=== PATIENT | female | born 1965 | race Caucasian/White ===

== ENCOUNTER 2019-02-20 19:12 | Outpatient (REF) | payer OTHER, SELFPAY ==
[2019-02-20 19:51] LABS: TSH (W/Ref FT4) 1.19 uIU/mL (0.36-3.74)
== END 2019-02-20 19:32 ==
LOC: NCHCN 19:12
PROVIDERS: PCP Nurse Practitioner Family; Visit Provider Nurse Practitioner Family
DX: E03.9 Hypothyroidism, unspecified (principal)
CPT/HCPCS: 84443

== ENCOUNTER 2019-03-19 01:15 | Outpatient (CLI) | payer OTHER, SELFPAY ==
--- NOTE | 2019-03-19 13:15 | DI.MAMMO_ITS ---
EXAM: MG MAMMO SCREENING CLINICAL HISTORY: SCREENING, PREVENTIVE CARE Z00.00. TECHNIQUE: Bilateral full field digital CC and MLO mammographic images were obtained with 3D tomosyn thesis and utilizing computer aided detection (CAD). COMPARISON: There are multiple priors with the most recent from 11/30/2017. FINDINGS: Masses/Architectural Distortion: None seen. Microcalcifications: No suspicious pleomorphic-type are seen. IMPRESSION: 1. No significant interval change with no specific features of malignancy noted. 2. Unless there is more urgent need, screening mammography is recommended, as per [employer] [place] guidelines. ACR BI-RAD Category- 1 Negative Breast Density - Category B - Scattered areas of fibroglandular density A negative radiographic report should not delay biopsy if a dominant or clinically suspicious mass is present. Up to ten percent of cancers are not identified on mammography. A negative report may reinforce clinical impression. Adenosis and dense breasts may obscure an underlying neoplasm. False positive reports average 6 to 10%.
== END 2019-03-19 01:35 ==
PROVIDERS: PCP Nurse Practitioner Family; Visit Provider Nurse Practitioner Family
DX: Z00.00 Encounter for general adult medical examination without abnormal findings (principal); Z12.31 Encounter for screening mammogram for malignant neoplasm of breast
CPT/HCPCS: 77063; 77067

== ENCOUNTER 2019-05-11 16:16 | Emergency (ER) | payer OTHER, SELFPAY ==
[2019-05-11 16:23] VITALS: BP 148/96; PULSE 111; RESP 21; TEMP 36.7; O2SAT 98
--- NOTE | 2019-05-11 16:39 | DI.CT_ITS ---
EXAM: CT ABDOMEN PELVIS W CLINICAL HISTORY: right sided abdominal pain TECHNIQUE: 100 cc Omnipaque 350 IV. COMPARISON: ABD PELVIS WITH CONTRAST from 01/29/2015 ABD PELVIS WITH CONTRAST from 01/29/2015 FINDINGS: Heart size is normal. Lung bases are clear. The liver, gallbladder, spleen, adrenals, pancreas and kidneys are unremarkable. There is some mildly increased density within the central mesenteric fat, similar to the previous exam. High density material is seen in the appendix which does not appear dilated. There are a few scattered diverticula but no evidence of diverticulitis. There is no small bowel distension. The bladder, uterus and ovaries are unremarkable. IMPRESSION: Stranding in the mesenteric fat, similar to the previous exam. No evidence of appendicitis or other acute abnormality.
--- NOTE | 2019-05-11 16:40 | W.ED.GENAD ---
Discharge Plan Disposition Patient Disposition: HOME Condition: Stable Discharge Details Chief Complaint: Abd Prob Clinical Impression: Flank pain, Pyelonephritis Primary Care Provider: Berto Amaya ED Provider: Spenser Saavedra Home Meds and New Rx's Prescriptions: New levofloxacin 750 mg tablet 750 mg PO DAILY Qty: 7 RF: 0 Continued multivitamin [Multi-Day] 1 EACH tablet 1 ea PO DAILY RF: 0 levothyroxine 88 MCG tablet 88 mcg PO DAILY RF: 0 calcium carbonate [Calcium 500] 500 MG tablet 500 mg PO DAILY RF: 0 iodoral DAILY RF: 0 valacyclovir [Valtrex] 500 MG tablet 500 mg PO BID PRNQty: 6 RF: 3 escitalopram oxalate [Lexapro] 20 MG tablet 1 tab PO DAILY RF: 0 bupropion HCl [Wellbutrin XL] 150 mg Tablet Extended Release 24 Hr 150 mg PO TID RF: 0 Discharge Instructions Instructions: Urinary Tract Infection in Women (ED) Additional Instructions: if you have severe worsening pain, fevers or persistent vomit return to the emergency department if symptoms continue in 4 days follow up with your primary care provider Medical Decision Making 53 yo female with hx of hypothyroidism and anxiety, no prior abdominal surgeries per pt, comes in with 3 days of intermittent right sided flank and abdomen pain. Can't think of anything that makes it come on and denies fevers, chills, urinary symptoms and no vomit. She has mild pain withp alpation to the right oblique area. No guarding or rebound. No lower abdominal pain or tenderness. Unclear etiology of symptoms but given 3 days of symptoms will obtain ct to eval for kidney stone vs cholecystitis though no cortes's sign and also obtain lipsae to eval for pancreatitis. pt's labs show likely uti and could have pyelo given the flank pain. Her CT shows very minimal thickening of distal tip of appendix. She has no pain on exam now and no tenderness. I discussed the results with the patient and at this time given unlikelihood of appendicitis based on exam and imaging findings she would like to start abx for pyelo and go home. She understands importance of returning if she is worsening Differential Diagnosis Differential Diagnosis: kidney stone, pyelo, pancreatitis Medical Records Medical records reviewed: Yes I reviewed the patient's medical records. Imaging Data Radiologic Study: Attestation: I personally reviewed and interpreted this imaging study as follows: Imaging: CT Scan Radiologist's impression: IMPRESSION: 1. Minimal mucosal thickening distal tip of the appendix. This likely does not represent appendicitis, however, given the history of right-sided pain clinical correlation and possible followup suggested. 2. Mesenteric fat stranding as described which is nonspecific but can be seen with pancreatitis or mesenteric inflammation. 3. Small sliding-type hernia. Lab Data Lab results reviewed: Yes I reviewed the patient's lab results. HPI General Mode of arrival: ambulatory. Date/Time Provider Initiated Documentation: 05/11/19 16:35. Limitations to Documentation: no limitations. Information obtained by: patient. History of Present Illness 53 year old F presents to the emergency department with the chief complaint of abdominal pain, described as moderate, Patient reports no radiation. Patient started experiencing this day(s) (3) No relieving factors improve symptom(s), No exacerbating factors reported . Related Data Home Medications Medication Instructions Recorded Confirmed Iodoral DAILY 05/05/13 calcium carbonate [Calcium 500] 500 mg PO DAILY 05/05/13 05/11/19 levothyroxine 88 mcg PO DAILY tab-cap 05/05/13 05/11/19 multivitamin [Multi-Day] 1 ea PO DAILY 05/05/13 05/11/19 valacyclovir [Valtrex] 500 mg PO BID PRN #6 tab-cap 03/19/14 05/11/19 escitalopram oxalate [Lexapro] 1 tab PO DAILY 12/31/15 05/11/19 bupropion HCl [Wellbutrin XL] 150 mg PO TID 05/11/19 05/11/19 levofloxacin 750 mg PO DAILY #7 tab 05/11/19 Previous Rx's Medication Instructions Recorded levofloxacin 750 mg PO DAILY #7 tab 05/11/19 Allergies Allergy/AdvReac Type Severity Reaction Status Date / Time No Known Allergies Allergy Unverified 05/11/19 16:28 General Stated Complaint: Abd Prob DARIO: 3 Review of Systems All systems reviewed & are unremarkable except as noted in HPI and below Constitutional Constitutional: Denies chills, Denies fever(s) and Denies weakness ENT Ears, Nose, Mouth, and Throat: Denies change in voice Cardiovascular Cardiovascular: Denies chest pain and Denies dyspnea Respiratory Respiratory: Denies cough and Denies dyspnea Gastrointestinal Gastrointestinal: Denies abdominal pain, Denies nausea and Denies vomiting Musculoskeletal Musculoskeletal: Denies joint swelling Neurologic Neurologic: Denies weakness [facility] Medical History (Updated 12/31/15 @ 07:07 by Vish Redmond DO) Anxiety Dyslipidemia Fatigue Hypothyroidism Obesity Family History (Updated 11/09/13 @ 21:27 by ) Other Diabetes Hyperlipidemia Personal history of malignant neoplasm Social History Smoking/Tobacco Use Status: Never Alcohol Intake: current Alcohol Intake frequency: holidays/special occasions only Drug use: Never Substance use type: does not use Do you feel safe at home: Yes Do you feel safe in your relationship?: Yes Exam Const General: no acute distress Orientation: alert HENMT Head: normal to inspection Ears: external ears normal General nose exam: external nose normal Mouth: moist mucous membranes Eyes General: appearance normal, both eyes and all related structures Neck Neck: normal visual inspection Resp Effort & Inspection: normal respiratory effort and able to speak in complete sentences Cardio Rate: regular rate GI Palpation: soft Skin General skin exam: no rashes or lesions noted Neuro General: alert and oriented x3 Extrem General: normal to inspection Psych Mental Status: mental status grossly normal Course Vital Signs Vital signs: Vital Signs Temperature 36.7 C 05/11/19 16:23 Pulse 111 H 05/11/19 16:23 Respiratory Rate 21 05/11/19 16:23 Blood Pressure 148/96 H 05/11/19 16:23 Pulse Oximetry 98 05/11/19 16:23 Temperature 36.7 C 05/11/19 16:23 Temperature Source Skin 05/11/19 16:23 Pulse 111 H 05/11/19 16:23 Respiratory Rate 21 05/11/19 16:23 Respiratory Effort 05/11/19 16:27 Blood Pressure 148/96 H 05/11/19 16:23 Blood Pressure Position Sitting 05/11/19 16:23 Pulse Oximetry 98 05/11/19 16:23 Oxygen Delivery Method Room Air 05/11/19 16:23 Oxygen Flow Rate 0 05/11/19 16:23 Pain Level 7 05/11/19 16:37
[2019-05-11] MEDS: Normal Saline 1,000 ML 1000 ML IV (17:01)
[2019-05-11 17:09] LABS: Abs Immature Grans 0.03 k/cumm (0.0-0.09); Absolute Basophil Count 0.03 k/cumm (0.0-0.2); Absolute Eosinophil Count 0.21 k/cumm (0.0-0.7); Absolute Lymphocyte Count 2.54 k/cumm (1.2-3.4); Absolute Monocyte Count 0.67 k/cumm (0.11-0.7); Absolute Neutrophil Count 5.26 k/cumm (1.2-6.7); Basophils % 0.3; Eosinophils % 2.4; HCT 39.5 % (36.0-46.0); HGB 13.1 g/dL (12.0-15.5); Immature Grans % 0.3; Lymphocytes % 29.1; Mean Corp. HGB Concentration 33.2 g/dL (32.0-36.0); Mean Corpuscular Hemoglobin 29.9 pg (27.0-33.0); Mean Corpuscular Volume 90.2 fL (80-95); Mean Platelet Volume 11.3 fL (8.0-11.0); Monocytes % 7.7; Neutrophils % 60.2; Platelet Count 249 x1000/uL (130-400); RBC 4.38 m/cumm (4.00-5.20); RBC Distribution Width 13.5 % (11.7-14.6); White Blood Cell Count 8.74 k/cumm (4.4-10.8)
[2019-05-11 17:18] LABS: Bilirubin Negative (Negative); Blood Negative (Negative); Clarity Clear (Clear); Glucose Negative (Negative); INR 0.9 (0.9-1.1); Ketones Negative (Negative); Leukocyte Esterase Small (Negative); Nitrite Negative (Negative); PTT Activated 22.5 sec (21.0-31.4); Specific Gravity >= 1.030 (1.005-1.025); Urobilinogen 0.2 EU/dL (Up TO 0.2)
[2019-05-11 17:19] LABS: ALT 32 U/L (14-59); AST 23 U/L (15-37); Albumin 3.9 g/dL (3.4-5.0); Alkaline Phosphatase 137 U/L (46-116); Anion Gap 9.3 mmol/L (3-11); BUN 14 mg/dL (7-18); Bilirubin, Total 0.1 mg/dL (0.2-1.0); CO2 28.7 mmol/L (21.0-32.0); Chloride 104 mmol/L (98-107); Glucose 108 mg/dL (74-106); Lipase 88 U/L (73-393); Magnesium 2.1 mg/dL (1.8-2.4); Potassium 3.9 mmol/L (3.5-5.1); Sodium 142 mmol/L (136-145); Total Protein 7.7 g/dL (6.4-8.2)
[2019-05-11] MEDS: Omnipaque 350 MG/ML 100 ML BTL IJ (17:21)
[2019-05-11 17:24] LABS: Bacteria Moderate HPF (Negative); C & S Indicated? Yes; Casts Negative LPF (Negative); Crystals Negative HPF (Negative); Epithelial Cells Few HPF (Negative); Mucus Negative (Negative); Other Cells Negative (Negative); RBC Negative HPF (0-2)
[2019-05-11] MEDS: Normal Saline Flush 10 ML SYR IVP (17:27)
--- NOTE | 2019-05-11 18:05 | DI.VRAD_ITS ---
PROCEDURE INFORMATION: Exam: CT Abdomen And Pelvis With Contrast Exam date and time: 05/11/2019 5:26 PM Age: 53 years old Clinical history: Other: Right sided abdominal pain TECHNIQUE: Imaging protocol: Computed tomography of the abdomen and pelvis with intravenous contrast. Radiation optimization: All CT scans at this facility use at least one of these dose optimization techniques: automated exposure control; mA and/or kV adjustment per patient size (includes targeted exams where dose is matched to clinical indication); or iterative reconstruction. Contrast material: OMNIPAQUE 350; Contrast volume: 100 ml; Contrast route: IV; COMPARISON: CT ABD PELVIS WITH CONTRAST 01/29/2015 10:33 AM FINDINGS: Lungs: 2 mm calcified granuloma abutting the pleura in the right lung base (series 5, image 34). Small sliding-type hiatal hernia. Liver: Normal. No mass. Gallbladder and bile ducts: Normal. No calcified stones. No ductal dilation. Pancreas: There is moderate fat stranding of the mesentery extending from the level of the pancreatic head down predominantly toward the left side. This is similar but increased to the comparison study of 01/29/2015. It is nonspecific but could be seen in pancreatitis or mesenteric inflammation. Spleen: Normal. No splenomegaly. Adrenals: Normal. No mass. Kidneys and ureters: Normal. No hydronephrosis. Stomach and bowel: Unremarkable. No obstruction. No mucosal thickening. Appendix: There is some very minimal thickening of the appendiceal wall at the distal tip (series 6 image 45) of this is less than 2 mm and within normal limits. The surrounding fat planes are well-maintained. Intraperitoneal space: Unremarkable. No free air. No significant fluid collection. Vasculature: Unremarkable. No abdominal aortic aneurysm. Lymph nodes: Unremarkable. No enlarged lymph nodes. Bladder: Unremarkable as visualized. Reproductive: Unremarkable as visualized. Bones/joints: Unremarkable. No acute fracture. Soft tissues: Unremarkable. IMPRESSION: 1. Minimal mucosal thickening distal tip of the appendix. This likely does not represent appendicitis, however, given the history of right-sided pain clinical correlation and possible followup suggested. 2. Mesenteric fat stranding as described which is nonspecific but can be seen with pancreatitis or mesenteric inflammation. 3. Small sliding-type hernia. Dictated and Authenticated by: Josiah Keller MD. Ordering:LIZZIE Dueñas MD
[2019-05-11] MEDS: Acetaminophen 500 MG TAB (18:32)
[2019-05-11] MEDS: levoFLOXacin 500 MG, levoFLOXacin 250 MG 750 MG PO (18:32)
[2019-05-11 18:33] VITALS: BP 132/78; PULSE 88; RESP 18; TEMP 37.1; O2SAT 99
== END 2019-05-11 18:35 | disposition home or self-care (01) ==
PROVIDERS: Emergency Provider Emergency Medicine; PCP Nurse Practitioner Family
DX: N10 Acute pyelonephritis (principal); M54.5 Low back pain
CPT/HCPCS: 36415; 80053; 83690; 96360; 99285; 74177; 81003; 81015; 83735; 85025; 85610; 85730; 87086; 99284; J3490

== ENCOUNTER 2019-05-17 17:16 | Emergency (ER) | payer OTHER, SELFPAY ==
[2019-05-17 17:21] VITALS: BP 133/86; PULSE 115; RESP 16; TEMP 36.4; O2SAT 98
--- NOTE | 2019-05-17 17:29 | W.ED.GENAD ---
Discharge Plan Disposition Patient Disposition: HOME Condition: Improving Discharge Details Chief Complaint: Urinary Clinical Impression: Mesenteric panniculitis Primary Care Provider: Berto Amaya ED Provider: Felicia Bourne Home Meds and New Rx's Prescriptions: New cephalexin [Keflex] 500 mg capsule 500 mg PO BID 5 Days Qty: 10 RF: 0 Continued multivitamin [Multi-Day] 1 EACH tablet 1 ea PO DAILY RF: 0 levothyroxine 88 MCG tablet 88 mcg PO DAILY RF: 0 calcium carbonate [Calcium 500] 500 MG tablet 500 mg PO DAILY RF: 0 iodoral DAILY RF: 0 valacyclovir [Valtrex] 500 MG tablet 500 mg PO BID PRNQty: 6 RF: 3 bupropion HCl [Wellbutrin XL] 150 mg Tablet Extended Release 24 Hr 100 mg PO TID RF: 0 levofloxacin 750 mg tablet 750 mg PO DAILY Qty: 7 RF: 0 Discharge Instructions Instructions: Abdominal Pain (ED) Additional Instructions: Alternate Tylenol and Motrin as needed and directed for pain. Follow a clear liquid diet over the next few days and then advance your diet as tolerated. Follow-up with primary care doctor within the next week for reevaluation. Return to the emergency department if you develop any worsening or new concerning symptoms. Discharge Data Discharge Date/Time-TO BE ENTERED AT DEPARTURE: 05/17/19 19:50 Discharge Physician: Felicia Bourne Medical Decision Making [id number] -- 53yo F seen here last week and diagnosed with possible pyelonephritis treated with Levaquin presents with persistent lower abdominal pain, nausea and low-grade fever 100.5. Denies any urinary symptoms. 1 dose of Levaquin left. Patient had a urinalysis 2 days ago which noted 10-20 WBCs and small leukocyte esterase as well as a CT which was negative for acute findings but did note There is some mildly increased density within the central mesenteric fat, similar to the previous exam. High density material is seen in the appendix which does not appear dilated. Heart rate 110s on arrival. Afebrile. Patient appears nontoxic and comfortable. Abdomen soft and nondistended without rigidity. She has mild tenderness across lower abdomen, worse in right lower quadrant. No rebound. Negative heel jar sign. Negative obturator sign. Discussed with patient at length that her symptoms could be due to UTI, pyelonephritis, gastroenteritis, appendicitis. As her CT noted high density material within the appendix last week, and her pain seems to be worse in the right lower quadrant, discussed obtaining repeat CT imaging of which she is agreeable. Will place an IV, bolus IV fluids, Toradol, screening labs, urinalysis and CT abdomen and pelvis. 1900 --labs and imaging reviewed. Normal white blood cell count 8. Normal electrolytes. Urinalysis notes 5-10 WBCs with trace leukocyte esterase but does appear contaminated. CT abdomen and pelvis notes mesenteric fat stranding which is nonspecific but could be seen in mesenteric panic colitis as well as hyperdense material within the appendix which could represent contrast versus appendicolith but otherwise no acute appendicitis. Patient feels significantly better after Toradol and she is requesting to go home. Case discussed with Dr. Smith --states her symptoms could be due to findings found within mesentery which is nonspecific. Agrees with plan for clear liquids and advance diet as tolerated, alternating Tylenol and Motrin. Advised to follow-up with a primary care doctor for reevaluation and to return here with any concerns. Patient was also given a prescription for Keflex if her symptoms do not improve or worsen as she did have 5-10 WBCs in the urine in the setting of fever, although discussed that this could be contaminated. Medical Records Medical records reviewed: Yes I reviewed the patient's medical records. Imaging Data Radiologic Study: Radiologist's impression: CT Abdomen And Pelvis With Contrast Exam date and time: 05/17/2019 6:49 PM Age: 53 years old Clinical history: Abdominal pain; Other: R sided pain on compression, one week TECHNIQUE: Imaging protocol: Computed tomography of the abdomen and pelvis with intravenous contrast. COMPARISON: CT ABDOMEN PELVIS W 05/11/2019 5:25 PM FINDINGS: Lungs: Visualized lung bases are unremarkable. Mediastinum: A small hiatal hernia is present. Liver: The liver is normal. Gallbladder and bile ducts: The gallbladder is normal. Pancreas: The pancreas is normal. Spleen: The spleen is normal. Adrenals: The adrenal glands are normal. Kidneys and ureters: The kidneys are normal. Stomach and bowel: Unremarkable. No obstruction. No mucosal thickening. Appendix: Hyperdense material in the appendix may represent retained contrast versus appendiculolith. The appendix is otherwise normal in size and appearance. Intraperitoneal space: Unchanged well demarcated fat stranding within the mid mesentery. Vasculature: The aorta is normal. Lymph nodes: Unremarkable. No enlarged lymph nodes. Bladder: The bladder is normal. Reproductive: Unremarkable as visualized. Bones/joints: Unremarkable. No acute fracture. Soft tissues: Unremarkable. IMPRESSION: 1. Similar appearing well demarcated fat stranding within the mesentery is nonspecific but can be seen in the setting of mesenteric panniculitis. 2. Hyperdense material in the appendix could represent retained contrast versus appendiculolith. The appendix is otherwise normal in size and appearance. Lab Data Lab results reviewed: Yes I reviewed the patient's lab results. Labs: Laboratory Tests Range/Units 05/17/19 05/17/19 05/17/19 17:30 17:55 17:55 WBC (4.4-10.8) k/cumm 8.21 RBC (4.00-5.20) m/cumm 4.66 Hgb (12.0-15.5) g/dL 13.7 Hct (36.0-46.0) % 41.4 MCV (80-95) fL 88.8 MCH (27.0-33.0) pg 29.4 MCHC (32.0-36.0) g/dL 33.1 RDW (11.7-14.6) % 13.7 Plt Count (130-400) x1000/uL 290 MPV (8.0-11.0) fL 10.6 Immature Gran % 0.2 Neutrophils % 64.3 Lymphocytes % 24.2 Monocytes % 9.1 Eosinophils % 1.8 Basophils % 0.4 Absolute Neutrophils (1.2-6.7) k/cumm 5.27 Absolute Lymphocytes (1.2-3.4) k/cumm 1.99 Absolute Monocytes (0.11-0.7) k/cumm 0.75 H Absolute Eosinophils (0.0-0.7) k/cumm 0.15 Absolute Basophils (0.0-0.2) k/cumm 0.03 Sodium (136-145) mmol/L 139 Potassium (3.5-5.1) mmol/L 4.2 Chloride (98-107) mmol/L 101 Carbon Dioxide (21.0-32.0) mmol/L 27.9 Anion Gap (3-11) mmol/L 10.1 BUN (7-18) mg/dL 20 H Creatinine (0.55-1.02) mg/dL 0.94 Estimated GFR/1.73 m2 (mL/min/1.73m2) >= 60.00 Glucose (74-106) mg/dL 108 H Calcium (8.5-10.1) mg/dL 9.5 Total Bilirubin (0.2-1.0) mg/dL 0.2 AST (15-37) U/L 27 ALT (14-59) U/L 33 Alkaline Phosphatase (46-116) U/L 131 H Total Protein (6.4-8.2) g/dL 8.1 Albumin (3.4-5.0) g/dL 3.9 Urine Color (Yellow) Yellow Urine Clarity (Clear) Clear Urine pH (5-8) 5.5 Ur Specific [place] (1.005-1.025) >= 1.030 H Urine Protein (Negative) mg/dL Negative Urine Ketones (Negative) mg/dL Negative Urine Blood (Negative) Negative Urine Nitrite (Negative) Negative Urine Bilirubin (Negative) Negative Urine Urobilinogen (Up TO 0.2) EU/dL 0.2 Ur Leukocyte Esterase (Negative) Trace H Urine RBC (0-2) HPF 0-2 Urine WBC (0-5) HPF 5-10 Ur Epithelial Cells (Negative) HPF Many Urine Crystals (Negative) HPF Negative Urine Bacteria (Negative) HPF Rare Urine Mucus (Negative) Negative Ur Culture Indicated? No/sq. contamination Urine Glucose (Negative) mg/dL Negative HPI General Mode of arrival: ambulatory. Date/Time Provider Initiated Documentation: 05/17/19 17:25. Limitations to Documentation: no limitations. Information obtained by: patient. History of Present Illness 53 year old F presents to the emergency department with the chief complaint of lower abdominal/back pain, fever, Quality is described as aching, constant and other (cramping), and is localized to the abdomen. Patient reports radiation to back. Patient started experiencing this day(s) (10) and it has been constant. No relieving factors improve symptom(s), No exacerbating factors reported . Patient notes fever/chills and nausea/vomiting (nausea, no vomiting); denies confusion, chest pain, cough, diaphoresis, headaches, loss of appetite, malaise, rash, seizure, shortness of breath, syncope and weakness. Patient did receive the following treatments prior to arrival, none Related Data Home Medications Medication Instructions Recorded Confirmed Iodoral DAILY 05/05/13 calcium carbonate [Calcium 500] 500 mg PO DAILY 05/05/13 05/17/19 levothyroxine 88 mcg PO DAILY tab-cap 05/05/13 05/17/19 multivitamin [Multi-Day] 1 ea PO DAILY 05/05/13 05/17/19 valacyclovir [Valtrex] 500 mg PO BID PRN #6 tab-cap 03/19/14 05/17/19 bupropion HCl [Wellbutrin XL] 100 mg PO TID 05/11/19 05/17/19 levofloxacin 750 mg PO DAILY #7 tab 05/11/19 05/17/19 cephalexin [Keflex] 500 mg PO BID 5 Days #10 cap 05/17/19 Previous Rx's Medication Instructions Recorded levofloxacin 750 mg PO DAILY #7 tab 05/11/19 cephalexin [Keflex] 500 mg PO BID 5 Days #10 cap 05/17/19 Allergies Allergy/AdvReac Type Severity Reaction Status Date / Time No Known Allergies Allergy Unverified 05/17/19 17:24 General Stated Complaint: Urinary DARIO: 3 Review of Systems All systems reviewed & are unremarkable except as noted in HPI and below Constitutional Constitutional: Reports as per HPI, Denies chills, Reports fatigue, Reports fever(s) and Reports weakness Eyes Eyes: Denies blurry vision ENT Ears, Nose, Mouth, and Throat: Denies dizziness, Denies sore throat and Denies throat swelling Cardiovascular Cardiovascular: Denies chest pain and Denies dyspnea Respiratory Respiratory: Denies cough and Denies dyspnea Gastrointestinal Gastrointestinal: Reports abdominal pain, Denies diarrhea and Denies vomiting Genitourinary Genitourinary: Denies hematuria and Denies dysuria Musculoskeletal Musculoskeletal: Denies back pain and Denies numbness Integumentary/Breasts Skin/Breast: Denies lesions and Denies rash Neurologic Neurologic: Denies dizziness, Denies focal weakness, Denies numbness and Reports weakness Endocrine Endocrine: Reports fatigue Allergic/Immunologic Allergic/Immunologic: Denies throat swelling PFSH Medical History Anxiety Dyslipidemia Fatigue Hypothyroidism Obesity Surgical History No significant past surgical history (Acute) Family History Other Diabetes Hyperlipidemia Personal history of malignant neoplasm Social History Smoking/Tobacco Use Status: Never Alcohol Intake: current Alcohol Intake frequency: holidays/special occasions only Drug use: Never Substance use type: does not use Do you feel safe at home: Yes Do you feel safe in your relationship?: Yes Exam Const General: cooperative, healthy appearing and no acute distress HENMT Head: normal to inspection Face and sinus: normal facial exam Eyes General: appearance normal, both eyes and all related structures EOM: EOM intact bilaterally Neck Neck: normal visual inspection and No submandibular swelling Lymphatic: no lymphadenopathy noted Chest Chest: normal inspection of the chest and no tenderness Resp Effort & Inspection: normal respiratory effort and able to speak in complete sentences Auscultation: clear to auscultation bilaterally Cardio Rate: regular rate Rhythm: regular rhythm GI Inspection: normal to inspection Palpation: soft, not firm, not rigid and tender (Across lower abdomen, worse on right side.) Auscultation: normal bowel sounds Back/Spine/Pelvis Back: no CVA tenderness Skin General skin exam: no rashes or lesions noted Neuro General: alert, awake and oriented x3 Cognition: normal cognition Speech: speech normal Motor: muscle tone normal throughout Sensory Exam: no sensory deficits noted Extrem General: normal to inspection, full ROM, normal capillary refill, no calf tenderness bilaterally and no edema Psych Appearance: grossly normal Mental Status: mental status grossly normal Speech and Movement: speech and movement normal Affect: normal affect Course Vital Signs Vital signs: Vital Signs Temperature 97.5 F L 05/17/19 17:21 Pulse 115 H 05/17/19 17:21 Respiratory Rate 16 05/17/19 17:21 Blood Pressure 133/86 05/17/19 17:21 Pulse Oximetry 98 05/17/19 17:21 Temperature 97.5 F L 05/17/19 17:21 Temperature Source Skin 05/17/19 17:21 Pulse 115 H 05/17/19 17:21 Respiratory Rate 16 05/17/19 17:21 Respiratory Effort Non-Labored 05/17/19 17:21 Blood Pressure 133/86 05/17/19 17:21 Blood Pressure Position Sitting 11/30/19 17:21 Pulse Oximetry 98 05/17/19 17:21 Oxygen Delivery Method Room Air 05/17/19 17:21 Oxygen Flow Rate 0 05/17/19 17:21 Pain Level 6 05/17/19 17:27
[2019-05-17 17:36] LABS: Bilirubin Negative (Negative); Blood Negative (Negative); Clarity Clear (Clear); Glucose Negative (Negative); Ketones Negative (Negative); Leukocyte Esterase Trace (Negative); Nitrite Negative (Negative); Specific Gravity >= 1.030 (1.005-1.025); Urobilinogen 0.2 EU/dL (Up TO 0.2); pH 5.5 (5-8)
[2019-05-17 17:50] LABS: Bacteria Rare HPF (Negative); C & S Indicated? No/Sq. Contamination; Crystals Negative HPF (Negative); Epithelial Cells Many HPF (Negative); Mucus Negative (Negative); RBC 0-2 HPF (0-2)
[2019-05-17] MEDS: Ketorolac 30 MG/ML VIAL IVP (18:00)
[2019-05-17] MEDS: Normal Saline 1,000 ML 1000 ML IV (18:00)
[2019-05-17 18:02] LABS: Abs Immature Grans 0.02 k/cumm (0.0-0.09); Absolute Basophil Count 0.03 k/cumm (0.0-0.2); Absolute Eosinophil Count 0.15 k/cumm (0.0-0.7); Absolute Lymphocyte Count 1.99 k/cumm (1.2-3.4); Absolute Monocyte Count 0.75 k/cumm (0.11-0.7); Absolute Neutrophil Count 5.27 k/cumm (1.2-6.7); Basophils % 0.4; Eosinophils % 1.8; HCT 41.4 % (36.0-46.0); HGB 13.7 g/dL (12.0-15.5); Immature Grans % 0.2; Lymphocytes % 24.2; Mean Corp. HGB Concentration 33.1 g/dL (32.0-36.0); Mean Corpuscular Hemoglobin 29.4 pg (27.0-33.0); Mean Corpuscular Volume 88.8 fL (80-95); Mean Platelet Volume 10.6 fL (8.0-11.0); Monocytes % 9.1; Neutrophils % 64.3; Platelet Count 290 x1000/uL (130-400); RBC 4.66 m/cumm (4.00-5.20); RBC Distribution Width 13.7 % (11.7-14.6); White Blood Cell Count 8.21 k/cumm (4.4-10.8)
[2019-05-17] MEDS: Prochlorperazine 10 MG/2 ML VIAL IVP (18:04)
[2019-05-17] MEDS: Normal Saline 50 ML 200 ML (18:05)
[2019-05-17] MEDS: Normal Saline Flush 10 ML SYR IVP (18:07)
[2019-05-17 18:15] LABS: ALT 33 U/L (14-59); AST 27 U/L (15-37); Albumin 3.9 g/dL (3.4-5.0); Alkaline Phosphatase 131 U/L (46-116); Anion Gap 10.1 mmol/L (3-11); BUN 20 mg/dL (7-18); Bilirubin, Total 0.2 mg/dL (0.2-1.0); CO2 27.9 mmol/L (21.0-32.0); CREATININE 0.94 mg/dL (0.55-1.02); Calcium 9.5 mg/dL (8.5-10.1); Chloride 101 mmol/L (98-107); Glucose 108 mg/dL (74-106); Potassium 4.2 mmol/L (3.5-5.1); Sodium 139 mmol/L (136-145); Total Protein 8.1 g/dL (6.4-8.2)
--- NOTE | 2019-05-17 18:52 | DI.CT_ITS ---
EXAM: CT ABDOMEN PELVIS W CLINICAL HISTORY: lower abd pain, worse on R side, r/o appendicitis TECHNIQUE: Imaging Protocol: Axial computed tomography images with coronal and sagittal reformatted images were created and reviewed CONTRAST MATERIAL: Intravenous: Omnipaque 350 Contrast volume:100 mL contrast route:IV - Oral: No COMPARISON: ABD PELVIS WITH CONTRAST from 01/29/2015 CT ABDOMEN PELVIS W from 05/11/2019 FINDINGS: ABDOMEN: Lung Bases: Normal where visualized. Liver: Normal density. No measurable mass. Gallbladder and biliary tract: No radiodense calculus or dilation. Pancreas: Normal density, no abnormal calcifications or inflammatory process. Spleen: Normal. Kidneys: Normal size, contour and axis. No radiodense stones or obstructive uropathy. No masses seen. Adrenal glands: No masses seen. Abdominal Aorta: Abdominal portion non-dilated. PELVIS: Bladder: Symmetric distention, no gross wall thickening. Bowel: No obstruction or bowel wall thickening. The appendix again is seen and is normal in diameter. There is again seen high density material within the appendix. This is unchanged. This may repres ent contrast material or appendicoliths. No periappendiceal inflammatory changes are present. Peritoneal cavity: No ascites, collection or mesenteric inflammatory response. There is again seen st randing in the mesenteric fat. This is unchanged dating back to CT scan from 2013 Bones: Within normal limits. Reproductive organs: Within normal limits. Lymph nodes: Unremarkable. Impression: 1. Stable appearance of the appendix. There is again seen hyperdense material within the appendix. T his may represent retained contrast versus appendicolith. The appendix is otherwise unremarkable. I t is normal in size. No periappendiceal inflammatory changes are present. 2. Stable fat stranding within the mesentery. This is nonspecific. DATA REPOSITORY: All CT scans at this facility are submitted to the National Radiology Data Registry (NRDR) Dose Index Registry (DIR) with the [employer] (ACR). RADIATION OPTIMIZATION: All CT scans at this facility use at least one of these dose optimization te chniques: automated exposure control; mA and/or kV adjustment per patient size (includes targeted exa ms where dose is matched to clinical indication); or iterative reconstruction.
[2019-05-17] MEDS: Omnipaque 350 MG/ML 100 ML BTL IJ (18:55)
[2019-05-17 19:09] VITALS: BP 111/68; PULSE 101; RESP 20; O2SAT 96
--- NOTE | 2019-05-17 19:15 | DI.VRAD_ITS ---
PROCEDURE INFORMATION: Exam: CT Abdomen And Pelvis With Contrast Exam date and time: 05/17/2019 6:49 PM Age: 53 years old Clinical history: Abdominal pain; Other: R sided pain on compression, one week TECHNIQUE: Imaging protocol: Computed tomography of the abdomen and pelvis with intravenous contrast. COMPARISON: CT ABDOMEN PELVIS W 05/11/2019 5:25 PM FINDINGS: Lungs: Visualized lung bases are unremarkable. Mediastinum: A small hiatal hernia is present. Liver: The liver is normal. Gallbladder and bile ducts: The gallbladder is normal. Pancreas: The pancreas is normal. Spleen: The spleen is normal. Adrenals: The adrenal glands are normal. Kidneys and ureters: The kidneys are normal. Stomach and bowel: Unremarkable. No obstruction. No mucosal thickening. Appendix: Hyperdense material in the appendix may represent retained contrast versus appendiculolith. The appendix is otherwise normal in size and appearance. Intraperitoneal space: Unchanged well demarcated fat stranding within the mid mesentery. Vasculature: The aorta is normal. Lymph nodes: Unremarkable. No enlarged lymph nodes. Bladder: The bladder is normal. Reproductive: Unremarkable as visualized. Bones/joints: Unremarkable. No acute fracture. Soft tissues: Unremarkable. IMPRESSION: 1. Similar appearing well demarcated fat stranding within the mesentery is nonspecific but can be seen in the setting of mesenteric panniculitis. 2. Hyperdense material in the appendix could represent retained contrast versus appendiculolith. The appendix is otherwise normal in size and appearance. Dictated and Authenticated by: Garret Chairez MD. Ordering:EDWIN Duarte MD
== END 2019-05-17 19:50 | disposition home or self-care (01) ==
PROVIDERS: Emergency Provider Physician Assistant; PCP Nurse Practitioner Family
DX: K65.4 Sclerosing mesenteritis (principal)
CPT/HCPCS: 36415; 80053; 96361; 96374; 96375; 99285; 74177; 81003; 81015; 85025; 99284; J0780; J1885; J3490

== ENCOUNTER 2019-05-29 00:43 | Outpatient (CLI) | payer OTHER, SELFPAY ==
--- NOTE | 2019-05-29 08:45 | DI.US_ITS ---
EXAM: US PELVIS TRANSVAGINAL CLINICAL HISTORY: LOWER ABDOMINAL PAIN R10.30 TECHNIQUE: Ultrasound performed using standard protocol. Transabdominal and transvaginal exams wer e performed. COMPARISON: CT ABDOMEN PELVIS W from 05/17/2019 FINDINGS: The uterus measures 5.3 x 2.7 x 3.4 cm. The endometrial stripe measures 2 millimeters in thickness. No fibroids are seen. The ovaries were not identified. The ovaries were visualized on the recent CT from 17 May 2019 and appeared normal. There is no free fluid or hydronephrosis. The bladder is unremarkable. IMPRESSION: Pelvic ultrasound is within normal limits.
== END 2019-05-29 01:03 ==
PROVIDERS: PCP Nurse Practitioner Family; Visit Provider Nurse Practitioner Family
DX: R10.31 Right lower quadrant pain (principal)
CPT/HCPCS: 76830; 76856

== ENCOUNTER 2020-04-01 19:06 | Outpatient (REF) | payer OTHER, SELFPAY ==
[2020-04-01 18:31] LABS: TSH (W/Ref FT4) 5.55 uIU/mL (0.36-3.74)
[2020-04-01 18:46] LABS: FREE T4 0.94 ng/dL (0.76-1.46)
== END 2020-04-01 19:26 ==
LOC: NCHCN 19:06
PROVIDERS: PCP Nurse Practitioner Family; Visit Provider Nurse Practitioner Family
DX: E03.9 Hypothyroidism, unspecified (principal)
CPT/HCPCS: 84439; 84443

== ENCOUNTER 2020-05-14 07:35 | Outpatient (REF) | payer OTHER, SELFPAY ==
[2020-05-14 18:37] LABS: FREE T4 0.92 ng/dL (0.76-1.46)
== END 2020-05-14 07:55 ==
LOC: NCHCN 07:35
PROVIDERS: PCP Nurse Practitioner Family; Visit Provider Nurse Practitioner Family
DX: E03.9 Hypothyroidism, unspecified (principal)
CPT/HCPCS: 84439; 84443

== ENCOUNTER 2020-10-21 10:47 | Outpatient (REF) | payer OTHER, SELFPAY ==
--- NOTE | 2020-10-21 09:00 | PAPFT_PTH ---
PATIENT: Emily Michael [facility] U[id number] AGE/SX: 55/F ROOM: RE10/21/[address]: Berto Amaya : 1965 BED: DIS: 10/21/2020 SPEC #: [id number] RECD: 10/21/20 18:09 STATUS: MALI RETamra #: [id number] EFFIE: 10/21/20 09:[address]: Berto Amaya DEPT: [facility] Cytology RECD BY: Raine Austin Tissues: 1 - CX/ENDOCX FOR PAP SMEARS Procedures: PAP THIN PREP/UVM Screening HPV DNA PROBE Comments: [id number]
[2020-10-21 15:50] LABS: Hemoglobin A1C 5.5 % (<5.7)
[2020-10-21 16:08] LABS: ALT 32 U/L (14-59); AST 19 U/L (15-37); Albumin 4.4 g/dL (3.4-5.0); Alkaline Phosphatase 119 U/L (46-116); Anion Gap 9.2 mmol/L (3-11); BUN 22 mg/dL (7-18); Bilirubin, Total 0.3 mg/dL (0.2-1.0); CO2 27.8 mmol/L (21.0-32.0); CREATININE 0.8 mg/dL (0.55-1.02); Calcium 9.6 mg/dL (8.5-10.1); Calculated LDL 200 mg/dL (<100); Chloride 103 mmol/L (98-107); Cholesterol 289 mg/dL (<200); Glucose 103 mg/dL (74-106); HDL Cholesterol 75 mg/dL (40-60); Potassium 4.7 mmol/L (3.5-5.1); Sodium 140 mmol/L (136-145); TSH (W/Ref FT4) 1.71 uIU/mL (0.36-3.74); Total Protein 7.8 g/dL (6.4-8.2); Triglyceride 71 mg/dL (<150)
[2020-10-22 12:08] LABS: Hepatitis C Ab w Rflx HCV PCR Negative (Negative)
[2020-10-22 12:24] LABS: HIV-1/2 Ag & Ab Screen Negative (Negative)
== END 2020-10-21 10:48 | disposition home or self-care (01) ==
LOC: NCHCN 10:47
PROVIDERS: PCP Nurse Practitioner Family; Visit Provider Nurse Practitioner Family
DX: E03.9 Hypothyroidism, unspecified (principal); R73.9 Hyperglycemia, unspecified; Z68.37 Body mass index [BMI] 37.0-37.9, adult; Z11.4 Encounter for screening for human immunodeficiency virus [HIV]; Z11.59 Encounter for screening for other viral diseases; Z12.4 Encounter for screening for malignant neoplasm of cervix; Z11.51 Encounter for screening for human papillomavirus (HPV); Z00.00 Encounter for general adult medical examination without abnormal findings
CPT/HCPCS: 80053; 80061; 86803; 87389; 88142; 83036; 84443; 87624

== ENCOUNTER 2020-11-11 07:30 | Outpatient (CLI) | payer OTHER, SELFPAY ==
--- NOTE | 2020-11-11 | DI.MAMMO_ITS ---
Exam(s) MAMMO SCREENING EXAM: MAMMO SCREENING CLINICAL HISTORY: SCREENING,PREVENTIVE CARE,Z00.00. TECHNIQUE: Bilateral full field digital CC and MLO mammographic images were obtained with 3D tomosyn thesis and utilizing computer aided detection (CAD). COMPARISON: Prior mammograms dating back to 2010, the most recent being March 2019. FINDINGS: There are no CAD designations. There are no new spiculated masses nor malignant appearing microcalcification groups. There is no significant architectural distortion nor skin thickening-retraction. IMPRESSION: No radiographic evidence of malignancy. BI-RADS Category 1 - Negative Breast Density - Category A - Almost entirely fatty Breast density Category C or D implies that the patient has dense breast tissue. Dense breast tissue can make it harder to find cancer on a mammogram. Dense breast tissue is also associated with an incr eased risk of breast cancer. This information about the result of the mammogram report was provided to the patient to raise their awareness. Use this report when you speak with the patient about their risks for breast cancer, which includes their family history. At that time, you may recommend additional screening tests (Ultrasoun d or MRI) as these tests may add significant information. A negative radiographic report should not delay biopsy if a dominant or clinically suspicious mass is present. Up to ten percent of cancers are not identified on mammography. A negative report may reinforce clinical impression. Adenosis and dense breasts may obscure an underlying neoplasm. False positive reports average 6 to 10%. Patient will receive a letter notifying them of these results.
== END 2020-11-11 07:50 ==
PROVIDERS: PCP Nurse Practitioner Family; Visit Provider Nurse Practitioner Family
DX: Z00.00 Encounter for general adult medical examination without abnormal findings (principal); Z12.31 Encounter for screening mammogram for malignant neoplasm of breast
CPT/HCPCS: 77063; 77067

== ENCOUNTER 2020-11-30 11:04 | Outpatient (REF) | payer OTHER, SELFPAY ==
[2020-11-30 20:05] LABS: Calculated LDL 101 mg/dL (<100); Cholesterol 182 mg/dL (<200); HDL Cholesterol 65 mg/dL (40-60); Triglyceride 80 mg/dL (<150)
== END 2020-11-30 11:05 | disposition home or self-care (01) ==
LOC: NCHCN 11:04
PROVIDERS: PCP Nurse Practitioner Family; Visit Provider Nurse Practitioner Family
DX: E78.5 Hyperlipidemia, unspecified (principal)
CPT/HCPCS: 80061

== ENCOUNTER 2021-11-17 18:38 | Outpatient (REF) | payer OTHER, SELFPAY ==
[2021-11-17 15:34] LABS: Abs Immature Grans 0.02 10^3/uL (0.0-0.06); Absolute Basophil Count 0.04 10^3/uL (0.0-0.2); Absolute Eosinophil Count 0.17 10^3/uL (0.0-0.7); Absolute Lymphocyte Count 1.78 10^3/uL (1.2-3.4); Absolute Monocyte Count 0.63 10^3/uL (0.1-0.8); Absolute Neutrophil Count 3.99 10^3/uL (1.2-6.7); Basophils % 0.6; Eosinophils % 2.6; HCT 40.9 % (36.0-46.0); HGB 13.3 g/dL (11.2-15.7); Immature Grans % 0.3; Lymphocytes % 26.8; MCH 29.4 pg (27.0-33.0); MCHC 32.5 % (32.0-36.0); MCV 90 fL (80-95); MPV 12.4 fL (8.0-11.0); Monocytes % 9.5; Neutrophils % 60.2; Platelet Count 191 10^3/uL (130-400); RBC 4.53 10^6/uL (3.93-5.22); RDW 13.5 % (11.7-14.6); RDW-SD 44.8 fL; WBC 6.63 10^3/uL (4.4-10.8)
[2021-11-17 16:07] LABS: ALT 25 U/L (14-59); AST 18 U/L (15-37); Alkaline Phosphatase 120 U/L (46-116); Anion Gap 12.9 mmol/L (3-11); BUN 17 mg/dL (7-18); Bilirubin, Total 0.4 mg/dL (0.2-1.0); CO2 25.1 mmol/L (21.0-32.0); CREATININE 0.8 mg/dL (0.55-1.02); Calcium 8.9 mg/dL (8.5-10.1); Calculated LDL 89 mg/dL (<100); Chloride 102 mmol/L (98-107); Cholesterol 183 mg/dL (<200); Glucose 95 mg/dL (74-106); HDL Cholesterol 67 mg/dL (40-60); Potassium 4.5 mmol/L (3.5-5.1); Sodium 140 mmol/L (136-145); TSH (W/Ref FT4) 0.56 uIU/mL (0.36-3.74); Total Protein 7.2 g/dL (6.4-8.2); Triglyceride 135 mg/dL (<150)
[2021-11-17 17:21] LABS: Hemoglobin A1C 5.9 % (<5.7)
== END 2021-11-17 18:39 | disposition home or self-care (01) ==
LOC: NCHCN 18:38
PROVIDERS: PCP Nurse Practitioner Family; Visit Provider Nurse Practitioner Family
DX: E78.5 Hyperlipidemia, unspecified (principal); R73.9 Hyperglycemia, unspecified; E03.9 Hypothyroidism, unspecified; R53.83 Other fatigue
CPT/HCPCS: 80053; 80061; 83036; 84443; 85025

== ENCOUNTER 2022-04-12 18:26 | Outpatient (REF) | payer OTHER, SELFPAY ==
[2022-04-12 21:11] LABS: Bacteria Rare HPF (Negative); C & S Indicated? C&S Done As Ordered; Crystals Negative HPF (Negative); Epithelial Cells Few HPF (Negative); Mucus Negative (Negative); RBC 0-2 HPF (0-2)
[2022-04-14 16:03] LABS: Chlamydia Result Negative (Negative); GC Result Negative (Negative)
== END 2022-04-12 18:27 | disposition home or self-care (01) ==
LOC: LBN 18:26
PROVIDERS: Visit Provider Physician Assistant Medical
DX: R35.0 Frequency of micturition (principal); Z11.3 Encounter for screening for infections with a predominantly sexual mode of transmission; N89.8 Other specified noninflammatory disorders of vagina
CPT/HCPCS: 87491; 87591; 81015; 87086; 87480; 87510; 87660

== ENCOUNTER 2022-06-06 13:41 | Outpatient (REF) | payer OTHER, SELFPAY ==
[2022-06-06 19:06] LABS: Anion Gap 6.3 mmol/L (3-11); BUN 13 mg/dL (7-18); CO2 31.7 mmol/L (21.0-32.0); CREATININE 0.8 mg/dL (0.55-1.02); Calcium 9.6 mg/dL (8.5-10.1); Calculated LDL 109 mg/dL (<100); Chloride 99 mmol/L (98-107); Cholesterol 210 mg/dL (<200); Estimated GFR 86.42 (mL/min/1.73m2); Glucose 82 mg/dL (74-106); HDL Cholesterol 84 mg/dL (40-60); Potassium 4.3 mmol/L (3.5-5.1); Sodium 137 mmol/L (136-145); TSH 0.58 uIU/mL (0.36-3.74); Triglyceride 87 mg/dL (<150)
[2022-06-06 19:24] LABS: Hemoglobin A1C 5.8 % (<5.7)
== END 2022-06-06 13:42 | disposition home or self-care (01) ==
LOC: NCHCN 13:41
PROVIDERS: Visit Provider Nurse Practitioner Family
DX: E03.9 Hypothyroidism, unspecified (principal); L29.8 Other pruritus; R73.9 Hyperglycemia, unspecified; Z68.36 Body mass index [BMI] 36.0-36.9, adult; E78.5 Hyperlipidemia, unspecified
CPT/HCPCS: 80048; 80061; 83036; 84443; 87480; 87510; 87660

== ENCOUNTER 2022-07-18 03:12 | Outpatient (CLI) | payer OTHER, SELFPAY ==
[2022-07-18 10:21] LABS: Source Nasal/Nares
[2022-07-18 10:36] LABS: HCT 41.1 % (36.0-46.0); MCH 28.6 pg (27.0-33.0); MCHC 31.6 % (32.0-36.0); MCV 91 fL (80-95); MPV 11.1 fL (8.0-11.0); Platelet Count 219 10^3/uL (130-400); RBC 4.54 10^6/uL (3.93-5.22); RDW 13.5 % (11.7-14.6); WBC 5.78 10^3/uL (4.4-10.8)
[2022-07-18 10:54] LABS: ALT 21 U/L (14-59); AST 21 U/L (15-37); Albumin 4.1 g/dL (3.4-5.0); Alkaline Phosphatase 111 U/L (46-116); Anion Gap 7.3 mmol/L (3-11); BUN 14 mg/dL (7-18); Bilirubin, Total 0.6 mg/dL (0.2-1.0); CO2 28.7 mmol/L (21.0-32.0); CREATININE 0.8 mg/dL (0.55-1.02); Calcium 9.6 mg/dL (8.5-10.1); Chloride 103 mmol/L (98-107); Estimated GFR 86.42 (mL/min/1.73m2); Glucose 100 mg/dL (74-106); Potassium 4.4 mmol/L (3.5-5.1); Sodium 139 mmol/L (136-145); Total Protein 7.6 g/dL (6.4-8.2)
[2022-07-18 11:28] LABS: COVID-19 PCR Negative (Negative)
== END 2022-07-18 03:13 | disposition home or self-care (01) ==
LOC: LBO 03:12
PROVIDERS: PCP Nurse Practitioner Family; Visit Provider Obstetrics & Gynecology Gynecology
DX: N95.0 Postmenopausal bleeding (principal); Z01.818 Encounter for other preprocedural examination; Z01.812 Encounter for preprocedural laboratory examination; N81.89 Other female genital prolapse; Z20.822 Contact with and (suspected) exposure to COVID-19
CPT/HCPCS: 36415; 80053; 85027; 86850; 86900; 86901; 87635

== ENCOUNTER 2022-07-19 15:22 | Observation (INO) | payer OTHER, SELFPAY ==
[2022-07-19] VITALS (45 sets, daily range): BP systolic 74–126; BP diastolic 33–84; PULSE 62–87; RESP 9–24; TEMP 36–36.4; O2SAT 88–100; BMI 33.9
--- NOTE | 2022-07-19 | DI.CT_ITS ---
Exam(s) CT ABDOMEN PELVIS WO/W EXAM: CT ABDOMEN PELVIS WO/W TECHNIQUE: Imaging Protocol: Axial computed tomography images with coronal and sagittal reformatted images were created and reviewed. Images were performed from the lung bases through the ischial tuberosities before IV contrast and fol lowing IV contrast using a 70 second delay, followed by 7 minutes delayed images. CONTRAST MATERIAL: Intravenous: Omnipaque 350 Contrast volume:100 cc Oral: no COMPARISON: CT CT ABDOMEN PELVIS W from 05/17/2019 FINDINGS: ABDOMEN: Lung Bases: Dependent changes. Small hiatal hernia. Liver: Normal density. No measurable mass. Gallbladder and biliary tract: No radiodense calculus or dilation. Pancreas: Normal density, no abnormal calcifications or inflammatory process. Spleen: Normal. Kidneys: Normal size, contour and axis. No radiodense stones or obstructive uropathy. No suspicious m asses seen. The renal nephrograms and pyelograms are symmetric. The ureters appear intact. There is no evidence of extravasation of contrast from the ureters.. Adrenal glands: No masses seen. Lymph nodes: Within normal limits. Abdominal Aorta: Abdominal portion non-dilated. Soft tissues: Small amount of air is seen in the periumbilical region related to surgical procedure. PELVIS: Bladder: Decompressed by Romano catheter. Bowel: No obstruction or bowel wall thickening. Appendix normal. Peritoneal cavity: Fluid is noted around the liver and spleen as well as in the low pelvis. This is likely postsurgical. there are bubbles of free air seen in the pelvis and as well as superiorly at th e anterior aspect of the liver. There is stable mild increased density in the upper central mesenter ic fat as seen on the previous exam. Soft tissues: Bones: Degenerative disc changes at L5-S1. Reproductive organs: Status post hysterectomy. IMPRESSION: No evidence of ureteral injury. No evidence of ureteral obstruction. Abdominal fluid and small amount of free air consistent with recent surgery. RADIATION DOSE DELIVERED: 3,951.59mGy.cm Total DLP DATA REPOSITORY: All CT scans at this facility are submitted to the National Radiology Data Registry (NRDR) Dose Index Registry (DIR) with the [employer] (ACR). RADIATION OPTIMIZATION: All CT scans at this facility use at least one of these dose optimization te chniques: automated exposure control; mA and/or kV adjustment per patient size (includes targeted exa ms where dose is matched to clinical indication); or iterative reconstruction.
[2022-07-19 08:14] LABS: Source Nasal/Nares
[2022-07-19] MEDS: Lactated Ringers 1,000 ML 125 ML IV ×3 (08:42→22:20)
[2022-07-19 08:50] LABS: COVID-19 PCR Negative (Negative)
--- NOTE | 2022-07-19 09:10 | ANES.PREOP_ITS ---
General Info Date of Service Date Performed: 07/19/22 Height: 5 ft 1 in Weight: 81.5 kg Body Mass Index (BMI): 33.9 Surgical Procedure: Operation Date: 07/19/22 09:25 Proposed Procedure Side Surgeon p Hysterectomy Vaginal Laparoscopic Assist/BSO/Cysto Ev Magana MD s Anterior/Posterior Colporrhaphy Ev Magana MD Meds Allergies and Home Medications Allergies Allergy/AdvReac Type Severity Reaction Status Date / Time No Known Allergies Allergy Unverified 07/19/22 08:13 Home Medication Medication Instructions Recorded Iodoral DAILY 05/05/13 calcium carbonate 500 mg calcium 500 mg PO DAILY 05/05/13 (1,250 mg) tablet (Calcium 500) multivitamin (Multi-Day tablet) 1 ea PO DAILY 05/05/13 valacyclovir 500 mg tablet 500 mg PO BID PRN #6 tab-caps 03/19/14 (Valtrex) atorvastatin 40 mg tablet 40 mg PO DAILY 05/18/22 lorazepam 1 mg tablet 1 mg PO DAILY PRN 05/18/22 omeprazole 20 mg capsule,delayed 20 mg PO DAILY 05/18/22 release sertraline 100 mg tablet 100 mg PO DAILY 05/18/22 levothyroxine 88 mcg tablet 100 mcg PO DAILY 06/20/22 Current Visit Medications: Current Medications Generic Name Dose Route Start Last Admin Trade Name Freq PRN Reason Stop Dose Admin Ringer's Solution 1,000 mls @ 125 mls/hr 07/19/22 06:00 07/19/22 08:42 IV 08/17/22 23:59 125 mls/hr INFUSION VALDEMAR Administration Cefazolin Sodium/Dextrose 2 gm in 50 mls @ 100 mls/hr 07/19/22 06:00 Ancef Duplex IVPB 08/17/22 23:59 PREOP VALDEMAR IV Miscellaneous Supplies 1 each 07/19/22 06:00 Iv Access IV 08/17/22 23:59 DIRECTED VALDEMAR Sodium Chloride 0 ml 07/19/22 06:00 Normal Saline Flush 10 Ml Syr IV 08/17/22 23:59 PRN PRN Sodium Chloride 0 ml 07/19/22 06:00 Normal Saline 10 Ml Vial IJ 08/17/22 23:59 DIRECTED PRN Sterile Water 0 ml 07/19/22 06:00 Water,Injection,Sterile 10 Ml Vial IJ 08/17/22 23:59 DIRECTED PRN PFSH Active Problems Active Problems: Problem Status Onset Code Hyperlipidemia E78.5 Hypothyroidism Depression F32.A History of postmenopausal bleeding Z87.42 Pelvic organ prolapse quantification stage 3 rectocele N81.6 Screening for colorectal cancer Z12.11, Z12.12 Medical History Medical History Acid reflux Anxiety BMI 36.0-36.9,adult Dyslipidemia Fat necrosis of breast Fatigue LEOPOLDO (generalized anxiety disorder) Herpes labialis Hyperglycemia Hyperlipidemia Hypothyroidism Left leg pain Obesity Posterior vitreous detachment of left eye Tongue lesion Surgical History Surgical History No significant past surgical history Tobacco Smoking/Tobacco Use Status: Never Alcohol Alcohol Intake: current Alcohol intake frequency: holidays/special occasions only Substance Use Substance use: Never Substance use type: does not use Prental History History 2 Para 2 Hx # Term Pregnancies 2 Multiple births Hx # Pregnancies Ectopic pregnancies AB induced Hx Number of Living Children 2 AB spontaneous Vital Signs and Lab Results Vital Signs Most Recent Vital Signs in EMR: Most Recent Vital Signs Temp Pulse Resp BP Pulse Ox 36.4 C L 81 16 116/80 98 07/19/22 08:00 07/19/22 08:00 07/19/22 08:00 07/19/22 08:00 07/19/22 08:00 Lab Results Blood Type / Crossmatch: Patient ABO/Rh B Positive 07/18/22 Antibody Screen NEGATIVE 07/18/22 Complete Blood Count: White Blood Count 5.78 10^3/uL (4.4-10.8) 07/18/22 10:17 Red Blood Count 4.54 10^6/uL (3.93-5.22) 07/18/22 10:17 Hemoglobin 13.0 g/dL (11.2-15.7) 07/18/22 10:17 Hematocrit 41.1 % (36.0-46.0) 07/18/22 10:17 Platelet Count 219 10^3/uL (130-400) 07/18/22 10:17 Complete Metabolic Panel: Sodium 139 mmol/L (136-145) 07/18/22 10:17 Potassium 4.4 mmol/L (3.5-5.1) 07/18/22 10:17 Chloride 103 mmol/L (98-107) 07/18/22 10:17 Carbon Dioxide 28.7 mmol/L (21.0-32.0) 07/18/22 10:17 BUN 14 mg/dL (7-18) 07/18/22 10:17 Creatinine 0.8 mg/dL (0.55-1.02) 07/18/22 10:17 Est GFR (CKD-EPI 2020) 86.42 (mL/min/1.73m2) 07/18/22 10:17 Calcium 9.6 mg/dL (8.5-10.1) 07/18/22 10:17 Albumin 4.1 g/dL (3.4-5.0) 07/18/22 10:17 Glucose 100 mg/dL (74-106) 07/18/22 10:17 Liver Function Panel: Alanine Aminotransferase (ALT/SGPT) 21 U/L (14-59) 07/18/22 10: 17 Aspartate Amino Transf (AST/SGOT) 21 U/L (15-37) 07/18/22 10:17 Coagulation Panel: No Data to Display Cardiac Panel: No Data to Display Arterial Blood Gas: No Data to Display Venous Blood Gas: No Data to Display Pancreas Panel: No Data to Display Thyroid Panel: No Data to Display Infectious Disease: Coronavirus (COVID-19)(PCR) Negative (Negative) 07/19/22 08:08 Coronavirus 2019 Source Nasal/Nares 07/19/22 08:08 Blood Cultures: No Data to Display Toxicology Panel: No Data to Display Anesthesia Assessment and Plan Anesthesia History Personal History: No History of Anesthesia Complications Family History: No Family History of Anesthesia Complications Exercise Tolerance Exercise Tolerance: Metabolic Equivalents>4 Pertinent Negatives Pertinent Negatives: No Symptoms of GERD, No Major Cardiovascular Symptoms or Complaints, No Major Pulmonary Symptoms or Complaints and No History of CVA/TIA Cardiac & Pulmonary Exam Cardiac Exam: Normal S1/S2 Heart Sounds Pulmonary Exam: Clear Bilateral Breath Sounds Implantable Cardiac Device Does patient have a Pacemaker or an ICD?: No Airway Exam Known Difficult Airway: No Mallampati Class: 2 Mouth Opening: Normal (> 3cm) Thyromental Distance: Greater than 3 cm Neck Range of Motion: Full ROM Neck Circumference: Normal Teeth Condition: Other Airway Comments: One missing back upper left ASA Classification ASA Score: ASA 2 Emergency Case?: No NPO Status NPO Status: NPO Clears >2 hours, Solids >8 hours Anesthesia Plan Resuscitation Status: Full Code Anesthesia Technique: General Anesthesia Airway Planned: Endotracheal Tube Monitors Used: Standard Monitors
[2022-07-19] MEDS: ceFAZolin 2 GM/50 ML BAG IVPB ×2 (10:09→14:00)
[2022-07-19] MEDS: Bupivacaine 0.25% Pres-Free 30 ML VIAL (10:47)
--- NOTE | 2022-07-19 11:15 | UTER_PTH ---
PATIENT: Emily Michael LOC: ICU U#:[id number] AGE/SX: 56/F ROOM: ICU.222 RE07/19/[address]: Ev Magana : 1965 BED: A DIS: 07/20/2022 SPEC #: [id number] RECD: 07/19/22 17:14 STATUS: MALI REQ #: [id number] EFFIE: 07/19/22 11:[address]: Ev Magana DEPT: Surgical Specimen RECD BY: Raine Austin ENTERED: 07/19/22 17:15 SP TYPE: UTER OTHR DR: JOSEP LYNCH Tissues: 1 - UTERUS W OR W/O OVARIES(NOT TUMOR/PROLAPSE) Procedures: GROSS AND MICRO LEVEL 4 Comments: [id number]
[2022-07-19] MEDS: Lidocaine 1% Pres-Free W/EPI 1/200,000 10 ML VIAL (12:32)
--- NOTE | 2022-07-19 14:30 | DI.RAD_ITS ---
Exam(s) XR ABDOMEN FLAT PLATE EXAM: 2D digital imaging was performed. CLINICAL HISTORY: SURGICAL SPONGE/INSTRUMENT COUNT VERIFICATION. COMPARISON: No exams were available for comparison TECHNIQUE: Supine views of the abdomen performed. FINDINGS: BOWEL GAS PATTERN: Nondistended. CALCIFICATIONS: No radiopaque calcifications. OSSEOUS STRUCTURES: Normal for age. OTHER FINDINGS: No radiopaque foreign bodies identified. IMPRESSION: 1. Nonobstructive bowel gas pattern. 2. No radiopaque foreign bodies. DATA REPOSITORY: RADIATION DOSE DELIVERED:
--- NOTE | 2022-07-19 15:38 | ROE_ITS ---
Date of service: 07/19/22 Time of Service: 15:39 Operative Note Operative Note DATE OF PROCEDURE: 07/19/22 PRE-OP DIAGNOSIS: postmenopausal bleeding. pelvic organ prolapse POST-OP DIAGNOSIS: same bladder cystotomy and repair PROCEDURE: Laparoscopic Assisted Vaginal Hysterectomy. Bilateral salpingo-oophorectomy. Posterior colporrhaphy. Santacruz's culdoplasty. Bladder cystoscopy. Bladder cystotomy and repair. SURGEON: Ev Magana ASSISTING SURGEON: Julia Lucio Refer to Anesthesia Record ESTIMATED BLOOD LOSS: 200 PATHOLOGY: other (Cervix, uterus, right and left fallopian tube and ovaries to pathology) COMPLICATIONS: Other (2 Vicryl sutures visualized on the posterior wall of the bladder cavity Requiring surgical takedown of the vaginal cuff and removal of the sutures and repair of cystotomy from the suture removal) Patient was transported to: PACU Patient's condition: stable Indications: 56yo G2 postmenopausal female who [facility] for evaluation of solitary episode of postmenopausal bleeding. Patient noted small amount of dark red blood on toilet tissue. Pelvic ultrasound was performed that showed a endometrial stripe approximately 4 mm. Patient had been experiencing symptoms of a vaginal bulge and was diagnosed with a stage III rectocele with stage II uterine prolapse at the time of her examination on 06/20/2022. Decision was made to proceed with a hysterectomy with prolapse repair. Findings: Prolapse as noted above. Uterus small with normal-appearing right and left adnexa. Normal upper abdomen Procedure Description: Patient was taken to the operating room where she was placed in the sitting position and spinal anesthesia was administered. She received 2 g of Ancef prior to skin incision. She was then placed in the dorsal supine position and general endotracheal anesthesia was administered without difficulty. She was then placed in the dorsal lithotomy position in [facility] with SCDs in place. After being prepped and draped in the usual sterile fashion a surgical timeout was performed. Romano catheter was placed to gravity drainage. A bivalve speculum was placed in the vagina the anterior lip of the cervix was grasped with a sin gle-tooth tenaculum. A [employer] uterine manipulator was successfully inserted into the uterine cavityand the device left in place. Attention was then turned to the patient's abdomen. The umbilical fold was infiltrated with quarter percent Marcaine without epinephrine. A scalpel was then used to make a 12mm vertical skin incision in the umbilical fold. Two penetrating towel clips were used to tent up the skin and through the periumbilical incision and a Veres needle was introduced into the abdomen with carbon dioxide as the distention medium. Intra-abdominal placement was confirmed by a drop in the intra-abdominal pressure. Once a pneumoperitoneum was established a 12 mm Visiport was placed under direct visualization and intra-abdominal placement confirmed by use of the laparoscope. Patient was then placed in Trendelenburg position. At two sites approximately 6 cm diagonally from the umbilical incision the skin was infiltrated with 1cc of 0.25% Marcaine without epinephrine, incised with a scalpel and two 5 mm lower ports were placed under direct visualization. After careful inspection of the pelvis a LigaSure electrocautery device was used to clamp, cauterize and transect the left infundibulopelvic ligament which freed the left ovary and the attached left fallopian tube from the pelvic sidewall. The left round ligament and broad ligament were then clamped, cauterized and transected to the level of the lower uterine segment. The vesico-uterine peritoneum was incised and the the from the lower uterine segment and mobilized off of the body of the cervix. The pedicles of the suspensory, round and broad ligaments were inspected and noted to be hemostatic. On the contralateral side the right infundibulopelvic ligament with the attached right ovary and right fallopian tube was clamped,cauterized and transected. The right round and right broad ligaments were sequentially clamped, cauterized and transected using the Ligasure device to the level of the insertion of the uterine artery. The remaining the vesicouterine peritoneum was incised across the lower uterine segment and the bladder flap created using the Ligasure device and gentle counter traction. All pedicles were inspected and noted to be hemostatic. Decision was made to proceed with the vaginal portion of the case. Laparoscopic instruments were removed from the ports , the pneumoperitoneum was reduced, and the was abdomen covered with sterile drape. A weighted vaginal speculum was placed in the vagina and the anterior and posterior lips of the cervix were grasped with Keri clamps. A solution of 1% lidocaine with dilute epinephrine was used to infiltrate the body of the cervix in a circumferential fashion followed by a circumferential incision of the cervical epithelium with Bovie electrocautery. The posterior cul-de-sac was entered sharply and through the incision a long billed weighted speculum was placed into the posterior cul-de-sac. The vesicouterine fascia was identified and the anterior cul-de-sac was entered using blunt and sharp dissection. Through this incision a curved right angled retractor was inserted and used to retract the bladder away from the operative field. The left and right uterosacral ligament complexes were identified clamped, transected and suture-ligated and the suture held long. The remaining right and left broad ligament attachments were sequentially clamped, cauterized, and transected and the specimen was passed off of the operative field. The right uterosacral ligament pedicle was noted to be bleeding and the vessel clamped and suture ligated. The vaginal cuff angles were closed with [id number] stitches of 0 Vicryl on both sides and transfixed to the ipsilateral cardinal and uterosacral ligaments the remainder of the vaginal cuff was closed with figure of 8 stitches of 0 Vicryl in an interrupted fashion. Attention was then turned towards the posterior colporrhaphy. 1% lidocaine with dilute solution of epinephrine was injected in a horizontal fashion beneath the perineal skin at the base of the hymen and underneath the vaginal epithelium in a vertical fashion to the vaginal cuff. The perineal skin was then incised with scalpel and a tissue plane beneath the vaginal epithelium was created with use of Metzenbaum scissors. The posterior vaginal epithelium is dissected bilaterally away from the underl jose roberto fibromuscularis layer to the lateral margins of the vagina. 0 Vicryl suture was used to plicate in the midline the lateral margins of the posterior vaginal wall and a series of interrupted sutures incorporating a generous portion of the fibromuscularis. Plication began proximally and ended at the hymenal ring. The posterior vaginal wall, stripped of its epithelium, is plicated in the midline with interrupted vertically or transversely placed sutures that incorporate a generous purchase of the fibromuscularis. Plication begins proximally and progresses toward the hymenal ring. The redundant vaginal epithelium was trimmed and the edges of the vaginal epithelium reapproximated with a running 0 Vicryl suture. The perineal body was reapproximated with 2 interrupted sutures of 0 Vicryl and the vaginal epithelium over the perineal body was closed in a subcuticular fashion. Instruments removed from the vagina and attention was again turned to the abdomen where a pneumoperitoneum was reestablished and the pelvis inspected using the laparoscope. The vaginal cuff was intact and was hemostatic as were the round ligament and broad ligament pedicles both at 15mmHg and when the pressure was temporarily reduced to 5mmHg. The instruments were removed from the port sites under direct visualization, the pneumoperitoneum reduced, and the ports removed. The fascia of the periumbilical skin incision was closed with interrupted suture of 0 Vicryl. The skin of all port site incisions were reapproximated with a subcuticular closure of 4-0 Monocryl and and covered with skin glue. Bladder cystoscopy was then performed and both right and left ureters were located and noted to be peristalsing. There was no evidence of eflux of methylene blue dye from either ureters. The kumar of the bladder were carefully inspected and a Vicryl suture was noted both on the right and left side of the bladder trigone. There was not evidence of bleeding from the suture sites.The vaginal cuff sutures were removed and the bladder was retrograde filled with sterile infant formula. There was extravasation of the formula from the two sites where the most cephalad suture of the vaginal cuff had been placed and removed. 4-0 Monocryl was used to close the adventitia of both openings in a [id number] fashion. The bladder was refilled with sterile formula and no leakage was noted. The vaginal cuff was reapproximated in horizontal fashion with interrupted sutures of 0 Vicryl. Romano catheter was reinserted to gravity drainage and the patient was placed in the dorsal supine position. A abdominal x-ray was performed secondary to the extended nature of the case. There is no evidence of surgical instruments or lap sponges in the abdominal cavity. The patient was awakened, extubated, and transported recovery area in stable condition. All sponge lap needle counts correct x2.
[2022-07-19] MEDS: Normal Saline - Diluent 50 ML VIAL 98 ML IJ (17:18)
[2022-07-19] MEDS: Omnipaque 350 MG/ML 100 ML BTL IJ (17:19)
[2022-07-19] MEDS: Normal Saline Flush 10 ML SYR IV (17:20)
--- NOTE | 2022-07-19 17:28 | DI.VRAD_ITS ---
PROCEDURE INFORMATION: Exam: CT Abdomen And Pelvis Without And With Contrast Exam date and time: 07/19/2022 4:45 PM Age: 56 years old Clinical indication: Other: Assess patency of ureters; Prior surgery; Surgery date: Post-operative (0-2 days); Surgery type: Lavh, bso, cystoscopy, repair of bladder injury, TECHNIQUE: Imaging protocol: Computed tomography of the abdomen and pelvis without and with contrast. Radiation optimization: All CT scans at this facility use at least one of these dose optimization techniques: automated exposure control; mA and/or kV adjustment per patient size (includes targeted exams where dose is matched to clinical indication); or iterative reconstruction. Contrast material: OMNIPAQUE 350; Contrast volume: 100 ml; Contrast route: INTRAVENOUS (IV); COMPARISON: CT ABDOMEN PELVIS W 05/17/2019 6:52 PM FINDINGS: Lungs: This dependent atelectasis in both lungs. Mediastinal space: Small esophageal hiatal hernia. Liver: Diffuse fatty infiltration of the liver. Gallbladder and bile ducts: Normal. No calcified stones. No ductal dilation. Pancreas: Normal. No ductal dilation. Spleen: Normal. No splenomegaly. Adrenal glands: Normal. No mass. Kidneys and ureters: Normal. No hydronephrosis. Patent bilateral ureters. Stomach and bowel: Unremarkable. No obstruction. No mucosal thickening. Appendix: No evidence of appendicitis. Intraperitoneal space: Moderate amount of free fluid in the abdomen and pelvis. Edema and soft tissue stranding in the central abdominal mesentery. Vasculature: Unremarkable. No abdominal aortic aneurysm. Lymph nodes: Unremarkable. No enlarged lymph nodes. Urinary bladder: Romano catheter in the urinary bladder. Reproductive: Hysterectomy. Bones/joints: Degenerative disc disease L4-L5 and L5-S1. Degenerative narrowing of the bilateral hip joints. Soft tissues: Unremarkable. IMPRESSION: 1. Moderate amount of free fluid in the abdomen pelvis 2. Patent bilateral ureters 3. Other incidental findings as described Dictated and Authenticated by: Marci Rutherford MD. Ordering:STEPHEN Carreno MD
--- NOTE | 2022-07-19 17:38 | W.ANESPOSTOP ---
Postoperative Evaluation Date, Time and Location Date Performed: 07/19/22 Time Performed: 17:38 Patient Location: Day Surgery Unit Vital Signs Most Recent Imported Vital Signs: Most Recent Vital Signs Temp Pulse Resp BP Pulse Ox 36.4 C L 73 15 106/68 96 07/19/22 16:35 07/19/22 16:35 07/19/22 16:35 07/19/22 16:35 07/19/22 16:35 Pain Score Most Recent Pain Score: Most Recent Pain Score Pain Level 0 07/19/22 16:35 Assessment Mental Status: Arousable with meaningful communication (Patient not at baseline, but conversing appropriately. ) Airway and Respiratory Function: Patent airway with normal (patient baseline) respiratory exam Cardiovascular Function: Hemodynamically Unstable (See Explanation) (Remains on Neosynephrine gtt, on arrival in ICU at 0.6mcg/kg/min with orders for titration. BP appropriate on this rate. ) and Receiving care as an inpatient Hydration Status: Adequately Hydrated Nausea & Vomiting: No Nausea or Vomiting Pain: Pt. Denies Any Pain Peripheral Nerve Block: Patient did not receive a nerve block Postoperative Comments:: Patient and spouses questions answered. Report to [facility]
[2022-07-19] MEDS: Ketorolac 15 MG/ML VIAL IVP (20:05)
[2022-07-19] MEDS: LORazepam 1 MG TAB PO (21:37)
[2022-07-20] VITALS (59 sets, daily range): BP systolic 57–103; BP diastolic 25–82; PULSE 65–118; RESP 10–26; TEMP 36.5–36.6; O2SAT 88–98
[2022-07-20] MEDS: Ketorolac 15 MG/ML VIAL IVP ×3 (01:30→12:11)
[2022-07-20] MEDS: LORazepam 1 MG TAB PO (01:37)
[2022-07-20 06:18] LABS: HCT 32.9 % (36.0-46.0); HGB 10.2 g/dL (11.2-15.7); MCH 28.6 pg (27.0-33.0); MCV 92 fL (80-95); MPV 11.9 fL (8.0-11.0); Platelet Count 166 10^3/uL (130-400); RBC 3.57 10^6/uL (3.93-5.22); RDW 13.3 % (11.7-14.6); RDW-SD 45.4 fL; WBC 12.14 10^3/uL (4.4-10.8)
[2022-07-20] MEDS: Levothyroxine 100 MCG TAB PO (06:22)
[2022-07-20] MEDS: diphenhydrAMINE 50 MG/ML VIAL 25 MG IVP (06:25)
[2022-07-20] MEDS: Lactated Ringers 1,000 ML 125 ML IV (06:33)
[2022-07-20 06:37] LABS: ALT 14 U/L (14-59); AST 17 U/L (15-37); Albumin 3.1 g/dL (3.4-5.0); Alkaline Phosphatase 80 U/L (46-116); Anion Gap 6.8 mmol/L (3-11); BUN 13 mg/dL (7-18); Bilirubin, Total 0.3 mg/dL (0.2-1.0); CO2 28.2 mmol/L (21.0-32.0); CREATININE 0.7 mg/dL (0.55-1.02); Calcium 8.9 mg/dL (8.5-10.1); Chloride 105 mmol/L (98-107); Estimated GFR 101.44 (mL/min/1.73m2); Glucose 92 mg/dL (74-106); Potassium 4.1 mmol/L (3.5-5.1); Sodium 140 mmol/L (136-145)
--- NOTE | 2022-07-20 08:18 | PDOC.CMIN ---
- If Service Date Differs Date of service: 07/20/22 Time of Service: 08:18 Care Management Initial Assess REASON FOR HOSPITALIZATION:: lavh, bso, bladder cystostomy PAST MEDICAL HISTORY/PAST SURGICAL HISTORY:: All Active Problems. Hyperlipidemia (Acute). Hypothyroidism (Chronic). Depression (Chronic). History of postmenopausal bleeding (Acute). 2014. Nl EMBx. 2021. Pending u/s results. Pelvic organ prolapse quantification stage 3 rectocele (Acute). Screening for colorectal cancer (Acute). Medical History . Acid reflux. Anxiety. BMI 36.0-36.9,adult. Dyslipidemia. Fat necrosis of breast. Fatigue. LEOPOLDO (generalized anxiety disorder). Herpes labialis. Hyperglycemia. Hyperlipidemia. Hypothyroidism. Left leg pain. Obesity. Posterior vitreous detachment of left eye. Tongue lesion. Surgical History. No significant past surgical history PREVIOUS FUNCTIONAL STATUS/SOCIAL/FAMILY SUPPORTS:: Emily lives in [facility] with her Vicente. She has 2 adult children, 2 sisters and 2 brothers who all live locally and are supportive. Pt is independent in the community and with her ADL's at baseline. CURRENT FUNCTIONAL STATUS:: Emily is lying in bed when CM met with her. She is awake and able to engage in conversation. Per pt, her BP normally runs low but this morning she was unable to sit up in her chair due to dizziness. ADVANCE DIRECTIVES:: None on file. Has patient been provided with info about the portal/API?: Yes Did the patient sign up for the portal?: Yes (Prior to admission) CODE STATUS:: Full Code INSURANCE COVERAGE / FINANCIAL ISSUES:: Eduin CURRENT HOME/COMMUNITY SERVICES/EQUIPMENT:: None PRIMARY CARE PHYSICIAN:: Marcy Schmid PATIENT/FAMILY EDUCATION NEEDS:: Review discharge instructions, limitations, medications and plan to follow up with community providers. Discuss ask me three. TRANSPORTATION:: Via private vehicle with family. PLAN:: Anticipate, Emily will discharge home via private vehicle with family once medically ready per Surgeon. [facility] RN services will be ordered if indicated. Emily will follow up with community providers and discharge plan of care as prescribed.
--- NOTE | 2022-07-20 08:54 | PGE_ITS ---
Date of Service Date of service: 07/20/22 Time of Service: 08:54 Assessment and Plan Assessment and plan (1) History of laparoscopic-assisted vaginal hysterectomy: Status: Acute Assessment and plan: Patient was observed overnight with stable vital signs and excellent urine output. Imaging studies were performed and showed an intact urine collection system. She desires charged home. We will discontinue to allow ephedrine infusion and IV fluids and follow urine output and vital signs. Pain is currently well controlled. (2) H/O bilateral salpingo-oophorectomy: Status: Acute (3) H/O rectocele repair: Status: Acute (4) History of cystostomy: Status: Acute Assessment and plan: Occurred at the time of suture removal from bladder mucosa noted at the time of bladder cystoscopy at the completion of the surgery. 2 cystotomy sites were identified and repaired. Plan at this time is to leave the catheter to gravity drainage for approximately a week and have her presents to the office for a catheter removal with retrograde filling challenge and we Subjective Subjective Patient reports: pain is less (Patient reports no pain), tolerating a regular diet, flatus, no bowel movement, afebrile and other (Patient had pruritus last evening he was administered Benadryl with satisfactory relief); denies nausea, vomiting or shortness of breath Interval history since last seen: Patient was admitted for observation to the ICU after she underwent a lapar oscopic assisted vaginal hysterectomy bilateral salpingo-oophorectomy posterior colporrhaphy, bladder cystoscopy and repair of cystotomy created at the time of removal of a suture located in the posterior aspect of the bladder on the trigone. Postoperatively a abdominal/pelvic CAT scan was performed with IV contrast and showed intact ureters and bladder. Patient was observed in the ICU overnight and a phenylephrine IV infusion was continued until the morning of 07/20/2022. Patient's blood pressure and urine output have been been stable. Exam Narrative Exam Narrative: 1200 cc of urine in the Romano catheter in the last 12 hours. Const General: cooperative and comfortable Nutritional Appearance: obese Orientation: alert, awake and oriented x3 Neck Neck: normal visual inspection Resp Effort & Inspection: normal respiratory effort Auscultation: clear to auscultation bilaterally Cardio Rate: regular rate Rhythm: regular rhythm GI Inspection: normal to inspection, non-distended and incision (Steri-Strips intact incisions covered with Band-Aids) Palpation: soft and nontender Auscultation: normal bowel sounds Rectal Exam - female: deferred General: deferred Other: Romano catheter to gravity drainage. Blue-tinged urine in the Romano catheter bag. Back/Spine/Pelvis Back: no CVA tenderness, No erythema and No ecchymosis Skin General skin exam: no rashes or lesions noted Neuro Cognition: normal cognition Speech: speech normal Sensory Exam: no sensory deficits noted Extrem General: normal to inspection and full ROM (SCDs in place and operational) Psych Appearance: grossly normal Mental Status: mental status grossly normal Speech and Movement: speech and movement normal Mood: congruent mood Affect: normal affect Attitude: cooperative Thought Process: normal Thought Content: normal Insight: insight good Judgment: judgment good Objective Last Vital Signs Temp 97.7 F 07/20/22 06:10 Pulse 79 07/20/22 07:30 Resp 21 07/20/22 07:31 BP 97/61 L 07/20/22 07:30 Pulse Ox 96 07/20/22 08:21 Laboratory Results - last 24 hr 07/20/22 07/20/22 05:25 05:25 WBC 12.14 H RBC 3.57 L Hgb 10.2 L D Hct 32.9 L MCV 92 MCH 28.6 MCHC 31.0 L RDW 13.3 Plt Count 166 MPV 11.9 H Sodium 140 Potassium 4.1 Chloride 105 Carbon Dioxide 28.2 Anion Gap 6.8 BUN 13 Creatinine 0.7 Est GFR (CKD-EPI 2020) 101.44 Glucose 92 Calcium 8.9 Total Bilirubin 0.3 AST 17 ALT 14 Alkaline Phosphatase 80 Total Protein 6.0 L Albumin 3.1 L Reviewed Pertinent PMH: Yes Time Spent with Patient Time Spent with Patient: <25 minutes Time was spent: preparing to see the patient(eg.review tests), counseling the patient and care coordination
[2022-07-20] MEDS: Lactated Ringers 500 ML 1000 ML IV (10:40)
[2022-07-20] MEDS: Calcium Carbonate 1.25 GM TAB PO (11:03)
[2022-07-20] MEDS: Omeprazole 20 MG CAPCR PO (11:03)
[2022-07-20] MEDS: Atorvastatin 40 MG TAB PO (11:03)
[2022-07-20] MEDS: Multivitamin TAB 1 TAB PO (11:04)
[2022-07-20] MEDS: Sertraline 100 MG TAB PO (11:04)
[2022-07-20] MEDS: Normal Saline Flush 10 ML SYR IV (12:09)
[2022-07-20] MEDS: oxyCODONE 5 mg/Acetaminophen 325 mg TAB PO (12:59)
--- NOTE | 2022-07-20 13:36 | DSE_ITS ---
Date of service: 07/20/22 Time of Service: 13:37 DS: Diagnosis Discharge Diagnosis (1) History of laparoscopic-assisted vaginal hysterectomy: Status: Acute (2) H/O bilateral salpingo-oophorectomy: Status: Acute (3) H/O rectocele repair: Status: Acute (4) History of cystostomy: Status: Acute Discharge Plan Disposition Patient Disposition: Home Condition: Improving Discharge Details Reason For Visit: LAHV,BSO,Bladder Cystotomy Admit Date/Time: 07/19/22 15:22 Admit Provider: Ev Magana Attending Provider: Ev Magana Primary Care Provider: JOSEP LYNCH Hospital Course Hospital Course: Patient was admitted the morning of surgery and underwent a laparoscopic- assisted vaginal hysterectomy with bilateral salpingo-oophorectomy and posterior colporrhaphy. At the time of a bladder cystoscopy performed after the surgery to Vicryl sutures were noted on the posterior aspect of her bladder wall. This necessitated opening the vaginal cuff finding and removing the sutures. The bladder wall with the sutures were removed required reapproximation with a [id number] 4-0 Monocryl. We were unable to visualize methylene blue E flux from both of the patient's ureters and postoperatively she underwent a CT of her abdomen and pelvis which showed intact ureters and bladder. She was observed overnight and discharged home on postop day 1 with a Romano catheter to gravity drainage. It will be removed at the on 07/25/2022 [facility]. Pain medication will include ibuprofen and Percocet. Ysmw-ngq-xwelzes ibuprofen can be taken 400 mg every 4 hours as needed for pain block with scription for Percocet 5/325 1 tablet every 6 hours as needed for pain #6 dispensed to her pharmacy. Patient may resume her usual medications. She was given activity restrictions. She also was instructed in the use of the leg bag and how to care for her catheter. Home Meds and New Rx's Prescriptions: No Action multivitamin [Multi-Day] 1 EACH tablet 1 ea PO DAILY calcium carbonate [Calcium 500] 500 MG tablet 500 mg PO DAILY valacyclovir [Valtrex] 500 MG tablet 500 mg PO BID PRNQty: 6 lorazepam 1 mg tablet 1 mg PO DAILY PRN sertraline 100 mg tablet 100 mg PO DAILY atorvastatin 40 mg tablet 40 mg PO DAILY omeprazole 20 mg capsule,delayed release(DR/EC) 20 mg PO DAILY levothyroxine 88 mcg tablet 100 mcg PO DAILY Discharge Instructions Additional Instructions: Keep your appointment with Dr. Magana on 07/27/2022 at 340 in the [facility] Stand Alone Forms: DSU Post Broommaker SurgeryW/Incision Activity:: Activity as Tolerated Equipment/Supplies:: Romano catheter with leg b Diet:: As Tolerated Discharge Orders Discharge Orders: Discharge Order (Routine); Ordered 07/20/22 Ordered By: Ev Magana DS: Summary Time Spent with Patient providing and/or coordinating discharge services: Greater than 30 minutes Status at Discharge Functional status at discharge: independent ambulation Overall status at discharge: patient is progressing back to baseline Mental Status: mental status grossly normal Speech and Movement: speech and movement normal Mood: congruent mood Affect: normal affect Exam Narrative Exam Narrative: Brisk urinary output via Romano catheter Const General: cooperative and comfortable Nutritional Appearance: obese Orientation: alert, awake and oriented x3 Neck Neck: normal visual inspection Resp Effort & Inspection: normal respiratory effort Auscultation: clear to auscultation bilaterally Cardio Rate: regular rate Rhythm: regular rhythm GI Inspection: normal to inspection, non-distended and incision (Steri-Strips intact incisions covered with Band-Aids) Palpation: soft and nontender Auscultation: normal bowel sounds Rectal Exam - female: deferred General: deferred Other: Romano catheter to gravity drainage. Blue-tinged urine in the Romano catheter bag. Back/Spine/Pelvis Back: no CVA tenderness, No erythema and No ecchymosis Skin General skin exam: no rashes or lesions noted Neuro Cognition: normal cognition Speech: speech normal Sensory Exam: no sensory deficits noted Extrem General: normal to inspection and full ROM (SCDs in place and operational) Psych Appearance: grossly normal Mental Status: mental status grossly normal Speech and Movement: speech and movement normal Mood: congruent mood Affect: normal affect Attitude: cooperative Thought Process: normal Thought Content: normal Insight: insight good Judgment: judgment good DS: Data Vitals/I&O Vitals and I&O: Vital Signs Temperature 97.7 F 07/20/22 09:20 Temperature Source Temporal Artery Scan 07/20/22 09:20 Pulse 92 H 07/20/22 12:14 Pulse Rhythm Regular 07/19/22 08:00 Pulse 91 H 07/20/22 12:30 Respiratory Rate 19 07/20/22 12:30 Respiratory Effort 07/20/22 09:20 Respiratory Depth Normal 07/20/22 09:20 Respiratory Pattern Normal 07/20/22 09:20 Blood Pressure 90/54 L 07/20/22 12:14 Blood Pressure Mean 63 07/20/22 12:14 Blood Pressure Position Supine 07/20/22 09:20 Pulse Oximetry 96 07/20/22 09:20 Respiratory End-tidal CO2 45 07/19/22 16:20 Oxygen Delivery Method Room Air 07/20/22 09:20 Oxygen Flow Rate 0 07/20/22 09:20 Pain Level 8 07/20/22 13:11 Intake & Output 07/19/22 07/20/22 07/20/22 23:59 11:59 23:59 Intake Total 2135.732 / 2186.942 2336.633 / 2336.633 0 / 2336.633 Output Total 1100 / 1400 1400 / 1400 Balance 1035.732 / 786.942 936.633 / 936.633 0 / 936.633 Weight 179 lb 10.828 oz 195 lb 15.855 oz Intake: IV 2135.732 / 2186.942 2086.633 / 2086.633 0 / 2086.633 Oral 250 / 250 Output: Urine 950 / 1250 1400 / 1400 Estimated Blood Loss 150 / 150 Other: Urine Color Green Pale Indigo Yellow Green Urine Appearance Clear Clear Comment Urine blue/green color related to methylene blue dye Urine blue/green color related to methylene blue dye Emesis Description None Data Completed and Pending Pending studies at discharge: Pathology report on uterus cervix tubes and ovaries Labs on day of discharge: Labs from last 24 hours 07/20/22 07/20/22 05:25 05:25 WBC 12.14 H RBC 3.57 L Hgb 10.2 L D Hct 32.9 L MCV 92 MCH 28.6 MCHC 31.0 L RDW 13.3 Plt Count 166 MPV 11.9 H Sodium 140 Potassium 4.1 Chloride 105 Carbon Dioxide 28.2 Anion Gap 6.8 BUN 13 Creatinine 0.7 Est GFR (CKD-EPI 2020) 101.44 Glucose 92 Calcium 8.9 Total Bilirubin 0.3 AST 17 ALT 14 Alkaline Phosphatase 80 Total Protein 6.0 L Albumin 3.1 L PFSH All Active Problems History of cystostomy (Acute) 07/19/2022. Repaired at time of [facility] H/O rectocele repair (Acute) 07/19/2022 H/O bilateral salpingo-oophorectomy (Acute) 06/2022. At time of [facility] History of laparoscopic-assisted vaginal hysterectomy (Acute) 07/19/2022. Hyperlipidemia (Acute) Hypothyroidism (Chronic) Depression (Chronic) History of postmenopausal bleeding (Acute) 2014. Nl EMBx. 2021. Pending u/s results. Pelvic organ prolapse quantification stage 3 rectocele (Acute) Screening for colorectal cancer (Acute) Medical History Acid reflux Anxiety BMI 36.0-36.9,adult Dyslipidemia Fat necrosis of breast Fatigue LEOPOLDO (generalized anxiety disorder) Herpes labialis Hyperglycemia Hyperlipidemia Hypothyroidism Left leg pain Obesity Posterior vitreous detachment of left eye Tongue lesion Surgical History No significant past surgical history Family History Other Diabetes Hyperlipidemia Personal history of malignant neoplasm Social History (Updated 06/20/22 @ 19:21 by Ev Magana MD) Smoking/Tobacco Use Status: Never Smoking risk assessment performed?: Yes Alcohol Intake: current Alcohol Intake frequency: holidays/special occasions only Drug use: Never Substance use type: does not use Household members: spouse and other Details: jordyn. Retired [employer]. 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 Sexually active: Yes Do you feel safe at home: Yes Do you feel safe in your relationship?: Yes Female Reproductive History Menstrual Menopause type: natural (48yo) History History 2 Para 2 Hx # Term Pregnancies 2 Multiple births Hx # Pregnancies Ectopic pregnancies AB induced Hx Number of Living Children 2 AB spontaneous Time Spent with Patient Time Spent with Patient: <45 minutes Time was spent: preparing to see the patient(eg.review tests), obtaining and/or reviewing separately [facility], ordering medications,tests, procedures and referring, communicating with other health pet care worker
--- NOTE | 2022-07-20 14:09 | CMDISCH_ITS ---
- If Service Date Differs Date of service: 07/20/22 Time of Service: 14:09 LACE Index Scoring Tool - Questions: Length of Stay (in days): 1 Acuity (Admit via E.D.?): No E.D. Visits: 0 - Answers: Total Score: 1 Risk of Readmission: Low Risk Care Management Discharge Reason for Hospitalization: lavh, bso, bladder cystostomy Discharge Plan: Emily is discharged home with no new services. She will follow up with community providers and discharge plan of care as prescribed. Sanjuana chaney has a follow up appointment with Dr. Ruiz at [facility] on 07/27/22, as scheduled. Patient/Family Education Needs: Review discharge instructions, limitations and plan to follow up with community providers. Discuss as me three.
== END 2022-07-20 14:45 | disposition home or self-care (01) ==
LOC: ICU 16:37
PROVIDERS: Admitting Provider Obstetrics & Gynecology Gynecology; PCP Nurse Practitioner Family; Visit Provider Obstetrics & Gynecology Gynecology
PROC: 0UT9FZZ Resection of Uterus, Via Natural or Artificial Opening With Percutaneous Endoscopic Assistance (ICD-10-PCS; CPT 58552; principal; 2022-07-19 09:15)
PROC: (CPT 57260; 2022-07-19 09:15)
DX: N95.0 Postmenopausal bleeding (principal); N81.2 Incomplete uterovaginal prolapse; E03.9 Hypothyroidism, unspecified; F32.A Depression, unspecified; E78.5 Hyperlipidemia, unspecified; K21.9 Gastro-esophageal reflux disease without esophagitis; F41.1 Generalized anxiety disorder; E66.9 Obesity, unspecified; Z68.37 Body mass index [BMI] 37.0-37.9, adult; N99.71 Accidental puncture and laceration of a genitourinary system organ or structure during a genitourinary system procedure; Y65.8 Other specified misadventures during surgical and medical care; Y92.234 Operating room of hospital as the place of occurrence of the external cause; Z20.822 Contact with and (suspected) exposure to COVID-19
CPT/HCPCS: 58552; 57268; 57250; 51860; 52000; 36415; 80053; 85027; 87635; 88305; 96361; 96365; 96366; 96375; 74018; 74178; 88307; G0378; J0131; J0690; J1100; J1200; J1885; J2250; J2370; J2405; J2704; J3010; J3490

== ENCOUNTER → 2023-01-30 01:46 | Outpatient (CLI) | payer OTHER, SELFPAY ==
--- NOTE | 2023-01-30 15:50 | DI.MAMMO_ITS ---
Exam(s) MAMMO SCREENING EXAM: MAMMO SCREENING CLINICAL HISTORY: SCREENING, Z12.39 TECHNIQUE: Mammograms were interpreted according to the usual protocol including computer analysis w [employer] CAD system, tomosynthesis and C-view imaging. COMPARISON: [id number] FINDINGS: The breasts are composed of mainly fatty density , Breast Density category A. No suspicious masses or suspicious microcalcifications are seen. No skin thickening or abnormal axillary lymph nodes are seen. There has been no significant change from prior exams. IMPRESSION: BI-RADS Category 1, Negative mammogram Yearly screening mammography is recommended. Breast Density - Category A, fatty density. A negative radiographic report should not delay biopsy if a dominant or clinically suspicious mass is present. Up to ten percent of cancers are not identified on mammography. A negative report may reinforce clinical impression. Adenosis and dense breasts may obscure an underlying neoplasm. False positive reports average 6 to 10%. Patient will receive a letter notifying them of these results.
== END ==
PROVIDERS: PCP Nurse Practitioner Family; Visit Provider Nurse Practitioner Family
DX: Z12.31 Encounter for screening mammogram for malignant neoplasm of breast (principal)
CPT/HCPCS: 77063; 77067

== ENCOUNTER 2023-05-04 09:58 | Outpatient (REF) | payer OTHER, SELFPAY ==
[2023-05-04 18:46] LABS: HCT 41.3 % (36.0-46.0); HGB 13.3 g/dL (11.2-15.7); MCH 28.5 pg (27.0-33.0); MCHC 32.2 % (32.0-36.0); MCV 89 fL (80-95); MPV 11.7 fL (8.0-11.0); Platelet Count 218 10^3/uL (130-400); RBC 4.66 10^6/uL (3.93-5.22); RDW 12.9 % (11.7-14.6)
[2023-05-04 18:49] LABS: ALT 23 U/L (14-59); AST 26 U/L (15-37); Alkaline Phosphatase 117 U/L (46-116); Anion Gap 8.6 mmol/L (3-11); BUN 16 mg/dL (7-18); Bilirubin, Total 0.6 mg/dL (0.2-1.0); CO2 27.4 mmol/L (21.0-32.0); CREATININE 0.8 mg/dL (0.55-1.02); Calcium 10.1 mg/dL (8.5-10.1); Chloride 100 mmol/L (98-107); Estimated GFR 85.89 (mL/min/1.73m2); Glucose 101 mg/dL (74-106); Potassium 4.4 mmol/L (3.5-5.1); Sodium 136 mmol/L (136-145); TSH (W/Ref FT4) 0.91 uIU/mL (0.36-3.74); Total Protein 8.1 g/dL (6.4-8.2)
== END 2023-05-04 09:59 ==
LOC: NCHCN 09:58
PROVIDERS: PCP Nurse Practitioner Family; Visit Provider Nurse Practitioner Family
DX: R53.83 Other fatigue (principal)
CPT/HCPCS: 80053; 85027; 84443

== ENCOUNTER 2023-11-01 14:28 | Outpatient (REF) | payer OTHER, SELFPAY ==
[2023-10-31 21:09] LABS: BUN 18 mg/dL (7-18); CREATININE 0.8 mg/dL (0.55-1.02); Calcium 9.6 mg/dL (8.5-10.1); Chloride 103 mmol/L (98-107); Estimated GFR 85.35 (mL/min/1.73m2); Glucose 97 mg/dL (74-106); Hemoglobin A1C 5.7 % (<5.7); Potassium 4.5 mmol/L (3.5-5.1); Sodium 139 mmol/L (136-145); TSH 1.67 uIU/Ml (0.36-3.74)
== END 2023-11-01 14:29 | disposition home or self-care (01) ==
LOC: NCHCN 14:28
PROVIDERS: PCP Nurse Practitioner Family; Visit Provider Nurse Practitioner Family
DX: E03.9 Hypothyroidism, unspecified (principal); K21.9 Gastro-esophageal reflux disease without esophagitis; Z68.36 Body mass index [BMI] 36.0-36.9, adult
CPT/HCPCS: 80048; 83036; 84439; 84443

== ENCOUNTER 2024-01-14 16:37 | Outpatient (REF) | payer OTHER, SELFPAY ==
[2024-01-14 16:12] LABS: Abs Immature Grans 0.03 10^3/uL (0.0-0.06); Absolute Basophil Count 0.03 10^3/uL (0.0-0.2); Absolute Eosinophil Count 0.17 10^3/uL (0.0-0.7); Absolute Lymphocyte Count 2.05 10^3/uL (1.2-3.4); Absolute Monocyte Count 0.55 10^3/uL (0.1-0.8); Absolute Neutrophil Count 5.01 10^3/uL (1.2-6.7); Basophils % 0.4 %; Eosinophils % 2.2 %; HCT 40.1 % (36.0-46.0); Immature Grans % 0.4 %; Lymphocytes % 26.1 %; MCH 29.5 pg (27.0-33.0); MCHC 32.4 % (32.0-36.0); MCV 91 fL (80-95); Neutrophils % 63.9 %; Platelet Count 189 10^3/uL (130-400); RDW-SD 43.7 fL; WBC 7.84 10^3/uL (4.4-10.8)
[2024-01-14 16:30] LABS: ALT 25 U/L (14-59); AST 22 U/L (15-37); Alkaline Phosphatase 112 U/L (46-116); Anion Gap 9.2 mmol/L (3-11); BUN 13 mg/dL (7-18); Bilirubin, Total 0.59 mg/dL (0.2-1.0); C-Reactive Protein 4.33 mg/dL (<or=0.5); CO2 28.8 mmol/L (21.0-32.0); CREATININE 0.8 mg/dL (0.55-1.02); Calcium 9.5 mg/dL (8.5-10.1); Chloride 105 mmol/L (98-107); Estimated GFR 85.35 (mL/min/1.73m2); Glucose 91 mg/dL (74-106); Potassium 4.4 mmol/L (3.5-5.1); Sodium 143 mmol/L (136-145); Total Protein 7.3 g/dL (6.4-8.2)
== END 2024-01-14 16:38 | disposition home or self-care (01) ==
LOC: LBN 16:37
PROVIDERS: Visit Provider Nurse Practitioner Family
DX: R10.30 Lower abdominal pain, unspecified (principal); R79.82 Elevated C-reactive protein (CRP)
CPT/HCPCS: 80053; 85025; 86140

== ENCOUNTER 2024-01-15 13:22 | Outpatient (REF) | payer OTHER, SELFPAY ==
[2024-01-16 10:40] LABS: Campylobacter PCR Negative (Negative); Salmonella PCR Negative (Negative); Shiga Toxin PCR Negative (Negative); Shigella/Enteroinvasive Ecoli Negative (Negative)
== END 2024-01-15 13:23 | disposition home or self-care (01) ==
LOC: LBN 13:22
PROVIDERS: Visit Provider Nurse Practitioner Family
DX: K52.9 Noninfective gastroenteritis and colitis, unspecified (principal)
CPT/HCPCS: 87329; 87505; 87177

== ENCOUNTER 2024-01-19 10:04 | Outpatient (REF) | payer OTHER, SELFPAY ==
--- OUTSIDE RECORDS SUMMARY | 2024-01-19 10:06 | XMS_ITS | Encounter Summary ---
Author Organization [facility] Address [address] [place] [address] Care Team Providers Care Shellfish Farming Supervisor Name Role Phone Unavailable Primary Care Provider Unavailabl e Encounter Details Date Type Department Care Team (Late st Contact Info) Description 03/21/2006 Results Only [facility] - Maple conversion [address] [place] [address] Aleksandra Swann, CAUSTIC PREPARER Social History Tobacco Use Types Packs/Day Years Used Date Smoking Tobacco: Never Assessed Sex and Gender Information Value Date Recorded Sex Assigned at Not on file Gender Identity Not on file Sexual Orientation Not on file documented as of this encounter Plan of Treatment Not on file documented as of this encounter Procedures Procedure Name Priority Date/Time Associated Diagnosis Comments CYTOPATHOLOGY Routine 03/21/2006 0:00 EDT documented in this encounter Results * CYTOPATHOLOGY (03/21/2006 0:00 EDT) Pathology Report: CYTOPATHOLOGY REPORT Reports generated via electronic interface contain original data; however they are lacking the format of the original report. Caution should be taken when reading/interpreti ng unformatted reports. Name: ? EMILY CARLIN ? Accession #: ? [id number] : ? 1965 (Age: 40) ??F ?Collect Date: ? 03/21/2006 Location: ? [facility] ? Receive Date: ? 03/22/2006 Provider: ?ALEKSANDRA SWANN CAUSTIC PREPARER Copy to: ? Specimen/Source: ?ThinPrep Pap Test, Cervix/Endocervix, processed on [employer] ThinPrep Imaging System, with manual evaluation Last Menstrual Period: ? 03/11/06 Hormonal/Contracep tive Status: ? Oral contraceptives Previous Gynecologic Pathology: ? ALLIE: 1990 Treatment History: ? Colposcopy: 1990 Cryotherapy: 1990, paps neg. since Other: ? HPVA - HPV testing requested if ASC-US on the current ThinPrep Pap test. ? SPECIMEN ADEQUACY ? Satisfactory for Evaluation - transformation zone component present GENERAL CATEGORIZATION ? Negative for Intraepithelial Lesion or Malignancy ? Document reviewed and electronically signed by: ? TONYA Cisneros(ASCP) ? Report Date: ??03/27/2006 15:18 End of Report [facility] 03/21/2006 03/22/2006 Aleksandra Swann NP PATHOLOGY ORDERABLES Performing Organization Address City/State/[facility] Co de Phone Number T[facility] ANGLIN [address] [place] [address] documented in this encounter Visit Diagnoses Not on filedocumented in this encounter
--- OUTSIDE RECORDS SUMMARY | 2024-01-19 10:06 | XMS_ITS | Encounter Summary ---
Author Organization [facility] Address [address] [place] [address] Care Team Providers Care Illustrator Set Name Role Phone Unknown, Provider Primary Care Provider [phone] Encounter Details Date Type Department Care Team (Late st Contact Info) Description 03/18/2015 Results Only [facility] [phone] Myrna Hooks MD [address] [place] [address] [place] [address] Social History Tobacco Use Types Packs/Day Years Used Date Smoking Tobacco: Never Assessed Sex and Gender Information Value Date Recorded Sex Assigned at Not on file Gender Identity Not on file Sexual Orientation Not on file documented as of this encounter Plan of Treatment Not on file documented as of this encounter Procedures Procedure Name Priority Date/Time Associated Diagnosis Comments SURGICAL PATHOLOGY Routine 03/18/2015 8:51 EDT documented in this encounter Results * SURGICAL PATHOLOGY (03/18/2015 8:51 EDT) Pathology Report: SURGICAL PATHOLOGY REPORT Reports generated via electronic interface contain original data; however they are lacking the format of the original report. Caution should be taken when reading/interpret ing unformatted reports. Name: ? EMILY MICHAEL ? Accession #: ? [id number] ? : ? 1965 (Age: 49) ??F ? Collect Date: ? 03/18/2015 ? Location: ? [facility] ? Receive Date: ? 03/19/2015 ? Provider: MYRNA HOOKS MD Copy to: THOMAS BOLTON MD ? Final Pathologic Diagnosis: ENDOMETRIUM, BIOPSY: - ??Superficial strips of inactive endometrium with tubal metaplasia, negative for hyperplasia or neoplasia. - ??Fragments of benign endocervix. Document reviewed and electronically signed by: MG BOLTON MD Report ??Date: 03/23/2015 17:16 By the signature above, the attending physician certifies that he/she has personally conducted a gross and/or microscopic examination of the described specimens and rendered or confirmed the above diagnosis. Specimen(s) Received: Endometrial bx Clinical History: PMB; 13 months since LMP Gross Description: ? Received in formalin labelled with proper patient identification (initials U, M) and endometrial is an aggregate of stone-brown membranous tissue (1.1 x 0.5 x 0.3 cm). The specimen is submitted entirely in 03/19/2015 11:27 AM End of Report [facility] 03/18/2015 8:51 EDT 03/19/2015 8:51 EDT Myrna Hooks MD PATHOLOGY ORDERABLES [facility] [address] [place] [address] documented in this encounter Visit Diagnoses Not on filedocumented in this encounter Care Teams Illustrator Set Relationship Specialty Start Date End Date Unknown, Provider, PCP - General 03/26/12 03/21/15 documented as of this encounter
--- OUTSIDE RECORDS SUMMARY | 2024-01-19 10:06 | XMS_ITS | Clinical Summary ---
Author Organization [facility] Address [address] [place] [address] Care Team Providers Care Emergency Preparedness Manager Name Role Phone Gui Purvis MD Primary Care Provider [phone] Encounters Date Type Department Care Team Description 01/15/2024 Lab Requisition [facility] Pathology & Laboratory Medicine - [facility] [address] [place] [address] Outr Resulting Lab, Provider from Last 3 Months Social History Tobacco Use Types Packs/Day Years Used Date Smoking Tobacco: Never Assessed Sex and Gender Information Value Date Recorded Sex Assigned at Not on file Gender Identity Not on file Sexual Orientation Not on file Plan of Treatment Health Maintenance Due Date Last Done Comments Hepatitis B Vaccine (1 of 3 - 19+ 3-dose series) 07/28 COVID-19 Vaccine (2022- season) 2023 Hepatitis C Screen Completed 10/21/2020 Procedures Procedure Name Priority Date/Time Associated Diagnosis Comments FECAL BACTERIAL PATHOGENS BY PCR Routine 01/15/2024 12:00 EDT HEPATITIS C AB W REFLEX TO HCV RNA BY PCR Routine 10/21/2020 9:25 EDT from Last 3 Months or Most Recently Relevant to Health Maintenance Results * FECAL BACTERIAL PATHOGENS BY PCR (01/15/2024 12:00 EDT) Salmonella PCR Negative Negative 01/16/2024 10:34 EDT [facility] Shigella/Enteroin vasive E. coli Negative Negative 01/16/2024 10:34 EDT [facility] HN LAB CAMPYLOBACTER PCR Negative Negative 01/16/2024 10:34 EDT [facility] Shiga Toxin PCR Negative Negative 10:34 EDT [facility] Feces SPECIMEN FROM RECTUM / Unknown 01/15/2024 12:00 EDT 01/15/2024 21:45 EDT Provider Outr Resulting Lab MICROBIOLOGY - GENERAL ORDERABLES [facility] [address] [place] [address] * HEPATITIS C AB W REFLEX TO HCV RNA BY PCR (10/21/2020 9:25 EDT) Hep C Antibody Negative Negative 10/22/2020 12:02 EDT [facility] Blood VENOUS BLOOD / Unknown 10/21/2020 9:25 EDT 10/21/2020 20:41 EDT Provider Outr Resulting Lab CHEMISTRY & BLOOD GAS ORDERABLES [facility] [address] [place] [address] from Last 3 Months or Most Recently Relevant to Health Maintenance Care Teams Emergency Preparedness Manager Relationship Specialty Start Date End Date Gui Purvis MD PCP - General 03/22/15
--- OUTSIDE RECORDS SUMMARY | 2024-01-19 10:06 | XMS_ITS | Encounter Summary ---
Author Organization [facility] Address [address] [place] [address] Care Team Providers Care Sterilizer Operator Name Role Phone Unknown, Provider Primary Care Provider [phone] Encounter Details Date Type Department Care Team (Latest Contact Info) Description 03/18/2015 10:35 EDT - 03/18/2015 23:59 EDT Hospital Encounter [address] [address] Unknown, Provider, Discharge Disposition: Home or Self Care Social History Tobacco Use Types Packs/Day Years Used Date Smoking Tobacco: Never Assessed Sex and Gender Information Value Date Recorded Sex Assigned at Not on file Gender Identity Not on file Sexual Orientation Not on file documented as of this encounter Discharge Disposition Disposition Code Departure Means Destination Home or Self Long-Term documented in this encounter Plan of Treatment Not on file documented as of this encounter Visit Diagnoses Not on filedocumented in this encounter Care Teams Sterilizer Operator Relationship Specialty Start Date End Date Unknown, Provider, PCP - General 03/26/12 03/21/15 documented as of this encounter
--- OUTSIDE RECORDS SUMMARY | 2024-01-19 10:06 | XMS_ITS | Encounter Summary ---
Author Organization [facility] Address [address] [place] [address] Care Team Providers Care Moving Van Driver Name Role Phone Unavailable Primary Care Provider Unavailabl e Encounter Details Date Type Department Care Team (Late st Contact Info) Description 08/14/2001 Results Only [facility] - Maple conversion [address] [place] [address] Aleksandra Swann, AIR TOOL OPERATOR Social History Tobacco Use Types Packs/Day Years Used Date Smoking Tobacco: Never Assessed Sex and Gender Information Value Date Recorded Sex Assigned at Not on file Gender Identity Not on file Sexual Orientation Not on file documented as of this encounter Plan of Treatment Not on file documented as of this encounter Procedures Procedure Name Priority Date/Time Associated Diagnosis Comments CYTOPATHOLOGY Routine 08/14/2001 0:00 EST documented in this encounter Results * CYTOPATHOLOGY (08/14/2001 0:00 EST) Pathology Report: CYTOPATHOLOGY REPORT Reports generated via electronic interface contain original data; however they are lacking the format of the original report. Caution should be taken when reading/interpreti ng unformatted reports. Name: ? EMILY CARLIN ? Accession #: ? [id number] : ? 1965 (Age: 36) ??F ?Collect Date: ? 08/14/2001 Location: ? [facility] ? Receive Date: ? 08/15/2001 Provider: ?ALEKSANDRA SWANN AIR TOOL OPERATOR Copy to: ? Specimen/Source: ?ThinPrep Pap Test, Cervix/Endocervix Last Menstrual Period: ? 07/25/01 Previous Gynecologic Pathology: ? ALLIE: 1990 Treatment History: ? Colposcopy: Warts Cryotherapy: Paps WNL limits since ? SPECIMEN ADEQUACY ? Satisfactory for Evaluation - transformation zone component present GENERAL CATEGORIZATION ? Negative for Intraepithelial Lesion or Malignancy ? Document reviewed and electronically signed by: ? Mikie Fairbanks, [place](ASCP) ? Report Date: ??08/19/2001 15:11 End of Report [facility] 08/14/2001 08/15/2001 Aleksandra Swann NP PATHOLOGY ORDERABLES [facility] [address] [place] [address] documented in this encounter Visit Diagnoses Not on filedocumented in this encounter
--- OUTSIDE RECORDS SUMMARY | 2024-01-19 10:06 | XMS_ITS | Encounter Summary ---
Author Organization [facility] Address [address] [place] [address] Care Team Providers Care Car Wash Attendant Name Role Phone Unavailable Primary Care Provider Unavailabl e Encounter Details Date Type Department Care Team (Late st Contact Info) Description 07/07/1999 Results Only [facility] [address] [place] [address] Aleksandra Swann, INSPECTING SUPERVISOR Social History Tobacco Use Types Packs/Day Years Used Date Smoking Tobacco: Never Assessed Sex and Gender Information Value Date Recorded Sex Assigned at Not on file Gender Identity Not on file Sexual Orientation Not on file documented as of this encounter Plan of Treatment Not on file documented as of this encounter Procedures Procedure Name Priority Date/Time Associated Diagnosis Comments CYTOPATHOLOGY Routine 07/07/1999 11:49 EST documented in this encounter Results * CYTOPATHOLOGY (07/07/1999 11:49 EST) Pathology Report: CYTOPATHOLOGY REPORT Reports generated via electronic interface contain original data; however they are lacking the format of the original report. Caution should be taken when reading/interpreti ng unformatted reports. Name: ? EMILY CARLIN ? Accession #: ? [id number] : ? 1965 (Age: 33) ??F ?Collect Date: ? 07/07/1999 Location: ?Receive Date: ? 07/07/1999 Provider: ?ALEKSANDRA SWANN NP Copy to: ?ALEKSANDRA SWANN INSPECTING SUPERVISOR ? Specimen/Source: ?Dye Padder Operator ThinPrep Last Menstrual Period: ? GYNECOLOGIC ??CYTOPATHOLOGY ??REPORT Name: EMILY CARLIN ?[facility] : 1965 ?? 33Y F ?Client ID: [id number] SS#: [id number] ? Clinician: ALFONSO WAYNE, SYBIL ?? Location: [facility] ??Copy to: ?? Specimen: ?Dye Padder Operator ThinPrep ? Source: Cervix/Endocervix ?Collected: 07/06/99 ? Received: 07/07/1999 ?LMP: 06/23/99 ? Hormone Therapy: No ? : No ? Radiation Therapy: No ?? Post : No ?Chemotherapy: No ?IUD: No ? Prev Abnormal Pap: No ?? 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 Colpo, biopsy warts, Cryo. Paps ? WNL since. ?(Blank henderson indicate information not provided on requisition) SPECIMEN ADEQUACY: ? Satisfactory For Evaluation ?? GENERAL CATEGORIZATION: ? WITHIN NORMAL LIMITS ? Reviewed And Electronically Signed By: ? Tatyana Metzger, CT(ASCP) ? Report Date: ?? 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 Colpo, biopsy warts, Cryo. Paps WNL since. ? Document reviewed and electronically signed by: ? Conversion ? Report Date: ??07/07/1999 00:00 End of Report [facility] 07/07/1999 11:4 9 EST 07/07/1999 11:50 EST Aleksandra Swann INSPECTING SUPERVISOR PATHOLOGY ORDERABLES Performing Organization Address City/State/[facility] Co de Phone Number [facility] [address] [place] [address] documented in this encounter Visit Diagnoses Not on filedocumented in this encounter
--- OUTSIDE RECORDS SUMMARY | 2024-01-19 10:06 | XMS_ITS | Encounter Summary ---
Author Organization [facility] Address [address] [place] [address] Care Team Providers Care Holiday Detector Operator Name Role Phone Unavailable Primary Care Provider Unavailabl e Encounter Details Date Type Department Care Team (Late st Contact Info) Description 04/10/2007 Results Only [facility] - [facility] [address] [place] [address] Aleksandra Swann, SENIOR SCIENCE CONSULTANT Social History Tobacco Use Types Packs/Day Years Used Date Smoking Tobacco: Never Assessed Sex and Gender Information Value Date Recorded Sex Assigned at Not on file Gender Identity Not on file Sexual Orientation Not on file documented as of this encounter Plan of Treatment Not on file documented as of this encounter Procedures Procedure Name Priority Date/Time Associated Diagnosis Comments CYTOPATHOLOGY Routine 04/10/2007 0:00 EDT documented in this encounter Results * CYTOPATHOLOGY (04/10/2007 0:00 EDT) Pathology Report: CYTOPATHOLOGY REPORT Reports generated via electronic interface contain original data; however they are lacking the format of the original report. Caution should be taken when reading/interpreti ng unformatted reports. Name: ? EMILY CARLIN ? Accession #: ? [id number] : ? 1965 (Age: 41) ??F ?Collect Date: ? 04/10/2007 Location: ? [facility] ? Receive Date: ? 04/11/2007 Provider: ?ALEKSANDRA SWANN SENIOR SCIENCE CONSULTANT Copy to: ? Specimen/Source: ?ThinPrep Pap Test, Cervix/Endocervix, processed on [email or web address] ThinPrep Imaging System, with manual evaluation Last Menstrual Period: ? 03/16/07 Hormonal/Contracep tive Status: ? Intrauterine device: Paraguard Previous Gynecologic Pathology: ? ALLIE: 1990 Treatment History: ? Colposcopy: 1990 Cryotherapy: 1990, paps negative since Other: ? HPVA - HPV testing requested if ASC-US on the current ThinPrep Pap test. ? SPECIMEN ADEQUACY ? Satisfactory for Evaluation - transformation zone component present GENERAL CATEGORIZATION ? Negative for Intraepithelial Lesion or Malignancy ? Document reviewed and electronically signed by: ? CRISTHIAN Ferrera(ASCP) ? Report Date: ??04/16/2007 16:22 End of Report [facility] 04/10/2007 04/11/2007 Aleksandra Swann NP PATHOLOGY ORDERABLES Performing Organization Address City/State/[facility] Co de Phone Number [facility] [address] [place] [address] documented in this encounter Visit Diagnoses Not on filedocumented in this encounter
--- OUTSIDE RECORDS SUMMARY | 2024-01-19 10:06 | XMS_ITS | Encounter Summary ---
Author Organization [facility] Address [address] [place] [address] Care Team Providers Care Board Turner Name Role Phone Unavailable Primary Care Provider Unavailabl e Encounter Details Date Type Department Care Team (Late st Contact Info) Description 10/07/2008 Orders Only [facility] Laboratory Services - [facility] [place] [address] [place] [address] [phone] Aleksandra Swann NP Social History Tobacco Use Types Packs/Day Years Used Date Smoking Tobacco: Never Assessed Sex and Gender Information Value Date Recorded Sex Assigned at Not on file Gender Identity Not on file Sexual Orientation Not on file documented as of this encounter Plan of Treatment Not on file documented as of this encounter Procedures Procedure Name Priority Date/Time Associated Diagnosis Comments HPV DETECTION, HIGH RISK TYPES Routine 10/07/2008 20:40 EDT CYTOPATHOLOGY Routine 10/07/2008 0:00 EDT documented in this encounter Results * HUMAN PAPILLOMA VIRUS DNA TEST (10/07/2008 20:40 EDT) Specimen Description Cervix, ThinPrep vial [facility] Result Negative for HPV types 16, 18, 31, 33, 35, 39, 45, 51, 52, 56, 58, 59, and 68. [facility] Report Status Final 10/20/2008 [facility] 10/07/2008 20:4 0 EDT 10/14/2008 7:27 EDT Aleksandra Swann NP MICROBIOLOGY - GENER AL ORDERABLES [facility] [address] [place] [address] * CYTOPATHOLOGY (10/07/2008 0:00 EDT) Pathology Report: CYTOPATHOLOGY REPORT ? Reports generated via electronic interface contain original data; ? however they are lacking the format of the original report. ? Caution should be taken when reading/interpreti ng unformatted reports. ? Name: ? EMILY CARLIN ? Accession #: ? [id number] ? : ? 1965 (Age: 43) ??F ?Collect Date: ? 10/07/2008 ? Location: ? [facility] ? Receive Date: ? 10/08/2008 ? Provider: ?ALEKSANDRA M ALFONSO FUNERAL SERVICE APPRENTICE ? Copy to: ? Specimen/Source: ?Pap Test, Cervix/Endocervix, ThinPrep Imaging System ? with manual evaluation ? Last Menstrual Period: ? 4/14/09 ? Hormonal/Contracep tive Status: ? Intrauterine device: patient has Paragard ? Previous Gynecologic Pathology: ? ALLIE: 1991, paps neg since ? Treatment History: ? Colposcopy: 1991 ? Cryotherapy: 1991 ? Other: ? HPVDX - HPV testing requested regardless of diagnosis on current ThinPrep Pap ?? test. ? SPECIMEN ADEQUACY ? Satisfactory for Evaluation ? - transformation zone component present ? - scant squamous epithelial component secondary to excessive blood ? GENERAL CATEGORIZATION ? Negative for Intraepithelial Lesion or Malignancy ? Document reviewed and electronically signed by: ? Julien Stumler, CT(ASCP) ? Report Date: ??10/13/2008 10:29 ? End of Report ? [facility] 10/07/2008 10/08/2008 Aleksandra Swann NP PATHOLOGY ORDERABLES [facility] [address] [place] [address] documented in this encounter Visit Diagnoses Not on filedocumented in this encounter
--- OUTSIDE RECORDS SUMMARY | 2024-01-19 10:06 | XMS_ITS | Encounter Summary ---
Author Organization [facility] Address [facility] [place] [address] Care Team Providers Care Payment Processor Name Role Phone Marcy Schmid APRN Primary Care Provider [phone] Encounter Details Date Type Department Care Team (Latest Contact Info) Description 12/03/2023 Travel Social History Tobacco Use Types Packs/Day Years Used Date Smoking Tobacco: Never Smokeless Tobacco: Never Alcohol Use Standard Drinks/Week Comments Yes 0 (1 standard drink = 0.6 oz pur e alcohol) social Sex and Gender Information Value Date Recorded Sex Assigned at Not on file Gender Identity Not on file Sexual Orientation Not on file documented as of this encounter Plan of Treatment Upcoming Encounters Date Type Department Care Team (Late st Contact Info) Description 04/07/2024 11:00 AM EDT Office Visit Plastic Surgery at [place] [phone] Delroy Tomas MD [facility] [place] [address] 11/05/2024 10:00 AM EDT Office Visit [place] [phone] Myrna Galvez MD [facility] [place] [address] documented as of this encounter Visit Diagnoses Not on filedocumented in this encounter Care Teams Payment Processor Relationship Specialty Start Date End Date Marcy Schmid APRN [address] [place] [address] [place] [address] PCP - General Family Medicine 10/17/23 documented as of this encounter
--- OUTSIDE RECORDS SUMMARY | 2024-01-19 10:06 | XMS_ITS | Encounter Summary ---
Author Organization [facility] Address [address] [place] [address] Care Team Providers Care Asset Protection Specialist Name Role Phone Unavailable Primary Care Provider Unavailabl e Encounter Details Date Type Department Care Team (Late st Contact Info) Description 04/06/2003 Results Only [facility] - [facility] [address] [place] [address] Aleksandra Swann, DICE DEALER Social History Tobacco Use Types Packs/Day Years Used Date Smoking Tobacco: Never Assessed Sex and Gender Information Value Date Recorded Sex Assigned at Not on file Gender Identity Not on file Sexual Orientation Not on file documented as of this encounter Plan of Treatment Not on file documented as of this encounter Procedures Procedure Name Priority Date/Time Associated Diagnosis Comments CYTOPATHOLOGY Routine 04/06/2003 0:00 EDT documented in this encounter Results * CYTOPATHOLOGY (04/06/2003 0:00 EDT) Pathology Report: CYTOPATHOLOGY REPORT Reports generated via electronic interface contain original data; however they are lacking the format of the original report. Caution should be taken when reading/interpreti ng unformatted reports. Name: ? EMILY CARLIN ? Accession #: ? [id number] : ? 1965 (Age: 37) ??F ?Collect Date: ? 04/06/2003 Location: ? [facility] ? Receive Date: ? 04/07/2003 Provider: ?ALEKSANDRA SWANN DICE DEALER Copy to: ? Specimen/Source: ?ThinPrep Pap Test, Cervix/Endocervix Last Menstrual Period: ? 03/25/03 Previous Gynecologic Pathology: ? ALLIE: 1990 Treatment History: ? Colposcopy Cryotherapy ? SPECIMEN ADEQUACY ? Satisfactory for Evaluation - transformation zone component present GENERAL CATEGORIZATION ? Negative for Intraepithelial Lesion or Malignancy ? Document reviewed and electronically signed by: ? CRISTHIAN Cesar(ASCP) ? Report Date: ??04/09/2003 12:28 End of Report [facility] 04/06/2003 04/07/2003 Aleksandra Swann NP PATHOLOGY ORDERABLES [facility] [address] [place] [address] documented in this encounter Visit Diagnoses Not on filedocumented in this encounter
--- OUTSIDE RECORDS SUMMARY | 2024-01-19 10:06 | XMS_ITS | Clinical Summary ---
Author Organization [facility] Address [facility] [place] [address] Care Team Providers Care Tinsmith Helper Name Role Phone Binu Marcy Ordonez APRN Primary Care Provider [phone] Allergies No known active allergies Medications Medication Sig Dispensed Refills Start Date End Date Status sertraline (Zoloft) 100 mg tablet Take 150 mg by mouth daily. Active omeprazole (PriLOSEC) [address] capsule Take 20 mg by mouth daily. Active atorvastatin (Lipitor) 40 mg tablet Take 40 mg by mouth daily. Active LORazepam (Ativan) 1 mg tablet Take 1 mg by mouth every 8 hours as needed for Anxiety. Active Active Problems No known active problems Encounters Date Type Department Care Team Description 12/03/2023 2:00 PM EDT Office Visit Plastic Surgery at [facility] [place] [address] Delroy Tomas MD Macromastia 12/03/2023 Travel from Last 3 Months Family History Medical History Relation Comments Breast Cancer Neg Hx Social History Tobacco Use Types Packs/Day Years Used Date Smoking Tobacco: Never Smokeless Tobacco: Never Tobacco Cessation:Counseling Given: Not Answered Alcohol Use Standard Drinks/Week Comments Yes 0 (1 standard drink = 0.6 oz pur e alcohol) social Sex and Gender Information Value Date Recorded Sex Assigned at Not on file Gender Identity Not on file Sexual Orientation Not on file Last Filed Vital Signs Vital Sign Reading Time Taken Comments Blood Pressure - - Pulse - - Temperature - - Respiratory Rate - - Oxygen Saturation - - Inhaled Oxygen Concentration - - Weight 88.9 kg (196 lb) 12/03/2023 2:03 PM EDT Height 151.4 cm (4' 11.61) 12/03/2023 2:03 PM E DT Body Mass Index 38.79 12/03/2023 2:03 PM EDT Plan of Treatment Upcoming Encounters Date Type Department Care Team (Late st Contact Info) Description 04/07/2024 11:00 AM EDT Office [place] [phone] Delroy Tomas MD [facility] [place] [address] 11/05/2024 10:00 AM EDT Office Visit [place] [phone] Myrna Galvez MD [facility] [address] Health Maintenance Due Date Last Done Comments CT Colonography 1965 Colonoscopy 1965 Colorectal Cancer Screening 1965 FIT DNA 1965 FIT 1965 Sigmoidoscopy (10 year) with FIT yearly 1965 Sigmoidoscopy 1965 HIV screen 1983 Hepatitis C Screening 1983 Hepatitis B vaccine (0-59 yrs) (1) 1984 Tdap adult 1984 Tetanus vaccine 1984 HPV test 1995 PAP Smear 1995 Breast Cancer Share Decision Needed 2005 Breast Cancer screening 2005 Diabetes Screening (HgbA1C or Glucose) 2005 Zoster vaccine (1 of 2) 2015 Advance Directive 2020 Covid-19 Vaccine (2 season) 2023 Influenza (Flu) vaccine (1 o f 1 - Influenza standard series) 02/17/2024 Care Teams Tinsmith Helper Relationship Specialty Start Date End Date Marcy Schmid, SEJAL [facility] [place] [address] PCP - General Family Medicine 10/17/23
--- OUTSIDE RECORDS SUMMARY | 2024-01-19 10:06 | XMS_ITS | Encounter Summary ---
Author Organization [facility] Address [address] [place] [address] Care Team Providers Care Cloth Cutter Name Role Phone Gui Purvis MD Primary Care Provider [phone] Encounter Details Date Type Department Care Team (Late st Contact Info) Description 07/20/2022 Lab Requisition [facility] Pathology & Laboratory Medicine - [facility] [address] [place] [address] Ev Quach MD [address] [place] [address] [address] [place] [address] [phone] Encounter for other general examination Social History Tobacco Use Types Packs/Day Years Used Date Smoking Tobacco: Never Assessed Sex and Gender Information Value Date Recorded Sex Assigned at Not on file Gender Identity Not on file Sexual Orientation Not on file documented as of this encounter Plan of Treatment Not on file documented as of this encounter Procedures Procedure Name Priority Date/Time Associated Diagnosis Comments SURGICAL PATHOLOGY Today 07/19/2022 11 :15 EST Encounter for other general examination documented in this encounter Results * SURGICAL PATHOLOGY (07/19/2022 11:15 EST) Note to Patient The following pathology results have been interpreted by your pathologist and may be available to you before your health provider has had the opportunity to review them. Please allow time for your provider to receive these results and explore management options, if applicable. 07/21/2022 13:57 EST [facility] Final Diagnosis A. UTERUS, CERVIX, FALLOPIAN TUBES, AND OVARIES, HYSTERECTOMY AND BILATERAL SALPINGO-OOPHOREC KALEY: - Endometrium: - Inactive endometrium - Myometrium: - Intramural leiomyoma - Cervix: - Squamous metaplasia with surface erosion - Serosa: - No significant pathologic features. - Fallopian tubes, bilateral: - Paratubal cyst. - Benign fallopian tubes with no significant pathologic features - Ovaries, bilateral: - Cortical inclusion cysts - Lilly-ovarian adhesions. 07/21/2022 13:57 [facility] Attestation There was significant resident/fellow involvement in the diagnostic evaluation of this case. By the signature below, the attending physician certifies that they have personally conducted a gross and/or microscopic examination of the described specimens and rendered or confirmed the above diagnosis. 07/21/2022 13:57 [facility] at 1356 Clinical History Pelvic organ prolapse quantification stage III rectocele 07/21/2022 13:57 [facility] Gross Description A. Received in formalin labelled with proper patient identification (initials U, M) and uterus, cervix, fallopian tubes, ovaries is an intact uterus and cervix (40.5 g, 7.0 cm cervix to fundus x 3.9 cm cornu to cornu x 2.3 cm anterior to posterior) with attached bilateral fallopian tubes (right fallopian tube: 5.0 cm in length X 0.4 cm in diameter, left fallopian tube: 5.4 cm in length X 0.6 cm in diameter) and bilateral ovaries (right ovary: 2.3 x 0.9 x 0.7 cm, left ovary: 2.3 x 0.7 x 0.6 cm). The uterine serosa is stone-espino to espino purple, smooth, and glistening with rare serosal adhesions. The endometrium is stone-pink and somewhat denuded and has a thickness of 0.2 cm. The myometrium is stone-pink, vaguely trabeculated and ranges from 0.7 cm to 1.1 cm in thickness. 1 small myometrial nodule (0.2 x 0.2 x 0.2 cm) is present on the posterior aspect of the uterus and 1 small myometrial nodule of the same size is present on the anterior aspect of the uterus. The ectocervix is stone-white, focally brown, smooth, and glistening, and the endocervix is stone-pink with a vague herringbone pattern. The left and right ovaries have a espino-stone to yellow, smooth, and glistening outer surface and sectioning discloses stone-white, focally yellow cut surface. The left and right fallopian tubes have stone-espino to espino purple, smooth, and glistening serosa and sectioning discloses stone-brown cut surface with a pinpoint lumen throughout. Retail Marketing Manager sections are submitted as follows: BLOCK ABRAHAM A1- anterior cervix A2- anterior full-thickness endomyometrium, fraud representative section including myometrial nodule A3- posterior cervix A4- posterior endomyometrium, fraud representative sections, full-thickness A5- posterior endomyometrium, myometrial nodule A6-A7- longitudinally bisected fimbriated end of right fallopian tube and 2 fraud representative cross sections of fallopian tube and right ovary A8-A9- longitudinally bisected fimbriated end of left fallopian tube and 2 fraud representative cross sections of fallopian tube and left ovary CORNEL ACHARYA MD 07/20/2022 13:58 07/21/2022 13:57 EST [facility] Resident/Costa w: Cornel Acharya MD 07/21/2022 13:57 EST [facility] Performing Lab [facility] 07/21/2022 13:57 EST [facility] Scanned Images 07/21/2022 13:57 EST [facility] Tissue SPECIMEN FROM UTERUS / Unknown 07/19/2022 11:15 EST 07/20/2022 9:07 EST Ev Quach MD PATHOLOGY ORDERABLES [facility] [address] [place] [address] documented in this encounter Visit Diagnoses Diagnosis Encounter for other general examination documented in this encounter Care Teams Cloth Cutter Relationship Specialty Start Date End Date Gui Purvis MD PCP - General 03/22/15 documented as of this encounter
--- OUTSIDE RECORDS SUMMARY | 2024-01-19 10:06 | XMS_ITS | Encounter Summary ---
Author Organization [facility] Address [address] [place] [address] Care Team Providers Care Image Editor Name Role Phone Unknown, Provider Primary Care Provider Encounter Details Date Type Department Care Team (Late st Contact Info) Description 12/22/2014 Results Only [facility] [phone] Sadaf Barron APRN [address] [place], [place] [phone] Social History Tobacco Use Types Packs/Day Years Used Date Smoking Tobacco: Never Assessed Sex and Gender Information Value Date Recorded Sex Assigned at Not on file Gender Identity Not on file Sexual Orientation Not on file documented as of this encounter Plan of Treatment Not on file documented as of this encounter Procedures Procedure Name Priority Date/Time Associated Diagnosis Comments PAP TEST- RESULT ONLY Routine 12/22/2014 0:00 EDT documented in this encounter Results * PAP TEST- RESULT ONLY (12/22/2014 0:00 EDT) Pathology Report: CYTOPATHOLOGY REPORT Reports generated via electronic interface contain original data; however they are lacking the format of the original report. Caution should be taken when reading/interpreti ng unformatted reports. Name: ? EMILY MICHAEL ? Accession #: ? [id number] ? : ? 1965 (Age: 49) ??F ?Collect Date: ? 12/22/2014 ? Location: ? [facility] ? Receive Date: ? 12/23/2014 ? Provider: SADAF BARRON APRN Copy to: ? Final Report SPECIMEN ADEQUACY ? Satisfactory for Evaluation - transformation zone component present GENERAL CATEGORIZATION ? Negative for Intraepithelial Lesion or Malignancy ?? Last Menstrual Period: Age 2014 Specimen/Source: ??Pap Test, Cervix/Endocervix, ThinPrep Imaging System with manual evaluation Document reviewed and electronically signed by: ? Bina Neff, CT(ASCP)(IAC) ? Report ??Date: 12/30/2014 16:07 HPV with Pap Test ? Date Ordered: ? 12/30/2014 ? Status: ?? Signed Out ?Date Complete: ? 01/01/2015 ? By: ??System Interface ? Date Reported: ? 01/01/2015 ? Interpretation RESULT: Negative for HPV. No E6 or E7 mRNA is detected from HPV types 16,18,31,33,35, 39,45,51,52,56,58, 59,66, and 68 by nurse practitioner adult mediated amplification. Comments Document reviewed and electronically signed by: ? System Interface ? Report date: 01/01/2015 By the signature above, the attending physician certifies that he/she has personally conducted a gross and/or microscopic examination of the described specimens and rendered or confirmed the above diagnosis. End of Report [facility] 12/22/2014 12/23/2014 Sadaf Barron APRN PATHOLOGY ORDERABLES [facility] [address] [place] [address] documented in this encounter Visit Diagnoses Not on filedocumented in this encounter Care Teams Image Editor Relationship Specialty Start Date End Date Unknown, Provider, PCP - General 03/26/12 03/21/15 documented as of this encounter
--- OUTSIDE RECORDS SUMMARY | 2024-01-19 10:06 | XMS_ITS | Encounter Summary ---
Author Organization [facility] Address [address] [place] [address] Care Team Providers Care Assistant Football Coach Name Role Phone Unknown, Provider Primary Care Provider [phone] Encounter Details Date Type Department Care Team (Late st Contact Info) Description 03/25/2012 Results Only [facility] Laboratory Services - [address] [address] Aleksandra Swann NP Social History Tobacco Use [...] Diagnosis Comments PAP TEST- RESULT ONLY Routine 03/25/2012 0:00 EDT documented in this encounter Results * PAP TEST- RESULT ONLY (03/25/2012 0:00 EDT) Pathology Report: CYTOPATHOLOGY REPORT Reports generated via electronic interface contain original data; however they are lacking the format of the original report. Caution should be taken when reading/interpreti ng unformatted reports. Name: ? EMILY MICHAEL ? Accession #: ? [id number] ? : ? 1965 (Age: 46) ??F ?Collect Date: ? 03/25/2012 ? Location: ? [facility] ? Receive Date: ? 03/26/2012 ? Provider: ALEKSANDRA SWANN SYSTEMS SOFTWARE ENGINEER Copy to: ? Final Report SPECIMEN ADEQUACY ? Satisfactory for Evaluation - transformation zone component present GENERAL CATEGORIZATION ? Negative for Intraepithelial Lesion or Malignancy INTERPRETATION ? Reactive cellular changes associated with inflammation present (includes repair). Last Menstural Period: 02/29/12 Hormonal/Contracep tive status: Yes: vasectomy Previous Gynecologic Pathology: ALLIE: 1990 Treatment History: Cryotherapy: 1990 Specimen/Source: ??Pap Test, Cervix/Endocervix, ThinPrep Imaging System with manual evaluation Document reviewed and electronically signed by: ? MARIA LUISA GASPAR MD ? Report ??Date: 04/02/2012 15:48 HPV with Pap Test ? Date Ordered: ? 04/02/2012 ? Status: ?? Signed Out ?Date Complete: ? 04/04/2012 ? By: ??System Interface ? Date Reported: ? 04/04/2012 ? Interpretation RESULT: Negative for HPV. No E6 or E7 mRNA is detected from HPV types 16,18,31,33,35, 39,45,51,52,56,58, 59,66, and 68 by hvac estimator mediated amplification. Comments Document reviewed and electronically signed by: ? System Interface ? Report date: 04/04/2012 By the signature above, the attending physician certifies that he/she has personally conducted a gross and/or microscopic examination of the described specimens and rendered or confirmed the above diagnosis. End of Report [facility] 03/25/2012 03/26/2012 Aleksandra Swann SYSTEMS SOFTWARE ENGINEER PATHOLOGY ORDERABLES Performing Organization Address City/State/[facility] Co de Phone Number [facility] [address] [place] [address] documented in this encounter Visit Diagnoses Not on filedocumented in this encounter Care Teams Assistant Football Coach Relationship Specialty Start Date End Date Unknown, Provider, PCP - General 03/26/12 03/21/15 documented as of this encounter
--- OUTSIDE RECORDS SUMMARY | 2024-01-19 10:06 | XMS_ITS | Encounter Summary ---
Author Organization [facility] Address [address] [place] [address] Care Team Providers Care Parts Counter Representative Name Role Phone Gui Purvis MD Primary Care Provider [phone] Encounter Details Date Type Department Care Team (Late st Contact Info) Description 10/21/2020 Lab Requisition [facility] Pathology & Laboratory Medicine - [facility] [address], [place] [id number] Outr Resulting Lab, Provider Social History Tobacco Use Types Packs/Day Years Used Date Smoking Tobacco: Never Assessed Sex and Gender Information Value Date Recorded Sex Assigned at Not on file Gender Identity Not on file Sexual Orientation Not on file documented as of this encounter Plan of Treatment Not on file documented as of this encounter Procedures Procedure Name Priority Date/Time Associated Diagnosis Comments HIV 1/2 ANTIGEN AND ANTIBODY, 4TH GENERATION Routine 10/21/2020 9:25 EDT documented in this encounter Results * HIV 1/2 ANTIGEN AND ANTIBODY, 4TH GENERATION (10/21/2020 9:25 EDT) HIV 1 and 2 Antibody/p24 Antigen, 4th Generation Negative Negative 10/22/2020 12:18 EDT [facility] Comment: If acute HIV-1 infection is suspected in a high risk ??patient, submit plasma specimen for HIV-1 RNA quantitation test. Fourth Generation assay performed on the Siemens [employer]. Blood VENOUS BLOOD / Unknown 10/21/2020 9:25 EDT 10/21/2020 20:41 EDT Provider Outr Resulting Lab IMMUNOLOGY A ND SEROLOGY ORDERABLES [facility] [address] [place] [address] documented in this encounter Visit Diagnoses Not on filedocumented in this encounter Care Teams Parts Counter Representative Relationship Specialty Start Date End Date Gui Purvis MD PCP - General 03/22/15 documented as of this encounter
--- OUTSIDE RECORDS SUMMARY | 2024-01-19 10:06 | XMS_ITS | Encounter Summary ---
Author Organization [facility] Address [address] [place] [address] Care Team Providers Care Trial Management Associate Name Role Phone Unavailable Primary Care Provider Unavailabl e Encounter Details Date Type Department Care Team (Late st Contact Info) Description 03/07/2005 Results Only [facility] - [facility] [address] [place] [address] Octavia Loya, [facility] [place] [address] [place] [address] Social History Tobacco Use Types Packs/Day Years Used Date Smoking Tobacco: Never Assessed Sex and Gender Information Value Date Recorded Sex Assigned at Not on file Gender Identity Not on file Sexual Orientation Not on file documented as of this encounter Plan of Treatment Not on file documented as of this encounter Procedures Procedure Name Priority Date/Time Associated Diagnosis Comments CYTOPATHOLOGY Routine 03/07/2005 0:00 EDT documented in this encounter Results * CYTOPATHOLOGY (03/07/2005 0:00 EDT) Pathology Report: CYTOPATHOLOGY REPORT Reports generated via electronic interface contain original data; however they are lacking the format of the original report. Caution should be taken when reading/interpreti ng unformatted reports. Name: ? EMILY CARLIN ? Accession #: ? [id number] : ? 1965 (Age: 39) ??F ?Collect Date: ? 03/07/2005 Location: ? [facility] ? Receive Date: ? 03/09/2005 Provider: ?OCTAVIA LOYA TECHNICAL PROGRAMS MANAGER Copy to: ? Specimen/Source: ?ThinPrep Pap Test, Cervix/Endocervix, processed on [facility] ThinPrep Imaging System, with manual evaluation Last Menstrual Period: ? 02/19/05 Previous Gynecologic Pathology: ? ALLIE: 1990 Treatment History: ? Colposcopy Cryotherapy Other: ? HPVA - HPV testing requested if ASC-US on the current ThinPrep Pap test. ? SPECIMEN ADEQUACY ? Satisfactory for Evaluation - transformation zone component present GENERAL CATEGORIZATION ? Negative for Intraepithelial Lesion or Malignancy INTERPRETATION ? Reactive cellular changes associated with inflammation present (includes repair). ? Document reviewed and electronically signed by: ? PAWEL PEREZ MD ? Report Date: ??03/16/2005 15:34 End of Report [facility] 03/07/2005 03/09/2005 Octavia Loya TECHNICAL PROGRAMS MANAGER PATHOLOGY ORDERABLES [facility] [address] [place] [address] documented in this encounter Visit Diagnoses Not on filedocumented in this encounter
--- OUTSIDE RECORDS SUMMARY | 2024-01-19 10:06 | XMS_ITS | Encounter Summary ---
Author Organization [facility] Address [address] [place] [address] Care Team Providers Care Odd Piece Checker Name Role Phone Gui Purvis MD Primary Care Provider [phone] Encounter Details Date Type Department Care Team (Latest Contact Info) Description 10/22/2020 Lab Requisition [facility] [place] Pathology & Laboratory Medicine - [facility] [address] [place] [address] Berto Collins, [facility] [address] [place] [id number] Encounter for general adult medical examination without abnormal findings; Encounter for screening for malignant neoplasm of cervix; Encounter for screening for human papillomavirus (HPV) Social History Tobacco Use Types Packs/Day Years Used Date Smoking Tobacco: Never Assessed Sex and Gender Information Value Date Recorded Sex Assigned at Not on file Gender Identity Not on file Sexual Orientation Not on file documented as of this encounter Plan of Treatment Not on file documented as of this encounter Procedures Procedure Name Priority Date/Time Associated Diagnosis Comments PAP TEST Today 10/21/2020 9:00 EDT Encounter for general adult medical examination without abnormal findings Encounter for screening for malignant neoplasm of cervix Encounter for screening for human papillomavirus (HPV) HPV DNA DETECTION WITH GENOTYPING, PCR Today 10/21/2020 9:00 EDT Encounter for general adult medical examination without abnormal findings Encounter for screening for malignant neoplasm of cervix Encounter for screening for human papillomavirus (HPV) documented in this encounter Results * HUMAN PAPILLOMAVIRUS (HPV) DETECTION-HIGH RISK TYPES (10/21/2020 9:00 EDT) HPV other High Risk types, PCR Negative Negative 10/27/2020 15:27 [facility] Comment:No E6 or E7 mRNA is detected from HPV types 16,18,31,33,35,39,45,51,52,56,58,59,66, and 68 by eligibility consultant mediated amplification. Papanicolaou smear specimen (specimen) CERVIX UTERI STRUCTURE / Unknown 10/21/2020 9:00 EDT 10/26/2020 13:45 EDT Berto Amaya [facility] MICROBIOLOGY [facility] [address] [place] [address] * PAP TEST (10/21/2020 9:00 EDT) Specimens A. Cervix and/or Endocervix , ThinPrep Imaging System with Manual Evaluation 10/27/2020 15:27 [facility] Specimen Adequacy Satisfactory for Evaluation - assessment of transformation zone component not applicable ( e.g. atrophy, vaginal sample, hysterectomy) Scant squamous epithelial component, contamination present, possibly lubricant 10/27/2020 15:27 [facility] General Categorization Negative for intraepithelial lesion or malignancy 10/27/2020 15:27 [facility] Attestation . 10/27/2020 15:27 [facility] at 1527 Clinical History See below 10/28/19 21 15:27 [facility] HPV The result for the Human Papillomavirus (HPV) Detection-High Risk Types is Negative. No E6 or E7 mRNA is detected from HPV types 16,18,31,33,35,39 ,45,51,52,56,58,5 9,66, and 68 by eligibility consultant mediated amplification.Agnieszka ting was performed on specimen [id number] and was resulted on 10/27/2020 1524 EDT by MARIANNA, LAB INSTRUMENT RESULTS IN 10/27/2020 15:27 EDT [facility] Performing Lab [facility] 10/27/2020 15:27 EDT [facility] Scanned Images 10/27/2020 15:27 EDT [facility] Papanicolaou smear specimen (specimen) CERVIX UTERI STRUCTURE / Unknown 10/21/2020 9:00 EDT 10/22/2020 9:08 EDT Berto Amaya DNP PATHOLOGY ORDERAB LES [facility] [address] [place] [address] documented in this encounter Visit Diagnoses Diagnosis Encounter for general adult medical examination without abnormal findings Unspecified general medical examination Encounter for screening for malignant neoplasm of cervix Screening for malignant neoplasm of the cervix Encounter for screening for human papillomavirus (HPV) Special screening examination for human papillomavirus (HPV) documented in this encounter Care Teams Odd Piece Checker Relationship Specialty Start Date End Date Gui Purvis MD PCP - General 03/22/15 documented as of this encounter
--- OUTSIDE RECORDS SUMMARY | 2024-01-19 10:06 | XMS_ITS | Encounter Summary ---
Author Organization [facility] Address [address] [place] [address] Care Team Providers Care Marketing Technology Coordinator Name Role Phone Gui Purvis MD Primary Care Provider [phone] Encounter Details Date Type Department Care Team (Late st Contact Info) Description 01/15/2024 Lab Requisition [facility] Pathology & Laboratory Medicine - [facility] [address] [place], [place] [address] Outr Resulting Lab, Provider Social History Tobacco [...] PATHOGENS BY PCR Routine 01/15/2024 12:00 EDT documented in this encounter Results * FECAL BACTERIAL PATHOGENS BY PCR (01/15/2024 12:00 EDT) Salmonella PCR Negative Negative 01/16/2024 10:34 EDT [facility] Shigella/Enteroin vasive E. coli Negative Negative 01/16/2024 10:34 EDT [facility] HN LAB CAMPYLOBACTER PCR Negative Negative 01/16/2024 10:34 EDT [facility] Shiga Toxin PCR Negative Negative 10:34 EDT [facility] Feces SPECIMEN FROM RECTUM / Unknown 01/15/2024 12:00 EDT 01/15/2024 21:45 EDT Provider Outr Resulting Lab MICROBIOLOGY - GENERAL ORDERABLES [facility] [address] [place] [address] documented in this encounter Visit Diagnoses Not on filedocumented in this encounter Care Teams Marketing Technology Coordinator Relationship Specialty Start Date End Date Gui Purvis MD PCP - General 03/22/15 documented as of this encounter
--- OUTSIDE RECORDS SUMMARY | 2024-01-19 10:06 | XMS_ITS | Data Portability ---
Author Organization [facility], [facility] Address [address] [place] [address] Care Team Providers Care Preparer Name Role Phone [facility] Dentist Assessment Encounter Date Assessment Date Assessment LastModified by Organization Details LastModified Time 05/04/2023 05/04/2023 Patient presents for treatment of carpal tunnel syndrome. Based on history, physical exam, and prior diagnostic studies/treat ment, I recommend INSERT TEXT HERE. Discussed treatment plan with patient. Not available 05/04/2023 09:45:33 Plan of Treatment Reminders Order Date Submit Date Provider Last Modified By Organization Details Last Modified Time Details Appointments None recorded. Lab CBC 2022 023 nhaff Not available 3 14:56:00 TSH, serum, reflex free T4 2022 023 nhaff Not available 3 14:56:00 CMP, serum or plasma 2022 023 nhaff Not available 3 14:56:00 BMP, serum or plasma - 1 PST, 1 LAV obtained without issue from (R) 2023 024 [facility] (Registration ), [address] [place] [address] [place], [address], 4 09:23:36 TSH + free T4, serum - 1 PST, 1 LAV obtained without issue from (R) AC 2023 024 [facility] (Registration ), [address] [place] [address] [place], [address], 4 09:23:36 HbA1c (hemoglobin A1c), blood - 1 PST, 1 LAV obtained without issue from (R) AC 2023 024 [facility] (Registration ), [address] [place] [address] [place], [address], 4 09:23:36 CBC w/ auto diff 2023 024 [facility] (Registration ), [address] [place] [address] [place], [address], 4 16:23:14 CMP, serum or plasma 2023 024 [facility] (Registration ), [address] [place] [address] [place], [address], 4 16:35:14 C-reactive protein, quantitativ e, serum or plasma 2023 024 [facility] (Registration ), [address] [place] [address] [place], [address], 4 16:36:51 venipunctur e - Right AC, Butterfly, 1 SST 1 PURPLE 2023 024 Not available 4 12:18:58 fecal occult blood, immunoassay , stool 2023 024 [facility], [address], [address], [place], [address], 4 12:23:05 gastrointes tinal pathogens panel, PCR, stool 2023 024 [facility] ([facility]), [address] [place] [address] [place], [address], 4 12:07:07 giardia + cryptospori dium Ag, stool 2023 024 [email or web address] [facility] ([facility]), [address] [place] [address] [place], [address], 4 14:40:03 O&P (ova & parasites), stool 2023 024 [email or web address] r1 [facility] ([facility]), [address] [place] [address] [place], [address], 4 09:52:35 Referral plastic surgeon referral 2023 024 [facility], [address] [place] [address] [place], [address], 4 10:39:39 Procedures None recorded. Surgeries None recorded. Imaging CT, abdomen + pelvis, w/ contrast - Lower abdominal pain and cramping with blood in stool X 3 daysNo auth required. 2023 024 [facility], [address], [place], [address], 4 12:00:05 Medication Orders gabapentin 100 mg capsule 2022 023 [facility], [address] [place], [address], 3 10:59:49 phentermine 37.5 mg tablet 2022 023 [email or web address], [address] [place], [address], 4 07:28:54 Contrave 8 mg-90 mg tablet,exte nded release 2023 024 [facility], [address] [place], [address], 4 15:23:37 valacyclovi r 500 mg tablet 2023 024 [facility], [address] [place] [address], [address], 4 11:24:33 lorazepam 1 mg tablet 2023 024 [facility], [address] [place] [address], [address], 4 11:49:36 gabapentin 100 mg capsule 2023 024 [facility], [address] [place] [address], [address], 4 12:06:09 omeprazole 20 mg capsule,del ayed release 2023 024 [email or web address] [facility], [address] [place] [address], [address], 4 12:06:09 dicyclomine 20 mg tablet 2023 024 [facility], [address] [place] [address], [address], 4 17:15:01 prednisone 20 mg tablet 2023 024 [facility], [address] [place] [address], [address], 4 17:18:09 Patient TargetsNo targets recorded. Patient Instructions Encounter Date Encounter Id Patient Instructions Last Modified By Organization Details Last Modified Time 01/14/2024 [id number] Today, we are checking bloodwork to look for your iron levels, any signs of infection or active blood loss, inflammation, as well as your electrolytes and kidney function and liver enzymes. We are going to check a CT scan of your abdomen and pelvis, and hopefully get this scheduled today at [facility]. We should be able to call with results this afternoon. To the ER for worsening abdominal pain, vomiting blood, weakness, passing out/fainting. [email or web address] Not available 01/14/2024 12:17:49 Reason for Referral Health Consultation for Body mass index 30+ - obesity Referring Physician: Marcy Schmid [facility], Encounter Date: 10/10/2023 Plastic Surgeon Referral for Macromastia breast reduction surgery consult, chronic thoracic back pain and shoulder pain. wants to exercise Referring Physician: Marcy Schmid [facility], Encounter Date: 10/31/2023 Orthopaedic Technologist Referral for Melena Referring Physician: Vita Blandon [facility], Encounter Date: 01/17/2024 Results Created Date Observation Date Name Description Value Unit Range Abnormal Flag LastModifiedBy Organization Detail LastModifiedTime 05/04/2005/04/2023 TSH, serum or plasm a TSH, serum or plasma 0.91 micro intl_ units /mL 0.36-3 .74 normal Not Available Not Available 01/18/2024 03:36:32 05/04/2005/04/2023 hemog lobin (Hb), blood hemoglobin (Hb), blood 13.3 g/dL 11.2-1 5.7 normal Not Available Not Available 01/18/2024 03:36:31 05/04/2005/04/2023 gluco se, QN [mass /volu me], blood glucose ser 101 mg/dL 74-106 normal Not Available [facility] [address], [place], [address], 01/18/2024 03:36:31 05/04/2005/04/2023 CMP, serum or plasm a albumin, serum or plasma 4.0 g/dL 3.4-5. 0 normal Not Available Not Available 01/18/2024 03:36:23 05/04/20 23 05/04/2023 CMP, serum or plasm a aniongap 8.6 mmol/ L 3-11 normal Not Available Not Available 01/18/2024 03:36:23 05/04/20 23 05/04/2023 CMP, serum or plasm a bilirubin, total, serum or plasma 0.6 mg/dL 0.2-1. 0 normal Not Available Not Available 01/18/2024 03:36:23 05/04/20 23 05/04/2023 CMP, serum or plasm a BUN (blood urea nitrogen), serum or plasma 16 mg/dL 7-18 normal Not Available Not Available 03:36:23 05/04/20 23 05/04/2023 CMP, serum or plasm a calcium, qn, serum or plasma 10.1 mg/dL 8.5-10 .1 normal Not Available Not Available 01/18/2024 03:36:23 05/04/20 23 05/04/2023 CMP, serum or plasm a chloride, serum or plasma 100 mmol/ L 98-107 normal Not Available Not Available 01/18/2024 03:36:23 05/04/20 23 05/04/2023 CMP, serum or plasm a CO2, (carbon dioxide), total, serum or plasma 27.4 mmol/ L 21.0-3 2.0 normal Not Available Not Available 01/18/2024 03:36:23 05/04/20 23 05/04/2023 CMP, serum or plasm a creatinine, serum or plasma 0.8 mg/dL 0.55-1 .02 normal Not Available Not Available 01/18/2024 03:36:23 05/04/20 23 05/04/2023 CMP, serum or plasm a eGFR 85.89 (?) mL/mi n/1.7 3m2 mL/min /1.73m 2 Not Available Not Available 01/18/2024 03:36:23 05/04/20 23 05/04/2023 CMP, serum or plasm a potassium, serum or plasma 4.4 mmol/ L 3.5-5. 1 normal Not Available Not Available 01/18/2024 03:36:23 05/04/20 23 05/04/2023 CMP, serum or plasm a protein, total, serum 8.1 g/dL 6.4-8. 2 normal Not Available Not Available 01/18/2024 03:36:23 05/04/20 23 05/04/2023 CMP, serum or plasm a AST/SGOT (aspartate aminotransfe rase), serum or plasma 26 units /L 15-37 normal Not Available Not Available 01/18/2024 03:36:23 05/04/20 23 05/04/2023 CMP, serum or plasm a ALT (alanine aminotransfe rase), serum or plasma 23 units /L 14-59 normal Not Available Not Available 01/18/2024 03:36:23 05/04/20 23 05/04/2023 CMP, serum or plasm a sodium, serum or plasma 136 mmol/ L 136-14 5 normal Not Available Not Available 01/18/2024 03:36:23 05/04/20 23 05/04/2023 CBC hematocrit, automated count, blood 41.3 % 36.0-4 6.0 normal Not Available Not Available 01/18/2024 03:36:19 05/04/2005/04/2023 CBC MCH 28.5 pg 27.0-3 3.0 normal Not Available Not Available 01/18/2024 03:36:19 05/04/20 23 05/04/2023 CBC MCHC 32.2 % 32.0-3 6.0 normal Not Available Not Available 01/18/2024 03:36:19 05/04/2005/04/2023 CBC MCV, blood 89 fL 80-95 normal Not Available No t Available 01/18/2024 03:36:19 05/04/2005/04/2023 CBC MPV 11.7 fL 8.0-11 .0 high Not Available Not Available 01/18/2024 03:36:19 05/04/20 23 05/04/2023 CBC platelets, auto, blood 218 10 3/uL 10*3/ mm3 130-40 0 normal Not Available Not Available 01/18/2024 03:36:19 05/04/20 23 05/04/2023 CBC RBC count, blood 4.66 10 6/uL 10*6/ mm3 3.93-5 .22 normal Not Available Not Available 01/18/2024 03:36:19 05/04/20 23 05/04/2023 CBC RDW 12.9 % 11.7-1 4.6 normal Not Available Not Available 01/18/2024 03:36:19 05/04/20 23 05/04/2023 CBC WBC 5.40 10 3/uL 10*3/ mm3 4.4-10 .8 normal Not Available Not Available 01/18/2024 03:36:19 10/31/19 24 10/31/2023 HEMOG LOBIN A1C hemoglobin A1C 5.7 % <5.7 Not Available [address] [place], [address] 10/31/2023 21:14:23 10/31/19 24 10/31/2023 BASIC METAB OLIC PANEL calcium 9.6 mg/dL 8.5-10 .1 normal Not Available [address] [place], [address] 10/31/2023 21:14:24 10/31/19 24 10/31/2023 BASIC METAB OLIC PANEL glucose 97 mg/dL 74-106 normal Not Available [facility] [address] [place], [address] 10/31/2023 21:14:24 10/31/19 24 10/31/2023 BASIC METAB OLIC PANEL BUN 18 mg/dL 7-18 normal Not Available [facility] [address] [place], [address] 10/31/2023 21:14:24 10/31/19 24 10/31/2023 BASIC METAB OLIC PANEL creatinine 0.8 mg/dL 0.55-1 .02 normal Not Available [address] [place], [address] 10/31/2023 21:14:24 10/31/19 24 10/31/2023 BASIC METAB OLIC PANEL estimated GFR 85.35 mL/min /1.73m 2 Not Available [address] [place], [address] 10/31/2023 21:14:24 10/31/19 24 10/31/2023 BASIC METAB OLIC PANEL sodium 139 mmol/ L 136-14 5 normal Not Available [address] [place], [address] 10/31/2023 21:14:24 10/31/19 24 10/31/2023 BASIC METAB OLIC PANEL potassium 4.5 mmol/ L 3.5-5. 1 normal Not Available [address] [place], [address] 10/31/2023 21:14:24 10/31/19 24 10/31/2023 BASIC METAB OLIC PANEL chloride 103 mmol/ L 98-107 normal Not Available [address] [place], [address] 10/31/2023 21:14:24 10/31/19 24 10/31/2023 BASIC METAB OLIC PANEL CO2 26.0 mmol/ L 21.0-3 2.0 normal Not Available [address] [place], [address] 10/31/2023 21:14:24 10/31/19 24 10/31/2023 BASIC METAB OLIC PANEL anion gap 10.0 mmol/ L 3-11 normal Not Available [address] [place], [address] 10/31/2023 21:14:24 10/31/19 24 10/31/2023 TSH TSH 1.67 uIU/m L 0.36-3 .74 normal Not Available [address] [place], [address] 10/31/2023 21:14:25 10/31/19 24 10/31/2023 FREE T4 free T4 1.00 NG/dL 0.76-1 .46 normal Not Available [address] [place], [address] 10/31/2023 21:14:25 01/14/20 24 01/14/2024 COMPL ETE BLOOD COUNT W/DIF F WBC 7.84 10_3/ uL 4.4-10 .8 normal Not Available [address] [place], [address] 01/14/2024 16:23:14 01/14/20 24 01/14/2024 COMPL ETE BLOOD COUNT W/DIF F RBC 4.40 10_6/ uL 3.93-5 .22 normal Not Available [address] [place], [address] 01/14/2024 16:23:14 01/14/20 24 01/14/2024 COMPL ETE BLOOD COUNT W/DIF F HGB 13.0 g/dL 11.2-1 5.7 normal Not Available [address] [place], [address] 01/14/2024 16:23:14 01/14/20 24 01/14/2024 COMPL ETE BLOOD COUNT W/DIF F HCT 40.1 % 36.0-4 6.0 normal Not Available [address] [place], [address] 01/14/2024 16:23:14 01/14/20 24 01/14/2024 COMPL ETE BLOOD COUNT W/DIF F MCV 91 fL 80-95 normal Not Available [address] [place], [address] 01/14/2024 16:23:14 01/14/20 24 01/14/2024 COMPL ETE BLOOD COUNT W/DIF F MCH 29.5 pg 27.0-3 3.0 normal Not Available [address] [place], [address] 01/14/2024 16:23:14 01/14/20 24 01/14/2024 COMPL ETE BLOOD COUNT W/DIF F MCHC 32.4 % 32.0-3 6.0 normal Not Available [address] [place], [address] 01/14/2024 16:23:14 01/14/20 24 01/14/2024 COMPL ETE BLOOD COUNT W/DIF F RDW 13.0 % 11.7-1 4.6 normal Not Available [address] [place], [address] 01/14/2024 16:23:14 01/14/20 24 01/14/2024 COMPL ETE BLOOD COUNT W/DIF F platelet count 189 10_3/ uL 130-40 0 normal Not Available [address] [place], [address] 01/14/2024 16:23:14 01/14/20 24 01/14/2024 COMPL ETE BLOOD COUNT W/DIF F MPV 13.0 fL 8.0-11 .0 high Not Available [address] [place], [address] 01/14/2024 16:23:14 01/14/20 24 01/14/2024 COMPL ETE BLOOD COUNT W/DIF F neutrophils % 63.9 % Not Available [address] [place], [address] 01/14/2024 16:23:14 01/14/20 24 01/14/2024 COMPL ETE BLOOD COUNT W/DIF F lymphocytes % 26.1 % Not Available [address] [place], [address] 01/14/2024 16:23:14 01/14/20 24 01/14/2024 COMPL ETE BLOOD COUNT W/DIF F monocytes % 7.0 % Not Available [address] [place], [address] 01/14/2024 16:23:14 01/14/20 24 01/14/2024 COMPL ETE BLOOD COUNT W/DIF F eosinophils % 2.2 % Not Available [address] [place], [address] 01/14/2024 16:23:14 01/14/20 24 01/14/2024 COMPL ETE BLOOD COUNT W/DIF F basophils % 0.4 % Not Available [address] [place], [address] 01/14/2024 16:23:14 01/14/20 24 01/14/2024 COMPL ETE BLOOD COUNT W/DIF F immature grans % 0.4 % Not Available [address] [place], [address] 01/14/2024 16:23:14 01/14/20 24 01/14/2024 COMPL ETE BLOOD COUNT W/DIF F nucleated RBC 0.0 % 0.0-0. 3 normal Not Available [address] [place], [address] 01/14/2024 16:23:14 01/14/20 24 01/14/2024 COMPL ETE BLOOD COUNT W/DIF F absolute neutrophil count 5.01 10_3/ uL 1.2-6. 7 normal Not Available [address] [place], [address] 01/14/2024 16:23:14 01/14/20 24 01/14/2024 COMPL ETE BLOOD COUNT W/DIF F absolute lymphocyte count 2.05 10_3/ uL 1.2-3. 4 normal Not Available [address] [place], [address] 01/14/2024 16:23:14 01/14/20 24 01/14/2024 COMPL ETE BLOOD COUNT W/DIF F absolute monocyte count 0.55 10_3/ uL 0.1-0. 8 normal Not Available [address] [place], [address] 01/14/2024 16:23:14 01/14/20 24 01/14/2024 COMPL ETE BLOOD COUNT W/DIF F absolute eosinophil count 0.17 10_3/ uL 0.0-0. 7 normal Not Available [address] [place], [address] 01/14/2024 16:23:14 01/14/20 24 01/14/2024 COMPL ETE BLOOD COUNT W/DIF F absolute basophil count 0.03 10_3/ uL 0.0-0. 2 normal Not Available [address] [place], [address] 01/14/2024 16:23:14 01/14/20 24 01/14/2024 COMPR EHENS MARLENA METAB OLIC PANEL calcium 9.5 mg/dL 8.5-10 .1 normal Not Available [address] [place], [address] 01/14/2024 16:35:14 01/14/20 24 01/14/2024 COMPR EHENS MARLENA METAB OLIC PANEL glucose 91 mg/dL 74-106 normal Not Available [address] [place], [address] 01/14/2024 16:35:14 01/14/20 24 01/14/2024 COMPR EHENS MARLENA METAB OLIC PANEL BUN 13 mg/dL 7-18 normal Not Available [address] [place], [address] 01/14/2024 16:35:14 01/14/20 24 01/14/2024 COMPR EHENS MARLENA METAB OLIC PANEL creatinine 0.8 mg/dL 0.55-1 .02 normal Not Available [address] [place], [address] 01/14/2024 16:35:14 01/14/20 24 01/14/2024 COMPR EHENS MARLENA METAB OLIC PANEL estimated GFR 85.35 mL/min /1.73m 2 Not Available [address] [place], [address] 01/14/2024 16:35:14 01/14/20 24 01/14/2024 COMPR EHENS MARLENA METAB OLIC PANEL total protein 7.3 g/dL 6.4-8. 2 normal Not Available [address] [place], [address] 01/14/2024 16:35:14 01/14/20 24 01/14/2024 COMPR EHENS MARLENA METAB OLIC PANEL albumin 4.0 g/dL 3.4-5. 0 normal Not Available [address] [place], [address] 01/14/2024 16:35:14 01/14/20 24 01/14/2024 COMPR EHENS MARLENA METAB OLIC PANEL bilirubin, total 0.59 mg/dL 0.2-1. 0 normal Not Available [address] [place], [address] 01/14/2024 16:35:14 01/14/20 24 01/14/2024 COMPR EHENS MARLENA METAB OLIC PANEL alk phos 112 U/L 46-116 normal Not Available [facility] [address] [place], [address] 01/14/2024 16:35:14 01/14/20 24 01/14/2024 COMPR EHENS MARLENA METAB OLIC PANEL sodium 143 mmol/ L 136-14 5 normal Not Available [address] [place], [address] 01/14/2024 16:35:14 01/14/20 24 01/14/2024 COMPR EHENS MARLENA METAB OLIC PANEL potassium 4.4 mmol/ L 3.5-5. 1 normal Not Available [address] [place], [address] 01/14/2024 16:35:14 01/14/20 24 01/14/2024 COMPR EHENS MARLENA METAB OLIC PANEL chloride 105 mmol/ L 98-107 normal Not Available [address] [place], [address] 01/14/2024 16:35:14 01/14/20 24 01/14/2024 COMPR EHENS MARLENA METAB OLIC PANEL CO2 28.8 mmol/ L 21.0-3 2.0 normal Not Available [address] [place], [address] 01/14/2024 16:35:14 01/14/20 24 01/14/2024 COMPR EHENS MARLENA METAB OLIC PANEL anion gap 9.2 mmol/ L 3-11 normal Not Available [address] [place], [address] 01/14/2024 16:35:14 01/14/20 24 01/14/2024 COMPR EHENS MARLENA METAB OLIC PANEL AST 22 U/L 15-37 normal Not Available [address] [place], [address] 01/14/2024 16:35:14 01/14/20 24 01/14/2024 COMPR EHENS MARLENA METAB OLIC PANEL ALT 25 U/L 14-59 normal Not Available [address] [place], [address] 01/14/2024 16:35:14 01/14/20 24 01/14/2024 C-ANI CTIVE PROTE IN C-reactive protein 4.33 mg/dL <or=0. 5 high Not Available [facility] (Registration ) [address] [place] [address] [place], [address], 01/14/2024 16:35:15 01/14/20 24 01/14/2024 fecal occul t blood , immun oassa y, stool iFOB positi ve Not Available [address], [place], [address], 01/14/2024 12:08:17 01/15/20 24 01/16/2024 FECAL BACTE RIAL PATHO GENS PCR salmonella PCR Negati ve negati ve Not Available [facility] ([facility]) [address] [place] [address] [place], [address], 01/16/2024 11:38:54 01/15/20 24 01/16/2024 FECAL BACTE RIAL PATHO GENS PCR shigella/ent eroinvasive ecoli Negati ve negati ve Not Available [facility] ([facility]) [address] [place] [address] [place], [address], 01/16/2024 11:38:54 01/15/20 24 01/16/2024 FECAL BACTE RIAL PATHO GENS PCR campylobacte r PCR Negati ve negati ve Not Available [facility] ([facility]) [address] [place] [address] [place], [address], 01/16/2024 11:38:54 01/15/20 24 01/16/2024 FECAL BACTE RIAL PATHO GENS PCR shiga toxin PCR Negati ve negati ve Not Available [facility] ([facility]) [address] [place] [address] [place], [address], 01/16/2024 11:38:54 01/14/20 24 01/14/2024 CT, abdom en + pelvi s, w/ contr ast Patien t Name: HavelockJayjay jimi tera Ro Unit #: [id number] Loc: DI Orderi ng Provid er: EDNA DO Accoun t #: [id number] Status : REG CLI Primar y Care Provid er: Unknow n,Unkn own Date of Exam: Sex: F : 1965 Age: 58 Exam(s ) a CT:CT abdome n pelvis w Exam(s ) CT ABDOME N PELVIS W EXAM: CT ABDOME N PELVIS W CLINIC AL HISTOR Y: LOW ABD PAIN.R 10.30, CRAMPI NG,BLO OD IN STOOL TECHNI QUE: Imagin g Protoc ol: Axial comput ed tomogr aphy images with arriola l and sagitt al reform atted images were create d and review ed. CONTRA ST MATERI AL: Intrav enous: Omnipa que [address] volume :100 mL Oral: Yes COMPAR LOGAN: CT CT ABDOME N PELVIS WO/W from 2022 FINDIN GS: ABDOME N: Lung Bases: There is a calcif ied granul mauricio in the right lower lobe. Liver: Normal densit y. No measur able mass. Portal , Superi or Mesent leo, and Spleni c Veins: Unrema rkable . Gallbl adder and Biliar y Tract: No radiod ense calcul us or dilati on. Pancre as: Normal densit y, no abnorm al calcif icatio ns or inflam matory proces s. Spleen : Normal . Adrena ls: No masses seen. Kidney s: Normal size, contou r and axis. No radiod ense stones or obstru ctive uropat hy. No masses seen. Abdomi nal Aorta: Abdomi nal portio n non-di lated. Athero sclero tic calcif icatio n is presen t. Bowel: There is bowel wall thicke leelee seen in the descen ding colon with mild inflam matory change s in the surrou nding soft tissue s. There is no eviden ce of bowel obstru ction. Append ix is unrema rkable . Perito anne Cavity : No ascite s, collec tion or mesent leo inflam matory respon se. No free air. Lymph Nodes: Within normal limits . Bones: Within normal limits for the patien t's age. There are stable degene rative change s seen at the L5-S1 disc level. Soft Tissue s: Unrema rkable . PELVIS : Bladde r: Symmet josefa disten tion, no gross wall thicke leelee. Reprod uctive Organs : Status post hyster ectomy . Lymph Nodes: Within normal limits . Bones: Within normal limits for the patien t's age. IMPRES TIKA: 1. There is mild bowel wall thicke leelee seen in the distal descen ding colon. There are mild inflam matory change s in the surrou nding soft tissue s. The findin gs are concer leelee for infect ious/i nflamm atory coliti s. Neopla sm cannot be entire ly exclud ed. Please correl ate clinic ally. A follow -up examin ation after treatm ent is sugges grover to [facility] nt resolu tion. 2. No absces s or free air. Unexpe cted findin gs RADIAT ION DOSE DELIVE RED: Total DLP DATA REPOSI TORY: All CT scans at this facili ty are submit grover to the [facility] Radiol ogy Data Regist ry (NRDR) Dose Index Regist ry (DIR) with the [place] [facility] of Radiol ogy (ACR). RADIAT ION OPTIMI ZATION : [facility] CT [facility] use at least one of these dose optimi zation techni ques: automa grover exposu re contro l; mA and/or kV adjust ment per patien t size (inclu katy target ed exams where dose is matche d to clinic al indica tion); or iterat marlena recons tructi on. 018: Total DLP = 0.00 mGy-cm Ordere d By: EDNA DO CC: ------ ------ ------ ------ ------ ------ ------ ------ ------ ------ ------ ------ ---- Dictat ed By: Julien Lucero M.D. 162 162 Transc ribed By: Julien Lucero 1623 This is privil eged, confid ential inform ation intend ed only for the provid er named. Any use or distri bution by any person other than this provid er is strict ly prohib ited. If you receiv e this report in error, please notify us immweston aragon at [phone] and return the origin al report to us at the addres s above. Thank- you. [email or web address] [facility] [address], [place], [address], 01/17/2024 12:00:05 Result Notes None recorded. Problems Name Status Onset Date Resolution Date Notes Provider Name and Address Organization Details Recorded Time Body mass index 30+ - obesity Active 201212/16/2022 - Comments only - Marcy Schmid [employer]SPORTATION SERVICES REPRESENTATIVE - Stop phentermine. Weaning schedule given, half a tab daily for a week and then stop. Not helpful even though she has done it before with good effect. Start Wegovy 0.25 mg once weekly for 4 weeks then we will check in by phone. If no side effects we may increase to 0.5 mg. Problem Code: Z68.36; Problem Code Type: ICD-10; Not Available [facility] 3 05:24:51 Herpesvirus infection Active 2012 Problem Code: B00.89; Problem Code Type: ICD-10; Not Available [facility] 3 05:24:51 Hypothyroidis m Active 2012 Problem Code: E03.9; Problem Code Type: ICD-10; Not Available [facility] 3 05:24:51 Dysuria Completed 201402/15/2015 Problem Code: R30.0; Problem Code Type: ICD-10; Not Available [facility] 3 05:24:52 Abdominal pain Completed 201402/05/2015 Problem Code: R10.9; Problem Code Type: ICD-10; Not Available [facility] 3 05:24:52 Otitis media Completed 201608/18/2016 Problem Code: H66.90; Problem Code Type: ICD-10; Not Available [facility] 3 05:24:52 Acute sinusitis Completed 201605/11/2017 Problem Code: J01.90; Problem Code Type: ICD-10; Not Available [facility] 3 05:24:52 Gastroesophag eal reflux disease without esophagitis Active 2018 Problem Code: K21.9; Problem Code Type: ICD-10; Not Available [facility] 3 05:24:52 Generalized anxiety disorder Active 201911/20/2019 - Comments only - Kelly Bonhote RAG SORTER - Less disability related to anxiety. Encouraged counseling to supplement medication and manage anxiety that is situational and reactive with stressors. Problem Code: F41.1; Problem Code Type: ICD-10; Not Available [facility] 3 05:24:52 Hyperglycemia Active 202006/13/2022 - Comments only - Marcy Schmid TRANSPORTATION SERVICES REPRESENTATIVE - A1C ordered today Problem Code: R73.9; Problem Code Type: ICD-10; Not Available [facility] 3 05:24:52 Hyperlipidemi a Active 202006/13/2022 - Comments only - Marcy Schmid TRANSPORTATION SERVICES REPRESENTATIVE - cholesterol panel ordered today. 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; Problem Code Type: ICD-10; Not Available [facility] 3 05:24:52 Vitreous degeneration of left eye Active 2021 Problem Code: H43.812; Problem Code Type: ICD-10; Not Available [facility] 3 05:24:53 Chest pain Completed 202111/18/2021 Problem Code: R07.9; Problem Code Type: ICD-10; Not Available [facility] 3 05:24:53 Disorder of tongue Completed 202111/01/2023 06/13/2022 - Comments only - Marcy Schmid TRANSPORTATION SERVICES REPRESENTATIVE - Will follow up with ENT next week. Problem Code: K14.8; Problem Code Type: ICD-10; [address], [place], [address] , [place] - [facility] 4 14:50:34 Pain in left lower limb Active 202106/13/2022 - Comments only - Marcy Schmid TRANSPORTATION SERVICES REPRESENTATIVE - Exam and symptoms today consistent with femoral nerve entrapment syndrome. Discussed massage, heat, and montioring for how much it bothers her/affects her sleep or daily activities. Discussed gabapentin trial for at least at bedtime. Can refer to neurology if it continues or she wishes to see them for further testing. Problem Code: M79.605; Problem Code Type: ICD-10; Not Available [facility] 3 05:24:53 Increased frequency of urination Completed 202111/01/2023 06/13/2022 - Comments only - Marcy Schmid TRANSPORTATION SERVICES REPRESENTATIVE - see above. urinary testing negative today. Problem Code: R35.0; Problem Code Type: ICD-10; [address], [place], [address] , [facility] 4 14:49:39 Femoral neuropathy Active 202106/13/2022 - Comments only - Marcy Schmid TRANSPORTATION SERVICES REPRESENTATIVE - see above Problem Code: G57.20; Problem Code Type: ICD-10; Not Available [facility] 3 05:24:53 Counseling Completed 202106/26/2022 06/13/2022 - Comments only - Marcy Schmid TRANSPORTATION SERVICES REPRESENTATIVE - Now established on my panel. Will follow up as directed below, 6 months. sooner if concerns. Problem Code: Z71.89; Problem Code Type: ICD-10; [address], [place], [address] , [facility] 4 14:50:22 Overactive urinary bladder Active 202210/16/2022 - Comments only - Marcy Schmid TRANSPORTATION SERVICES REPRESENTATIVE - [facility], Dr. Magana, is managing this for now. Related to postsurgical issue with sutures with recent ureterovagina l prolapse surgical repair. Problem Code: N32.81; Problem Code Type: ICD-10; Not Available [facility] 3 05:24:56 Counseling Completed 202211/01/2023 12/16/2022 - Comments only - Marcy Schmid TRANSPORTATION SERVICES REPRESENTATIVE - Discussed diet and exercise in addition to starting Wegovy at low-dose 0.25 mg. Problem Code: Z71.89; Problem Code Type: ICD-10; [address], [place], [address] , [facility] 4 14:50:22 Screening for malignant neoplasm of breast Active 2022 Problem Code: Z12.39; Problem Code Type: ICD-10; Not Available [facility] 3 05:24:56 Carpal tunnel syndrome of right wrist Active 202201/20/2023 - Comments only - Marcy Schmid TRANSPORTATION SERVICES REPRESENTATIVE - try the cock-up wrist splint on your right arm/wrist, at least nightly and when doing aggravating activities ibuprofen 600mg with food at night and the tylenol 1000mg in the day for anti-inflamma tory ice at night. or after aggravating activities over carpal box 20 minutes as shown for right elbow can try the elbow brace you have with ice Gabapentin nightly 100mg at bedtime, if not helpful, go up to 200mg after 2 nights, then if not helpful, can go to max of 300mg nightly. Problem Code: G56.01; Problem Code Type: ICD-10; Not Available [facility] 3 05:24:57 Lateral epicondylitis of right humerus Active 2022 Problem Code: M77.11; Problem Code Type: ICD-10; Not Available [facility] 3 05:24:57 Adult health examination Completed 201402/14/2016 Problem Code: Z00.00; Problem Code Type: ICD-10; Not Available [facility] 3 05:24:58 Increased frequency of urination Completed 202105/08/2022 Problem Code: R35.0; Problem Code Type: ICD-10; [address], [place], [address] , [facility]. 4 14:49:39 Acute pharyngitis Completed 201604/11/2017 Problem Code: J02.9; Problem Code Type: ICD-10; Not Available [facility] 3 05:24:59 Obesity Completed 201203/14/2023 Problem Code: E66.9; Problem Code Type: ICD-10; Not Available [facility] 3 05:24:59 History of depression Completed 201203/14/2023 Not Available [facility] 3 05:24:59 Postmenopausa l bleeding Completed 202110/16/2022 Problem Code: N95.0; Problem Code Type: ICD-10; Not Available [facility] 3 05:24:59 Viral screening Completed 202010/22/2020 Problem Code: Z11.59; Problem Code Type: ICD-10; Not Available [facility] 3 05:24:59 Urinary tract infectious disease Completed 201702/20/2019 Problem Code: N39.0; Problem Code Type: ICD-10; Not Available [facility] 3 05:25:00 Hyperlipidemi a Completed 201202/20/2019 Problem Code: E78.5; Problem Code Type: ICD-10; Not Available [facility] 3 05:25:00 Screening for malignant neoplasm of colon Completed 201510/22/2020 Problem Code: Z12.11; Problem Code Type: ICD-10; Not Available [facility] 3 05:25:00 Disorder of urinary bladder Completed 202110/16/2022 Problem Code: N32.9; Problem Code Type: ICD-10; Not Available [facility] 3 05:25:01 Anxiety Completed 201210/22/2020 Problem Code: F41.8; Problem Code Type: ICD-10; [address], [place], [address] , [facility] 3 23:51:48 Fatigue Completed 201504/03/2022 Problem Code: R53.83; Problem Code Type: ICD-10; Not Available [facility] 3 05:25:02 Streptococcal sore throat Completed 202104/03/2022 Problem Code: J02.0; Problem Code Type: ICD-10; Not Available [facility] 3 05:25:02 Adult health examination Completed 201510/16/2022 Problem Code: Z00.00; Problem Code Type: ICD-10; Not Available [facility] 3 05:25:02 Menorrhagia Completed 201402/20/2019 Problem Code: N92.4; Problem Code Type: ICD-10; Not Available [facility] 3 05:25:03 Glossodynia Completed 202104/03/2022 Problem Code: K14.6; Problem Code Type: ICD-10; Not Available [facility] 3 05:25:03 Dyslipidemia Completed 201203/14/2023 Not Available [facility] 3 05:25:05 Lower abdominal pain Completed 201810/22/2020 Problem Code: R10.30; Problem Code Type: ICD-10; Not Available [facility] 3 05:25:06 Abdominal distension, gaseous Completed 201402/20/2019 Problem Code: R14.0; Problem Code Type: ICD-10; Not Available [facility] 3 05:25:06 Disorder of lipoprotein AND/OR lipid metabolism Completed 201404/15/2015 Problem Code: E78.9; Problem Code Type: ICD-10; Not Available [facility] 3 05:25:06 Headache Completed 202104/03/2022 Problem Code: R51.9; Problem Code Type: ICD-10; Not Available [facility] 3 05:25:06 Localized enlarged lymph nodes Completed 201805/27/2019 Problem Code: R59.0; Problem Code Type: ICD-10; Not Available [facility] 3 05:25:07 Noninflammato ry disorder of uterus Completed 202110/16/2022 Problem Code: N85.9; Problem Code Type: ICD-10; Not Available [facility] 3 05:25:07 Anxiety Active 2022 Problem Code: F41.8; Problem Code Type: ICD-10; [address], [place], [address] , [facility]. 3 23:51:48 Binge eating behavior Active [address], [place], [address] , [facility] 4 10:47:45 Femoral neuropathy Active [address], [place], [address] , [facility] 4 14:52:25 Macromastia Active [address], [place], [address] , [facility] 4 14:55:33 Thoracic back pain Active [address], [place], [address] , [facility] 4 14:55:37 Notes:*Problem Name: Chronic Herpes (hsv) 2 Vulva *ICD-10 Codes: *Problem Status: inactive *Comments: *Note Date: 09/25/2012 Problem Notes None recorded. Procedures Surgical History None recorded. Imaging Results Imaging Date Name Status LastModified by Organiz ation Details LastModified Time 01/14/2024 CT, abdomen + pelvis, w/ contrast completed [address], [place], [address], 01/17/2024 12:00:05 Procedure Notes None recorded. Medical Equipment None Reported. Allergies No known drug allergies Medications Name Sig Start Date Stop Date Status Note LastModified by Organization Details LastModified Time Prescript ion - Prior Authoriza tion Request 10/30 completed Not Available Not Available Not Available amoxicill in 500 mg capsule TAKE 2 TABLETS BY MOUTH IMMEDIAT BEN THEN 1 TABLET EVERY 6 HOURS UNTIL GONE 08/27 completed Not Available Not Available Not Available atorvasta tin 40 mg tablet TAKE ONE TABLET BY MOUTH EVERY DAY AT BEDTIME active Not Available Not Available No t Available buspirone 5 mg tablet Take 1 tablet by mouth once a day 10/21 completed Not Available Not Available Not Available bupropion HCl SR 150 mg tablet,12 hr sustained -release 12/01 completed Not Available Not Available Not Available azithromy joel 250 mg tablet Take 2 tablet by mouth single dose 2 tabs today, then take 1 tablet by mouth daily for the next 4 days. 03/11 completed Not Available Not Available Not Available ibuprofen 800 mg tablet Take 1 by mouth three times daily 02/13 completed Not Available Not Available Not Available Lac-Hydri n 12 % topical cream Apply to skin twice a day 11/17 completed Not Available Not Available Not Available Lidocaine Viscous 2 % mucosal solution Apply 1 ml as directed three times a day as needed for pain Apply a small amount to affected area as needed for eating, drinking and going to bed. Do not swallow. 03/01 completed Not Available Not Available Not Available naltrexon e 50 mg tablet 12/01 completed Not Available Not Available Not Available metronida zole 0.75 % (37.5 mg/5 gram) vaginal gel Insert 1 applicat orful into vagina at bedtime for 5 nights 05/22 completed Not Available Not Available Not Available prednison e 20 mg tablet Take 2 tablets every day by oral route for 5 days. 2023 active Not Available Not Available Not Avai lable sertralin e 100 mg tablet TAKE ONE AND ONE-HALF TABLETS BY MOUTH EVERY DAY active Not Available Not Available No t Available Pyridium 200 mg tablet 1 tablet by mouth three times a day As needed for pain with urinatio n 04/19 completed Not Available Not Available Not Available phentermi ne 15 mg capsule Take 1 capsule by mouth every morning 09/15 completed Not Available Not Available Not Available penicilli n V potassium 500 mg tablet Take 1 tablet by mouth twice a day 04/12 completed Not Available Not Available Not Available metronida zole 500 mg tablet Take 1 tablet by mouth twice a day 04/20 completed Not Available Not Available Not Available phentermi ne 37.5 mg tablet TAKE ONE TABLET BY MOUTH EVERY MORNING 06/18 completed Not Available Not Available Not Available Detrol LA 4 mg capsule,e xtended release Take 1 capsule every day by oral route. 05/04 completed RX from [employer] Not Available Not Available Not Available valacyclo vir 500 mg tablet TAKE ONE TABLET BY MOUTH TWICE A DAY NEEDED FOR 5 DAYS 01/13 completed Not Available Not Available Not Available Wellbutri n SR 100 mg tablet, 12 hr sustained -release 1 TAB twice daily 2014 active Not Available Not Available Not Avai lable phentermi ne 30 mg capsule Take 1 capsule by mouth once a day in the morning 10/10 completed trial start date 09/16/22- 12 week course for weight loss boost. will need monthly follow ups. Not Available Not Available Not Available levothyro xine 100 mcg tablet TAKE ONE TABLET BY MOUTH EVERY DAY active Not Available Not Available No t Available bupropion HCl 100 mg tablet Take 1 tab by mouth three times daily (start with 100 mg daily for 1 week, increase to 100 mg twice daily for a week, then 100 mg po TID) 10/21 completed Not Available Not Available Not Available levothyro xine 88 mcg tablet Take 1 by mouth daily 04/02 completed Not Available Not Available Not Available amoxicill in 875 mg tablet take 1 tab by mouth twice daily 04/18 completed Not Available Not Available Not Available dicyclomi ne 20 mg tablet Take 1 tablet 4 times a day by oral route as needed for 7 days, for abdmoina l cramping /pain. 2023 active Not Available Not Available Not Avai lable cimetidin e 200 mg tablet Take 2 tab by mouth daily, 30 minutes prior to meal 04/25 completed Not Available Not Available Not Available fluoxetin e 20 mg tablet 1 tab qd 09/03 completed Not Available Not Available Not Available ranitidin e 150 mg tablet take 1 tablet by mouth twice a day if needed for ACID REFLUX 04/25 completed Not Available Not Available Not Available omeprazol e 20 mg capsule,d elayed release TAKE ONE CAPSULE BY MOUTH EVERY DAY active Not Available Not Available No t Available cephalexi n 500 mg tablet Take 1 tablet by mouth twice a day 04/24 completed Not Available Not Available Not Available gabapenti n 100 mg capsule TAKE THREE CAPSULES BY MOUTH EVERY EVENING AT BEDTIME FOR RIGHT HAND NUMBNESS /TINGLIN G/PAIN active Not Available Not Available No t Available lorazepam 1 mg tablet TAKE ONE TABLET BY MOUTH EVERY DAY NEEDED FOR ANXIETY/ PANIC active Not Available Not Available No t Available sertralin e 50 mg tablet Take 2 tablet by mouth once a day 11/17 completed Not Available Not Available Not Available phentermi ne 37.5 mg capsule Take 1 capsule by mouth once a day in the morning 12/05 completed Not Available Not Available Not Available Bactrim DS 800 mg-160 mg tablet Take 1 tab by mouth twice daily 08/29 completed Not Available Not Available Not Available escitalop vickie 20 mg tablet take 0.5 tablet by mouth once daily (taperin g off) 04/25 completed Not Available Not Available Not Available Lexapro 10 mg tablet Take 1 tab by mouth daily for one week, then increase to 20mg daily 2014 active Not Available Not Available Not Avai lable Cipro XR 500 mg tablet,ex tended release Take 1 by mouth twice daily 02/12 completed Not Available Not Available Not Available nitrofura ntoin monohydra te/macroc rystals 100 mg capsule TAKE ONE CAPSULE BY MOUTH EVERY 12 HOURS FOR SEVEN DAYS, MUST TAKE WITH FOOD 05/04 completed Not Available Not Available Not Available Bactrim DS 1TAB twice daily 12/22 completed Not Available Not Available Not Available liragluti de 0.6 mg/0.1 mL (18 mg/3 mL) subcutane ous pen injector inject 0.6mg once daily x 1 week then increase to 1.2mg once daily 10/30 completed Not Available Not Available Not Available Qsymia 3.75 mg-23 mg capsule, extended release TAKE ONE CAPSULE BY MOUTH EVERY MORNING FOR 28 DAYS, FOR WEIGHT MANAGEME NT AND BINGE EATING BEHAVIOR 01/13 completed Not Available Not Available Not Available Contrave 8 mg-90 mg tablet,ex tended release TAKE ONE TABLET BY MOUTH EVERY DAY FOR 7 DAYS; THEN TAKE ONE TABLET TWICE DAILY FOR 7 DAYS; THEN TAKE TWO TABLETS IN THE MORNING FOR 1 WEEK; 12/20 completed Not Available Not Available Not Available Trulicity 0.75 mg/0.5 mL subcutane ous pen injector 10/30 completed Not Available Not Available Not Available Saxenda 3 mg/0.5 mL (18 mg/3 mL) subcutane ous pen injector Inject 3 mg subcutan eously once a day 05/16 completed Not Available Not Available Not Available Wegovy 0.25 mg/0.5 mL subcutane ous pen injector INJECT 0.25MG UNDER THE SKIN ONCE WEEKLY FOR 4 WEEKS; THEN TAKE 0.5MG UNDER THE SKIN ONCE PER WEEK THEREAFT ER 01/17 completed Not Available Not Available Not Available Wegovy 0.5 mg/0.5 mL subcutane ous pen injector Inject 0.5mg under the skin once a week 2023 active Not Available Not Available Not Avai lable Ozempic 0.25 mg or 0.5 mg (2 mg/3 mL) subcutane ous pen injector Inject 0.25 mg subcutan eously once a week 01/19 completed Not Available Not Available Not Available Vitals Date Recorded Body height Body mass index (BMI) Body weight Body temperature Heart rate Respiratory rate Systolic blood pressure Diastolic blood pressure Provider Name and Address Organization Details Last Updated DateTime 3 153.035 cm 36.4 kg/m2 27858.3 7 g 98.1 [degF] 80 /min 18 /min 116 mm[Hg] 68 mm[Hg] DAPHNE MARISCAL RN [facility], [facility] 3 10:14:53 Date Recorded Body height Body mass index (BMI) Body weight Body temperature Heart rate Respiratory rate Systolic blood pressure Diastolic blood pressure Provider Name and Address Organization Details Last Updated DateTime 4 153.04 cm 37.5 kg/m2 90458.2 g 98.2 [degF] 76 /min 16 /min 110 mm[Hg] 76 mm[Hg] DAPHNE MARISCAL RN [facility] 4 10:36:36 Date Recorded Body height Body mass index (BMI) Body weight Body temperature Oxygen saturation Oxygen saturation in Arterial blood by Pulse oximetry Heart rate Respiratory rate Systolic blood pressure Diastolic blood pressure Provider Name and Address Organization Details Last Updated DateTime 4 153.04 cm 36.8 kg/m2 53930.5 5 g 98.4 [degF] 97 % 97 % 86 /min 17 /min 117 mm[Hg] 85 mm[Hg] LIZBETH WEISS MA [facility] 4 11:26:43 Social History Question Answer Notes LastModified by Organizat ion Details LastModified Time Tobacco Smoking Status Never Smoker DAPHNE MARISCAL RN [facility], [facility] 05/04/2023 09:55:10 What Is Your Level Of Alcohol Consumption? Occasional Information not available 05/04/2023 What Was The Date Of Your Most Recent Tobacco Screening? 01/14/2024 [email or web address] Information not available 01/14/2024 Do You Use Any Illicit Or Recreational Drugs? No Information not available 05/04/2023 Do You Or Have You Ever Used Any Other Forms Of Tobacco Or Nicotine? No Information not available 05/04/2023 Sex: Female Functional Status None recorded. Mental Status None recorded. Family History Relationship Description Onset Age of this Age Resolved Age Notes Notes:*Problem: Mother: Dece ased 70 Emphysema Father: Passed 86 Dementia, hyperlipidemia Sisters: 2 Brothers: 2 all alive well sister has DM Children: 2, 21 Ingrisdamir Dumonten, 18 Bob Pugh Family History of: Hypertension: No Hyperlipidemia: Yes Father, Mother COPD / Empysema: Mother Coronary heart disease: No Diabetes mellitus: Yes Sister Breast cancer: No Colorectal cancer: No Prostate cancer: No Alcoholism: No Mental illness: No Other: Yes Obesity: Mother, Sisters, Brothers Medical History No medical history recorded. Gynecological HistoryNo gynecological history recorded. Obstetrics History GPAL:G 0 P 0 0 0 0 Immunizations Vaccine Type Date Status Provider Name and Address Organization Details Recorded Time Influenza, split virus, quadrivalent, PF 05/04/[address] [place], [address], [facility]. 05/04/2023 21:27:46 MMR 07/06/2014 completed Not Available [facility] 06:23:31 Tdap 02/20/2019 completed Not Available [facility] 06:23:31 Influenza, split virus, trivalent, preservative 08/12/2015 completed Not Available [facility] 04/27/2023 06:23:31 Influenza, split virus, quadrivalent, PF 03/27/2019 completed Not Available [facility] 04/27/2023 06:23:31 Influenza, split virus, quadrivalent, PF 04/03/2022 completed Not Available [facility] 04/27/2023 06:23:31 zoster recombinant 11/30/[address] [facility] 04/27/2023 06:23:32 zoster recombinant 02/01/[address] [facility] 04/27/2023 06:23:32 COVID-19, mRNA, LNP-S, PF, 100 mcg/0.5mL dose or 50 mcg/0.25mL dose 10/03/2020 completed Not Available [facility] 04/27/20 06:23:32 COVID-19, mRNA, LNP-S, PF, 100 mcg/0.5mL dose or 50 mcg/0.25mL dose 10/31/2020 completed Not Available [facility] 04/27/20 06:23:32 COVID-19, mRNA, LNP-S, PF, 100 mcg/0.5mL dose or 50 mcg/0.25mL dose 05/07/2021 completed Not Available [facility] 04/27/20 06:23:32 COVID-19, mRNA, LNP-S, bivalent, PF, 30 mcg/0.3 mL dose 06/06/2022 completed Not Available [facility] 04/27/2023 06:23:32 Hep B, unspecified formulation 07/06/2014 completed Not Available [facility] 04/27/2023 06:23:32 Hep B, unspecified formulation 08/07/2014 completed Not Available [facility] 04/27/2023 06:23:32 influenza, unspecified formulation 07/03/2014 completed Not Available [facility] 04/27/2023 06:23:32 influenza, unspecified formulation 03/25/2021 completed Not Available [facility] 04/27/2023 06:23:32 Past Encounters Encounter ID Performer Location Encounter Start Date Encounter Closed Date Diagnosis/Indication Diagnosis SNOMED-CT Code [id number] MARCY SCHMID [address] [place] [address] 05/04/2023 09:56:25 05/04/2023 11:06:28 Lateral epicondylitis of right humerus [id number] 7 Fatigue 33483224 Administra tion of influenza vaccine 02160589 Hypothyroidism 05453397 Body mass index 30+ - obesity 926908362 Bilateral carpal tunnel syndrome [id number] MARCY SCHMID [address] [place] [address] 10/31/2023 10:22:46 10/31/2023 12:43:35 Pain in left lower limb [id number] Herpesvirus infection 23 015995 Anxiety [id number] Hypothyroidism 17493552 Gastroesop hageal reflux disease without esophagitis [id number] Binge eating behavior 11 [id number] Body mass index 30+ - obesity [id number] Macromastia 047529908 Lateral ep icondylitis of right humerus [id number] 7 Femoral neuropathy 35134 000 Thoracic back pain 85704 8004 [id number] SOPHY DO, [address] [address] 01/14/2024 10:42:40 01/14/2024 12:28:07 Lower abdominal pain [id number] Melena [id number] Colitis [id number] Health Concerns Section Related Observation LastModified by Organization Detai ls LastModified Time None Recorded Concern Status LastModified by Organization Details LastModified Time None Recorded Advance Directives Directive None Recorded Payers Encounter Date Sequence Insurance Name Policy Number Policy Multani Covered Member ID Multani Member ID Guarantor Name 05/04/2023 1 [employer] () Emily Michael [id number] Emily Michael 10/31/2023 1 [employer] () Emily Michael [id number] Emily Michael 01/14/2024 1 [facility] () Emily Michael [id number] Emily Michael Notes Date Note Type Note Provider Name and Address Organization Details Recorded Time 05/04/2023 text/html HPI Notes: Oneida cedillo is a pleasant 57-year-old female here today for 3-month follow-up to carpal tunnel bilateral as well as right-sided lateral epicondylitis. Has been using her brace nightly and reports that her carpal tunnel has improved significantly. Also using 200 mg gabapentin nightly and feels that this is very helpful. No concerns with this today. She is still feeling very fatigued and is wondering about other weight loss options. She was prescribed Wegovy but pharmacy still cannot get this in stock. Has done okay on phentermine in the past without side effect. Is wondering about 1 more trial of phentermine. Her sister and her mother are both on Wegovy or Ozempic but she cannot get it approved through insurance. Also reports she feels a fullness in her anterior neck bending forward for the past 6 weeks or so. Last thyroid-stimulating hormone testing was 06/06/2022. Would be due for retesting anyway. No swelling felt. No abnormality on exam today. Depression: She is feeling well and stable on her sertraline 150 mg a day. Does want her influenza vaccine today. JERRY VILLA [address], [place], [address], [facility]. 05/04/2023 21:29:21 10/31/2023 text/html HPI Notes: Oneida cedillo is a pleasant 58-year-old female here today for 6-month follow-up check-in to chronic condition management. Currently managed for anxiety with sertraline 150 mg daily along with 1 mg lorazepam daily as needed for acute anxiety. Feels this combination is working well for her. Continue with right lateral epicondylitis and now has some medial right sided epicondylitis as well. Has been using counter-force brace as instructed. Has not really been icing. Feels that the medial side is worse now. Reports her carpal tunnel syndrome symptoms have basically resolved for her hands. No longer gets numbness and tingling in her hands. Does have a cock up wrist splint if needed if flares again. Is still concerned about weight gain and weight loss. Says that she feels she is tried every diet but does not seem to lose weight. Has actually gained weight this visit. Audrey initially was sent in for weight management and was approved by insurance but then supply issues occurred and she could never pick it up. Was resent to as far as prescription most recently but insurance denied. She wants to talk about options for weight management. Feels she does have some binge eating tendencies and feels it would be helpful to take something to help decrease her binge eating. Currently treated for hypothyroidism on levothyroxine 100 mcg a day. Treated for GERD with omeprazole 20 mg daily. Currently on 40 mg atorvastatin for hyperlipidemia. Is concerned that she would like to be more active with exercise and weight loss however is having issues with thoracic back pain and macromastia. Always in pain with exercise and has to wear 3 sports bras. Is wondering about getting consult for breast reduction surgery. JERRY VILLA [address], [place], [address], [facility]. 11/01/2023 15:08:52 01/14/2024 text/html HPI Notes: Three nights ago, began noting lower abdominal cramping pain, with bloating. Some stool urgency/feeling of needing to have bowel movement. She did see a small amount of darker colored blood to stool at the time. No associated nausea, vomiting, or fevers. The next 2 days, also noted blood clot to bottom of toilet with following BMs. She attributed to possible contaminated food while travelling in [place]. This AM, did have another bowel movement, soft, per patient tarry in color, with a visible darker colored blood clot noted to outside. No visible pus to blood. No bright red blood noted with wiping. No rectal leakage, no incontinence. Later this AM, did sit on the toilet to pass gas, and had no stool, but did pass another dark blood clot. Reports fatigue, but no weakness, dizziness. Last night, upon coming home from [place], did feel very fatigued, and woke up with sweats, but no measurable fevers. Last colonoscopy 12/2015, entirely WNL, no polyps, no diverticulosis, no AVM abnormalities. Was advised 10 year follow up. She reports normal, daily BM, normally easy to pass, no straining. Patient denies any excessive use of NSAIDs, takes ibuprofen only rarely. She is taking daily omeprazole 20 mg for GERD, no history of PUD. SOPHY DO, JERRY [address], [place], [address], [facility]. 01/14/2024 20:00:12 OBGyn Episode No OBEpisode recorded.
--- OUTSIDE RECORDS SUMMARY | 2024-01-19 10:06 | XMS_ITS | Encounter Summary ---
[place] [address] Care Team Providers Care Director Geophysical Laboratory Name Role Phone Marcy Schmid APRN Primary Care Provider Reason for Referral * Consultation (Routine) - Authorized Specialty Diagnoses / Procedures Referred By Contac t Referred To Contact Weight and Wellness Diagnoses Body mass index 36.0-36.9, adult Marcy Schmid APRN [address] [place] [address] [facility] [place] [address] Referral ID Status Reason Start Date Expiration Date Visits Requested Visits Authorized [id number] Authorized Consult, Test & Treat PCP Updated and/or Approved 10/17/2023 11/16/2024 6 6 Encounter Details Date Type Department Care Team (Latest Contact Info) Description 10/17/2023 Transcribe Orders eDH Incoming Referrals [phone] Marcy Schmid APRN [address] [place], [place] [id number] Body mass index 36.0-36.9, adult Social History Tobacco Use Types Packs/Day Years [...] AM EDT [place] [address] Delroy Tomas MD [facility] [place] [address] 11/05/2024 10:00 AM EDT Office Visit [place] [address] Myrna Galvez MD [facility] [place] [address] Scheduled Referrals Name Type Priority Associated Diagnoses Orde r Schedule Referral to Weight & Wellness Center Outpatient Referral Routine Body mass index 36.0-36.9, adult Ordered: 10/17/2023 documented as of this encounter Visit Diagnoses Diagnosis Body mass index 36.0-36.9, adult Body Mass Index 36.0-36.9, adult documented in this encounter Care Teams Director Geophysical Laboratory Relationship Specialty Start Date End Date Marcy Schmid APRN [facility] [address] [place] [address] PCP - General Family Medicine 10/17/23 documented as of this encounter
--- OUTSIDE RECORDS SUMMARY | 2024-01-19 10:06 | XMS_ITS | Continuity of Care Document ---
Author Name [facility] Organization [facility] Care Team Providers Care Editorial Project Manager Name Role Phone [facility] Unavailable Unavailable Medications Combined list of outpatient medications from Department of Defense and Veterans Affairs facilities.Medications provided include 1) outpatient medications from the last 15 months, and 2) patient-reported medications. Medication Details Route Status Patient Instructions Prescription Expires Prescription Number Last Dispense Date Ordering Provider Order Date Order Qty Source AMOXICILLIN (AMOXICILLI N), 500 MG, CAPSULE, ORAL, [facility], 500 ea. BOTTLE Active [id number] 4 2023 30 Pharmac y Data Transac tion Service Facilit y ATORVASTATI N CALCIUM (atorvastat in calcium), 40 MG, TABLET, ORAL, [facility], 500 ea. BOTTLE Active [id number] 4 2023 90 Pharmac y Data Transac tion Service Facilit y ATORVASTATI N CALCIUM (atorvastat in calcium), 40 MG, TABLET, ORAL, [facility], 1000 ea. BOTTLE Active [id number] 4 2023 90 Pharmac y Data Transac tion Service Facilit y CONTRAVE (naltrexone HCl/bupropi on HCl), 8 MG-90 MG, TABLET ER, ORAL, NALPROPION/ CURR, 120 ea. BOTTLE Active [id number] 4 2023 70 Pharmac y Data Transac tion Service Facilit y GABAPENTIN (GABAPENTIN ), 100 MG, CAPSULE, ORAL, [facility], 500 ea. BOTTLE Active [id number] 4 2023 90 Pharmac y Data Transac tion Service Facilit y GABAPENTIN (GABAPENTIN ), 100 MG, CAPSULE, ORAL, [facility], 500 ea. BOTTLE Active [id number] 4 2023 90 Pharmac y Data Transac tion Service Facilit y GABAPENTIN (GABAPENTIN ), 100 MG, CAPSULE, ORAL, [facility], 500 ea. BOTTLE Active [id number] 4 2023 60 Pharmac y Data Transac tion Service Facilit y GABAPENTIN (GABAPENTIN ), 100 MG, CAPSULE, ORAL, [facility], 500 ea. BOTTLE Active [id number] 2023 60 Pharmac y Data Transac tion Service Facilit y GABAPENTIN (GABAPENTIN ), 100 MG, CAPSULE, ORAL, [facility], 500 ea. BOTTLE Active [id number] 2023 60 Pharmac y Data Transac tion Service Facilit y GABAPENTIN (GABAPENTIN ), 100 MG, CAPSULE, ORAL, [facility], 500 ea. BOTTLE Active [id number] 4 2023 60 Pharmac y Data Transac tion Service Facilit y GABAPENTIN (GABAPENTIN ), 100 MG, CAPSULE, ORAL, [facility], 500 ea. BOTTLE Active [id number] 2022 60 Pharmac y Data Transac tion Service Facilit y LEVOTHYROXI NE SODIUM (LEVOTHYROX INE SODIUM), 100MCG, TABLET, ORAL, MYLAN, 1000 ea. BOTTLE Active [id number] 2022 90 Pharmac y Data Transac tion Service Facilit y LEVOTHYROXI NE SODIUM (LEVOTHYROX INE SODIUM), 100MCG, TABLET, ORAL, MYLAN, 1000 ea. BOTTLE Active [id number] 4 2023 90 Pharmac y Data Transac tion Service Facilit y LORAZEPAM (lorazepam) , 1 MG, TABLET, ORAL, [facility], 500 ea. BOTTLE Active [id number] 2023 30 Pharmac y Data Transac tion Service Facilit y LORAZEPAM (lorazepam) , 1 MG, TABLET, ORAL, [facility], 500 ea. BOTTLE Active [id number] 3 2022 30 Pharmac y Data Transac tion Service Facilit y LORAZEPAM (lorazepam) , 1 MG, TABLET, ORAL, [facility] [employer], 100 ea. BOTTLE Active [id number] 4 2023 30 Pharmac y Data Transac tion Service Facilit y LORAZEPAM (lorazepam) , 1 MG, TABLET, ORAL, [facility] [employer], 100 ea. BOTTLE Active [id number] 4 2023 30 Pharmac y Data Transac tion Service Facilit y OMEPRAZOLE (OMEPRAZOLE ), 20MG, CAPSULE [facility], 1000 ea. BOTTLE Active [id number] 4 2023 90 Pharmac y Data Transac tion Service Facilit y OMEPRAZOLE (OMEPRAZOLE ), 20MG, CAPSULE [facility], [facility], 1000 ea. BOTTLE Active [id number] 4 2023 90 Pharmac y Data Transac tion Service Facilit y QSYMIA (PHENTERMIN E/TOPIRAMAT E), 3.75-23 MG, CPMP 24HR, ORAL, VIVUS, 30 ea. BOTTLE Cancele d [id number] : 2023 0 Pharmac y Data Transac tion Service Facilit y QSYMIA (PHENTERMIN E/TOPIRAMAT E), 3.75-23 MG, CPMP 24HR, ORAL, VIVUS, 30 ea. BOTTLE Active [id number] 4 2023 28 Pharmac y Data Transac tion Service Facilit y SERTRALINE HCL (SERTRALINE HCL), 100MG, TABLET, ORAL, [facility], 500 ea. BOTTLE Active [id number] 4 2023 135 Pharmac y Data Transac tion Service Facilit y SERTRALINE HCL (SERTRALINE HCL), 100MG, TABLET, ORAL, [facility], 500 ea. BOTTLE Active [id number] 4 2023 135 Pharmac y Data Transac tion Service Facilit y VALACYCLOVI R (VALACYCLOV IR HCL), 500 MG, TABLET, ORAL, [facility], 30 ea. BOTTLE Active [id number] 4 2023 10 Pharmac y Data Transac tion Service Facilit y VALACYCLOVI R (VALACYCLOV IR HCL), 500 MG, TABLET, ORAL, [facility], 30 ea. BOTTLE Active [id number] 4 2023 10 Pharmac y Data Transac tion Service Facilit y Immunizations Combined list of available immunizations from the Department of Defense and Veterans Affairs facilities. Immunization Series Date Given Administered By Site Reaction Lot Number CVX Code Drug Citrus Fruit Packer Status Comments Source COVID-19, mRNA, LNP-S, PF, 100 mcg or 50 mcg dose 2020 BRIGITTE, [employer] (MOD) Not Given COVID-19, mRNA, LNP-S, PF, 100 mcg or 50 mcg dose [facility] Influenza, injectable, MDCK, preservative free, quadrivalent 2020 TEDDY, () Not Given Influenza , injectabl e, MDCK, preservat ronal free, quadrival ent DoD Social History Combined list of available smoking, tobacco, and other social history from Department of Defense and Veterans Affairs facilities. Social History Type Response Date Comment [facility] e This section is an empty social history section. DoD
--- OUTSIDE RECORDS SUMMARY | 2024-01-19 10:06 | XMS_ITS | Encounter Summary ---
Author Organization [facility] [place] [address] Care Team Providers Care Carver And Checkerer Specials Name Role Phone Marcy Schmid APRN Primary Care Provider [phone] Reason for Visit * Reason Comments Advice Only Consult for BBR * Consultation (Routine) - Closed Specialty Diagnoses / Procedures Referred By Florian zhang Referred To Contact Plastic Surgery Diagnoses Hypertrophy of breast Procedures BBR Marcy Schmid APRN [address] [place] [address] [place] [address] [facility] Plastic Surg [address] [place] [address] Referral ID Status Reason Start Date Expiration Date V isits Requested Visits Authorized [id number] Closed Consult, Test & Treat 11/02/2023 11/01/2024 1 1 Encounter Details Date Type Department Care Team (Late st Contact Info) Description 12/03/2023 2:00 PM EDT Office [place] [address] Delroy Edward MD [facility] [place] [address] Macromastia Social History Tobacco Use Types Packs/Day Years [...] on file documented as of this encounter Last Filed Vital Signs Vital Sign Reading Time Taken Comments Blood Pressure - - Pulse - - Temperature - - Respiratory Rate - - Oxygen Saturation - - Inhaled Oxygen Concentration - - Weight 88.9 kg (196 lb) 12/03/2023 2:03 PM EDT Height 151.4 cm (4' 11.61) 12/03/2023 2:03 PM E DT Body Mass Index 38.79 12/03/2023 2:03 PM EDT documented in this encounter Progress Notes * Delroy Edward MD - 12/03/2023 2:00 PM EDT Images from the original note were not included. Plastic Surgery Consultation Note Provider: Delroy Edward MD PCP: Marcy Schmid APRN BELT DRESSER: As above. Reason for office visit: Symptomatic macromastia HPI: Emily Michael is a 58 y.o. female who presents today for evaluation of symptomatic macromastia. Her PCP is Marcy Schmid APRN and has requested the consultation. She is accompanied by her daughter and granddaughter for today???s visit. Patient admits to having neck, back, and shoulder pain, persistent shoulder strap grooving from the weight of her breasts, rashes under her breasts. The patient reports that she had been to a chiropractor in the past. The patient states that she has difficulty with vigorous activities, trouble finding bras and clothes that fit. She reports that her cup size has been stable for at least 6 months. The patient denies any major medical condition. Her surgical history is significant for hysterectomy. The patient denies a family history of breast cancer. Her most recent mammogram was in January 2023 and was normal per patient. This was performed at [facility]. The patient denies smoking or vaping tobacco. The patient report that she occasionally drinks alcohol. She has completed a breast specific questionnaire: Pertinent findings to emphasize are: No data to display No data to display Conservative Therapy Treatments: No data to display Past Medical History: Diagnosis Date Depression GERD (gastroesophageal reflux disease) Hypercholesteremia Past Surgical History: Procedure Laterality Date HYSTERECTOMY Family History Problem Relation Age of Onset Breast Cancer Neg Hx ROS: HEENT, GI, /Renal, Psych, Card, Pulm, Endo, Heme, Immun, Neuro: negative Examination: BMI: Ht 151.4 cm (4' 11.61) Wt 88.9 kg (196 lb) BMI 38.79 kg/m?? BSA: Body surface area is 1.93 meters squared. General: On my examination today, the patient appears to be in good health. Her emotional outlook is positive and she asked appropriate questions throughout the visit. Breasts: Breast Measurements Right Left Ptosis Grade 3 Grade 3 SN-N (cm) 40 37 IMF-N (cm) 13 16 Base diameter 15 15 Breast Vol (estimate in gms) 1600 1500 Resection (estimate in gms) 800 750 Impression: Symptomatic bilateral breast hypertrophy. Bilateral breast reduction is indicated for relief of her breast-related symptoms. She watched the JHONNY video on breast reduction, and was provided with an ASPS brochure and informed consent on breast reduction. It reviews the surgical risks, alternate skin incisions and pedicle versus free nipple graft techniques. It also discusses the optionof volume reduction by liposuction alone, which does not alter the nipple- areolar complex position.It talks about the impact of this surgery on decreasing breast cancer risk. We reviewed the timing of surgery relative to weight fluctuations and I've advised that surgery is best done at a realistic usp stable weight. We talked about the outpatient nature of the surgery, drains, postoperative recovery, and time required off work. Post-operative restrictions include no lifting, pushing, or pulling more than 5lbs for 4-6 weeks. I think Emily Michael would receive significant symptomatic relief from a bilateral breast reduction. The following risks were reviewed in the video or in our discussion: Surgical Risks which are greater with open reduction: bleeding with risk of hematoma (<5%); numbness, which may be temporary or permanent; scarring, including abnormal scarring; infection (5-10%);fat necrosis resulting in a breast mass and possible need for revision. I stressed the likelihood of minor problems with delayed wound healing (~30%) and the rare complication of nippleareolar necrosis. She is also aware that there may be some residual pain after the surgery and that there may possibly be some asymmetry. Vertical or Lollipop Incision: Less scarring on breast, but slightly greater risk for delayed healing and desire for scar revision. (She was informed that her insurer might not cover secondary revisions for scarring or asymmetry.) Rey or [place] Pattern Incision: More scarring on breast, but lower risk for scar revision. (She was informed that her insurer might not cover secondary revisions for scarring or asymmetry.) Pedicle Technique: volume of reduction may be limited by need to provide an adequate blood supply to the nipple. There is a very small risk of nipple loss. Most women (~60%) will be able to breast-feed. Free Nipple Graft: The grafts will initially have no sensation and once fully healed may not respond to temperature and touch as they do now. She has also been informed that they may not look entirely normal and may have patchy hypopigmentation. She will not be able to breast feed with this technique. After fully discussing the options, she has opted to pursue a: x Bilateral Breast Reduction Rey, Pedicle Bilateral Breast Reduction Rey, FNG Anticipated resection: 800 grams right breast and 750 grams left breast BSA [employer]/[place] All other / Schnur 1.93 825 1.95 855 575 The patient would like to proceed with surgery, however she is not a surgical candidate at this time given her BMI. The patient has been counseled for weight loss to BMI <35 prior to surgery. To address this concern I reviewed with the patient, taking careful measures that this is with no criticism or judgement, that her current weight of a BMI over 35 to increases surgical risks ralph and postoperative complications. The patient understands and she will continue to work on reducing her BMI.All questions were acknowledged and answered to the patient's satisfaction. I recommend that the patient follow up in the fall. Photos taken today with informed signed consent Plan: Follow up in three months Potential Surgical Grid: Duration: 2.5 hours Timeframe: Elective Procedure: Bilateral breast reduction CPT: 63337 Surgical Technique: Rey Surgical site: Breasts Side: Bilateral Anesthesia: General Follow up: 1 day for drain removal; 7-10 days for HCK H&P: With PCP Need to discontinue blood thinners pre-op? N/A Need mammogram? (at or over 40) Yes I, Suzy Strickland, have performed the documentation for this encounter in the presence of and acting as a scribe for DELROY EDWARD MD. I performed the services which were documented by the scribe, and I agree with the accuracy of the documentation in this encounter. DELROY EDWARD MD documented in this encounter Plan of Treatment Upcoming Encounters Date Type Department Care Team (Late st Contact Info) Description 04/07/2024 11:00 AM EDT Office [place] [address] Delroy Edward MD [facility] [place] [address] 11/05/2024 10:00 AM EDT Office Visit [place] [address] Myrna Galvez MD [facility] [place] [address] documented as of this encounter Visit Diagnoses Diagnosis Macromastia Hypertrophy of breast documented in this encounter Care Teams Carver And Checkerer Specials Relationship Specialty Start Date End Date Marcy Schmid, SEJAL [address] [place] [address] PCP - General Family Medicine 10/17/23 documented as of this encounter
--- OUTSIDE RECORDS SUMMARY | 2024-01-19 10:06 | XMS_ITS | Referral Summary ---
Author Organization [facility] Address [address] [place] [address] Care Team Providers Care Seed Mill Superintendent Name Role Phone Gui Purvis MD Primary Care Provider [phone] Encounters Date Type Department Care Team Description 01/15/2024 Lab Requisition [facility] Pathology & Laboratory Medicine - [facility] [address] [place] [address] Outr Resulting Lab, Provider from Last 3 Months Social History Tobacco Use Types Packs/Day Years Used Date Smoking Tobacco: Never Assessed Sex and Gender Information Value Date Recorded Sex Assigned at Not on file Gender Identity Not on file Sexual Orientation Not on file Plan of Treatment Not on file Procedures Procedure Name Priority Date/Time Associated Diagnosis Comments FECAL BACTERIAL PATHOGENS BY PCR Routine 01/15/2024 12:00 EDT HEPATITIS C AB W REFLEX TO HCV RNA BY PCR Routine 10/21/2020 9:25 EDT from Last 3 Months or Most Recently Relevant to Health Maintenance Results * FECAL BACTERIAL PATHOGENS BY PCR (01/15/2024 12:00 EDT) Salmonella PCR Negative Negative 01/16/2024 10:34 EDT [facility] Shigella/Enteroin vasive E. coli Negative Negative 01/16/2024 10:34 EDT [facility] HN LAB CAMPYLOBACTER PCR Negative Negative 01/16/2024 10:34 EDT [facility] Shiga Toxin PCR Negative Negative 10:34 EDT [facility] Feces SPECIMEN FROM RECTUM / Unknown 01/15/2024 12:00 EDT 01/15/2024 21:45 EDT Provider Outr Resulting Lab MICROBIOLOGY - GENERAL ORDERABLES [facility] [address] [place] [address] * HEPATITIS C AB W REFLEX TO HCV RNA BY PCR (10/21/2020 9:25 EDT) Hep C Antibody Negative Negative 10/22/2020 12:02 EDT [facility] Blood VENOUS BLOOD / Unknown 10/21/2020 9:25 EDT 10/21/2020 20:41 EDT Provider Outr Resulting Lab CHEMISTRY & BLOOD GAS ORDERABLES [facility] [address] [place] [address] from Last 3 Months or Most Recently Relevant to Health Maintenance Care Teams Seed Mill Superintendent Relationship Specialty Start Date End Date Gui Purvis MD PCP - General 03/22/15
--- OUTSIDE RECORDS SUMMARY | 2024-01-19 10:06 | XMS_ITS | Encounter Summary ---
Author Organization [facility] Address [address] [place] [address] Care Team Providers Care Door To Door Selling Agent Name Role Phone Gui Purvis MD Primary Care Provider [phone] Encounter Details Date Type Department Care Team (Late st Contact Info) Description 10/21/2020 Lab Requisition [facility] Pathology & Laboratory Medicine - [address] [address] Outr Resulting Lab, Provider Social History Tobacco [...] Procedure Name Priority Date/Time Associated Diagnosis Comments HEPATITIS C AB W REFLEX TO HCV RNA BY PCR Routine 10/21/2020 9:25 EDT documented in this encounter Results * HEPATITIS C AB W REFLEX TO HCV RNA BY PCR (10/21/2020 9:25 EDT) Hep C Antibody Negative Negative 10/22/2020 12:02 EDT [facility] Blood VENOUS BLOOD / Unknown 10/21/2020 9:25 EDT 10/21/2020 20:41 EDT Provider Outr Resulting Lab CHEMISTRY & BLOOD GAS ORDERABLES [facility] [address] [place] [address] documented in this encounter Visit Diagnoses Not on filedocumented in this encounter Care Teams Door To Door Selling Agent Relationship Specialty Start Date End Date Gui Purvis MD PCP - General 03/22/15 documented as of this encounter
--- OUTSIDE RECORDS SUMMARY | 2024-01-19 10:06 | XMS_ITS | Encounter Summary ---
Author Organization [facility] Address [address] [place] [address] Care Team Providers Care Senior Microsoft Consultant Name Role Phone Gui Purvis MD Primary Care Provider [phone] Encounter Details Date Type Department Care Team (Late st Contact Info) Description 04/13/2022 Lab Requisition [facility] Pathology & Laboratory Medicine - [facility] [address] [place], [place] [address] Outr Resulting Lab, Provider Social History Tobacco [...] Procedure Name Priority Date/Time Associated Diagnosis Comments CHLAMYDIA/N. GONORRHOEAE AMPLIFIED NUCLEIC ACID Routine 04/12/2022 18:24 EDT documented in this encounter Results * CHLAMYDIA/N. GONORRHOEAE AMPLIFIED RNA (04/12/2022 18:24 EDT) Neisseria gonorrhoeae Result Negative Negative 04/14/2022 15:58 EDT [facility] Chlamydia trachomatis Result Negative Negative 04/14/2022 15:58 EDT [facility] Swab ENTIRE VAGINA / Unknown 04/12/2022 18:24 EDT 04/13/2022 17:50 EDT Provider Outr Resulting Lab MICROBIOLOGY - GENERAL ORDERABLES [facility] [address] [place] [address] documented in this encounter Visit Diagnoses Not on filedocumented in this encounter Care Teams Senior Microsoft Consultant Relationship Specialty Start Date End Date Gui Purvis MD PCP - General 03/22/15 documented as of this encounter
--- OUTSIDE RECORDS SUMMARY | 2024-01-19 10:07 | XMS_ITS | Continuity of Care Document ---
Author Organization [facility], [facility] Address [address] [place] [address] Care Team Providers Care Manager Statistical Name Role Phone [facility] Dentist Assessment No assessment recorded. Plan of Treatment Reminders Order Date Submit Date Provider Last Modified By Organization Details Last Modified Time Details Appointments None recorded. Lab BMP, serum or plasma - 1 PST, 1 LAV obtained without issue from (R) [address] [facility] (Registration ), [address] [place] [address] [place], [address], 4 09:23:36 TSH + free T4, serum - 1 PST, 1 LAV obtained without issue from (R) 2023 024 [facility] (Registration ), [address] [place] [address] [place], [address], 4 09:23:36 HbA1c (hemoglobin A1c), blood - 1 PST, 1 LAV obtained without issue from (R) 2023 024 [email or web address] [address] [place] [address] [place], [address], 4 09:23:36 Referral plastic surgeon referral 2023 024 [facility], [address] [place], [address], 4 10:39:39 Procedures None recorded. Surgeries None recorded. Imaging None recorded. Medication Orders Contrave 8 mg-90 mg tablet,exte nded release 2023 024 [facility], [address] [place] [address], [address], 4 15:23:37 valacyclovi r 500 mg tablet 2023 024 [facility], [address] [place] [address], [address], 4 11:24:33 lorazepam 1 mg tablet 2023 024 [facility], [address] [place] [address], [address], 4 11:49:36 gabapentin 100 mg capsule 2023 024 [facility], [address] [place] [address], [address], 4 12:06:09 omeprazole 20 mg capsule,del ayed release 2023 024 [email or web address], [address] [place] [address], [address], 4 12:06:09 Patient TargetsNo targets recorded. Patient InstructionsNo instructions recorded. Reason for Referral Health Consultation for Body mass index 30+ - obesity Referring Physician: [facility], Encounter Date: 10/10/2023 Plastic Surgeon Referral for Macromastia breast reduction surgery consult, chronic thoracic back pain and shoulder pain. wants to exercise Referring Physician: [facility], Encounter Date: 10/31/2023 Disease Control Inspector Referral for Melena Referring Physician: [facility], Encounter Date: 01/17/2024 Results Created Date Observation Date Name Description Value Unit Range Abnormal Flag LastModifiedBy Organization Detail LastModifiedTime 01/14/20 24 01/14/2024 CT, abdom en + pelvi s, w/ contr ast Patien t Name: Jayjay Michael Unit #: [id number] Loc: DI Orderi ng Provid er: EDNA DO Accoun t #: [id number] Status : REG CLI Primar y [...] after treatm ent is sugges grover to docume nt resolu tion. 2. No absces s or free air. Unexpe cted findin gs RADIAT ION DOSE DELIVE RED: Total DLP DATA REPOSI TORY: All CT scans at this facili ty are submit grover to the [facility] al Radiol ogy Data Regist ry (NRDR) Dose Index Regist ry (DIR) with the [employer] (ACR). RADIAT ION OPTIMI ZATION : All CT scans at this facili ty use at least one of these dose optimi zation techni ques: automa grover exposu re contro l; mA and/or kV adjust ment per patien t size (inclu katy target ed exams where dose is matche d to clinic al indica tion); or iterat ronal recons tructi on 018: Total DLP = 0.00 mGy-cm Ordere d By: EDNA DO CC: ------ ------ ------ ------ ------ ------ ------ ------ ------ ------ ------ ------ ---- Dictat ed By: Julien Lucero M.D. 162 162 Transc ribed By: Julien Lucero 162 This is privil eged, confid ential inform ation intend ed only for the provid er named. Any use or distri bution by any person other than this provid er is strict ly prohib ited. If you receiv e this report in error, please notify us immedi lilyly at and return the origin al report to us at the addres s above. Thank- you. [email or web address] [facility] [address], [place], [address], 01/17/2024 12:00:05 Result Notes None recorded. Problems Name Status Onset Date Resolution Date Notes Provider Name and Address Organization Details Recorded Time Body mass index 30+ - obesity Active 201212/16/2022 - Comments only - Marcy Schmid SCREEN CUTTER AND TRIMMER - Stop phentermine. Weaning schedule given, half a tab daily for a week and then stop. Not helpful even though she has done it before with good effect. Start Wegovy 0.25 mg once weekly for 4 weeks then we will check in by phone. If no side effects we may increase to 0.5 mg. Problem Code: Z68.36; Problem Code Type: ICD-10; Not Available [facility] 3 05:24:51 Herpesvirus infection Active 2012 Problem Code: B00.89; Problem Code Type: ICD-10; Not Available [facility] 3 05:24:51 Hypothyroidis m Active 2012 Problem Code: E03.9; Problem Code Type: ICD-10; Not Available [facility] 05:24:51 Dysuria Completed 201402/15/2015 Problem Code: R30.0; Problem Code Type: ICD-10; Not Available [facility] 05:24:52 Abdominal pain Completed 201402/05/2015 Problem Code: R10.9; Problem Code Type: ICD-10; Not Available [facility] 3 05:24:52 Otitis media Completed 201608/18/2016 Problem Code: H66.90; Problem Code Type: ICD-10; Not Available [facility] 3 05:24:52 Acute sinusitis Completed 201605/11/2017 Problem Code: J01.90; Problem Code Type: ICD-10; Not Available [facility] 3 05:24:52 Gastroesophag eal reflux disease without esophagitis Active 2018 Problem Code: K21.9; Problem Code Type: ICD-10; Not Available [facility] 3 05:24:52 Generalized anxiety disorder Active 201911/20/2019 - Comments only - Kelly Layne APRN - Marvin disability related to anxiety. Encouraged counseling to supplement medication and manage anxiety that is situational and reactive with stressors. Problem Code: F41.1; Problem Code Type: ICD-10; Not Available [facility] 3 05:24:52 Hyperglycemia Active 202006/13/2022 - Comments only - Marcy Schmid SCREEN CUTTER AND TRIMMER - A1C ordered today Problem Code: R73.9; Problem Code Type: ICD-10; Not Available [facility] 3 05:24:52 Hyperlipidemi a Active 202006/13/2022 - Comments only - Marcy Schmid SCREEN CUTTER AND TRIMMER - cholesterol panel ordered today. Problem Code: E78.5; Problem Code Type: ICD-10; Not Available [facility] 3 05:24:52 Fat necrosis of breast Active 2021 Problem Code: N64.1; Problem Code Type: ICD-10; Not Available [facility] 3 05:24:52 Vitreous degeneration of left eye Active 2021 Problem Code: H43.812; Problem Code Type: ICD-10; Not Available [facility] 3 05:24:53 Chest pain Completed 202111/18/2021 Problem Code: R07.9; Problem Code Type: ICD-10; Not Available [facility] 3 05:24:53 Disorder of tongue Completed 202111/01/2023 06/13/2022 - Comments only - Marcy Schmid SCREEN CUTTER AND TRIMMER - Will follow up with ENT next week. Problem Code: K14.8; Problem Code Type: ICD-10; [address] [place], [address] , [facility] 4 14:50:34 Pain in left lower limb Active 202106/13/2022 - Comments only - Marcy Schmid SCREEN CUTTER AND TRIMMER - Exam and symptoms today consistent with femoral nerve entrapment syndrome. Discussed massage, heat, and montioring for how much it bothers her/affects her sleep or daily activities. Discussed gabapentin trial for at least at bedtime. Can refer to neurology if it continues or she wishes to see them for further testing. Problem Code: M79.605; Problem Code Type: ICD-10; Not Available [facility] 3 05:24:53 Increased frequency of urination Completed 202111/01/2023 06/13/2022 - Comments only - Marcy Schmid SCREEN CUTTER AND TRIMMER - see above. urinary testing negative today. Problem Code: R35.0; Problem Code Type: ICD-10; [address], [place], [address] , [facility] 4 14:49:39 Femoral neuropathy Active 202106/13/2022 - Comments only - Marcy Schmid SCREEN CUTTER AND TRIMMER - see above Problem Code: G57.20; Problem Code Type: ICD-10; Not Available [facility] 3 05:24:53 Counseling Completed 202106/26/2022 06/13/2022 - Comments only - Marcy Schmid SCREEN CUTTER AND TRIMMER - Now established on my panel. Will follow up as directed below, 6 months. sooner if concerns. Problem Code: Z71.89; Problem Code Type: ICD-10; [address], [place], [address] , [facility] 4 14:50:22 Overactive urinary bladder Active 202210/16/2022 - Comments only - Marcy Schmid SCREEN CUTTER AND TRIMMER - [facility], Dr. Magana, is managing this for now. Related to postsurgical issue with sutures with recent ureterovagina l prolapse surgical repair. Problem Code: N32.81; Problem Code Type: ICD-10; Not Available [facility] 3 05:24:56 Counseling Completed 202211/01/2023 12/16/2022 - Comments only - Marcy Schmid SCREEN CUTTER AND TRIMMER - Discussed diet and exercise in addition to starting Wegovy at low-dose 0.25 mg. Problem Code: Z71.89; Problem Code Type: ICD-10; [address], [place], [address] , [facility] 14:50:22 Screening for malignant neoplasm of breast Active 2022 Problem Code: Z12.39; Problem Code Type: ICD-10; Not Available [facility] 3 05:24:56 Carpal tunnel syndrome of right wrist Active 202201/20/2023 - Comments only - Marcy Schmid SCREEN CUTTER AND TRIMMER - try the cock-up wrist splint on [...] G56.01; Problem Code Type: ICD-10; Not Available [facility] 3 05:24:57 Lateral epicondylitis of right humerus Active 2022 Problem Code: M77.11; Problem Code Type: ICD-10; Not Available [facility] 3 05:24:57 Adult health examination Completed 201402/14/2016 Problem Code: Z00.00; Problem Code Type: ICD-10; Not Available [facility] 3 05:24:58 Increased frequency of urination Completed 202105/08/2022 Problem Code: R35.0; Problem Code Type: ICD-10; [address], [place], [address] , [facility]. 4 14:49:39 Acute pharyngitis Completed 201604/11/2017 Problem Code: J02.9; Problem Code Type: ICD-10; Not Available [facility] 3 05:24:59 Obesity Completed 201203/14/2023 Problem Code: E66.9; Problem Code Type: ICD-10; Not Available [facility] 3 05:24:59 History of depression Completed 201203/14/2023 Not Available [facility] 3 05:24:59 Postmenopausa l bleeding Completed 202110/16/2022 Problem Code: N95.0; Problem Code Type: ICD-10; Not Available [facility] 3 05:24:59 Viral screening Completed 202010/22/2020 Problem Code: Z11.59; Problem Code Type: ICD-10; Not Available [facility] 3 05:24:59 Urinary tract infectious disease Completed 201702/20/2019 Problem Code: N39.0; Problem Code Type: ICD-10; Not Available [facility] 3 05:25:00 Hyperlipidemi a Completed 201202/20/2019 Problem Code: E78.5; Problem Code Type: ICD-10; Not Available [facility] 3 05:25:00 Screening for malignant neoplasm of colon Completed 201510/22/2020 Problem Code: Z12.11; Problem Code Type: ICD-10; Not Available [facility] 3 05:25:00 Disorder of urinary bladder Completed 202110/16/2022 Problem Code: N32.9; Problem Code Type: ICD-10; Not Available [facility] 3 05:25:01 Anxiety Completed 201210/22/2020 Problem Code: F41.8; Problem Code Type: ICD-10; [address], [place], [address] , [facility] 3 23:51:48 Fatigue Completed 201504/03/2022 Problem Code: R53.83; Problem Code Type: ICD-10; Not Available [facility] 3 05:25:02 Streptococcal sore throat Completed 202104/03/2022 Problem Code: J02.0; Problem Code Type: ICD-10; Not Available [facility] 3 05:25:02 Adult health examination Completed 201510/16/2022 Problem Code: Z00.00; Problem Code Type: ICD-10; Not Available [facility] 3 05:25:02 Menorrhagia Completed 201402/20/2019 Problem Code: N92.4; Problem Code Type: ICD-10; Not Available [facility] 3 05:25:03 Glossodynia Completed 202104/03/2022 Problem Code: K14.6; Problem Code Type: ICD-10; Not Available [facility] 3 05:25:03 Dyslipidemia Completed 201203/14/2023 Not Available [facility] 3 05:25:05 Lower abdominal pain Completed 201810/22/2020 Problem Code: R10.30; Problem Code Type: ICD-10; Not Available [facility] 3 05:25:06 Abdominal distension, gaseous Completed 201402/20/2019 Problem Code: R14.0; Problem Code Type: ICD-10; Not Available [facility] 3 05:25:06 Disorder of lipoprotein AND/OR lipid metabolism Completed 201404/15/2015 Problem Code: E78.9; Problem Code Type: ICD-10; Not Available [facility] 3 05:25:06 Headache Completed 202104/03/2022 Problem Code: R51.9; Problem Code Type: ICD-10; Not Available [facility] 3 05:25:06 Localized enlarged lymph nodes Completed 201805/27/2019 Problem Code: R59.0; Problem Code Type: ICD-10; Not Available [facility] 3 05:25:07 Noninflammato ry disorder of uterus Completed 202110/16/2022 Problem Code: N85.9; Problem Code Type: ICD-10; Not Available [facility] 3 05:25:07 Anxiety Active 2022 Problem Code: F41.8; Problem Code Type: ICD-10; [address], [address] 3 23:51:48 Binge eating behavior Active [address], [address] 4 10:47:45 Femoral neuropathy Active [address], [address] 4 14:52:25 Macromastia Active [address], [address] 4 14:55:33 Thoracic back pain Active [address], [facility] [id number] [place] [address] 4 14:55:37 Notes:*Problem Name: Chronic Herpes (hsv) 2 Vulva *ICD-10 Codes: *Problem Status: inactive *Comments: *Note Date: 09/25/2012 Problem Notes None recorded. Medical Equipment None Reported. [...] by oral route. 05/04 completed RX from [facility] Not Available Not Available Not Available valacyclo [...] Updated DateTime 4 153.04 cm 37.5 kg/m2 21108.2 g 98.2 [degF] 76 /min 16 /min 110 mm[Hg] 76 mm[Hg] DAPHNE MARISCAL RN IN - [facility] 10:36:36 Social History Question Answer Notes LastModified by Organizat ion Details LastModified Time Tobacco Smoking Status Never Smoker DAPHNE MARISCAL RN [facility], [facility] 05/04/2023 09:55:10 What Is Your Level Of Alcohol Consumption? Occasional Information not available 05/04/2023 What Was The Date Of Your Most Recent Tobacco Screening? 01/14/2024 Information not available 01/14/2024 Do You Use [...] well sister has DM Children: 2, 21 Ingris Pugh, 18 Bob Pugh Family History of: Hypertension: [...] virus, quadrivalent, PF 05/04/[address], [place], [address], [facility] 05/04/2023 21:27:46 MMR 07/06/2014 completed Not Available [facility] 06:23:31 Tdap 02/20/2019 completed Not Available [facility] 06:23:31 Influenza, split virus, trivalent, preservative 08/12/2015 completed Not Available [facility] 04/27/2023 06:23:31 Influenza, split virus, quadrivalent, PF 03/27/2019 completed Not Available [facility] 04/27/2023 06:23:31 Influenza, split virus, quadrivalent, PF 04/03/2022 completed Not Available [facility] 04/27/2023 06:23:31 zoster recombinant 11/30/2020 completed Not Available [facility] 04/27/2023 06:23:32 zoster recombinant 02/01/2021 completed Not Available [facility] 04/27/2023 06:23:32 COVID-19, mRNA, LNP-S, PF, 100 mcg/0.5mL dose or 50 mcg/0.25mL dose 10/03/2020 completed Not Available [facility] 04/27/20 06:23:32 COVID-19, mRNA, LNP-S, PF, 100 mcg/0.5mL dose or 50 mcg/0.25mL dose 10/31/2020 completed Not Available [facility] 04/27/20 06:23:32 COVID-19, mRNA, LNP-S, PF, 100 mcg/0.5mL dose or 50 mcg/0.25mL dose 05/07/2021 completed Not Available [facility] 04/27/20 06:23:32 COVID-19, mRNA, LNP-S, bivalent, PF, 30 mcg/0.3 mL dose 06/06/2022 completed Not Available [facility] 04/27/2023 06:23:32 Hep B, unspecified formulation 07/06/2014 completed Not Available [facility] 04/27/2023 06:23:32 Hep B, unspecified formulation 08/07/2014 completed Not Available [facility] 04/27/2023 06:23:32 influenza, unspecified formulation 07/03/2014 completed Not Available [facility] 04/27/2023 06:23:32 influenza, unspecified formulation 03/25/2021 completed Not Available [facility] 04/27/2023 06:23:32 Past Encounters Encounter ID Performer Location Encounter Start Date Encounter Closed Date Diagnosis/Indication Diagnosis SNOMED-CT Code [id number] [address] [facility] [place] [address] 10/31/2023 10:22:46 10/31/2023 12:43:35 Pain in left lower limb 025528911 Herpesvirus infection 23 864518 Anxiety 18306589 Hypothyroidism 36723542 Gastroesop hageal reflux disease without esophagitis 046754655 Binge eating behavior 11 25337708 Body mass index 30+ - obesity 683938137 Macromastia 071816045 Lateral ep icondylitis of right humerus 19080074009791 7 Femoral neuropathy 63163 000 Thoracic back pain 24189 8004 Health Concerns Section Related Observation LastModified by Organization Detai ls LastModified Time None Recorded Concern Status LastModified by Organization Details LastModified Time None Recorded Payers Encounter Date Sequence Insurance Name Policy Number Policy Multani Covered Member ID Multani Member ID Guarantor Name 10/31/2023 1 [facility] () Emily Michael [id number] Emily Michael Notes Date Note Type Note Provider Name and Address Organization Details Recorded Time 10/31/2023 text/html HPI Notes: Oneida cedillo is [...] about getting consult for breast reduction surgery. MARCY SCHMID, DROP TESTER [address], [place], [address], [facility]. 11/01/2023 15:08:52 OBGyn Episode No OBEpisode recorded.
--- OUTSIDE RECORDS SUMMARY | 2024-01-19 10:07 | XMS_ITS | Continuity of Care Document ---
Author Organization [facility], [facility] Address [address] [place] [address] Care Team Providers Care Fullerette Name Role Phone [facility] Dentist Assessment No assessment recorded. Plan of Treatment Reminders Order Date Submit Date Provider Last Modified By Organization Details Last Modified Time Details Appointments None recorded. Lab CBC w/ auto diff [address] [facility] (Registration ), [address] [place] [address] [place], [address], 4 16:23:14 CMP, serum or plasma [address] [facility] (Registration ), [address] [place] [address] [place], [address], 4 16:35:14 C-reactive protein, quantitativ e, serum or plasma [address] [facility] (Registration ), [address] [place] [address] [place], [address], 4 16:36:51 venipunctur e - Right AC, Butterfly, 1 SST 1 PURPLE 2023 024 [email or web address] Not available 12:18:58 fecal occult blood, immunoassay , stool 2023 024 [email or web address] [facility], [address] [place] [address], [address], [place], [address], 4 12:23:05 gastrointes tinal pathogens panel, PCR, stool [address] [facility] ([facility]), [address] [place] [address] [place], [address], 4 12:07:07 giardia + cryptospori dium Ag, stool 2023 024 [email or web address] [facility] ([facility]), [address] [place] [address] [facility], [address], 4 14:40:03 O&P (ova & parasites), stool 2023 024 [email or web address] [facility] ([facility]), [address] [place] [address] [place], [address], 4 09:52:35 Referral None recorded. Procedures None recorded. Surgeries None recorded. Imaging CT, abdomen + pelvis, w/ contrast - Lower abdominal pain and cramping with blood in stool X 3 daysNo auth required. [address] [facility], [address], [place], [address], 4 12:00:05 Medication Orders dicyclomine 20 mg tablet 2023 024 [facility], [address] [place], [address], 4 17:15:01 prednisone 20 mg tablet 2023 024 [facility], [address] [place], [address], 4 17:18:09 Patient TargetsNo targets recorded. Patient Instructions Encounter Date Encounter Id Patient Instructions Last Modified By Organization Details Last Modified Time 01/14/2024 [id number] Today, we are checking bloodwork to look for your iron levels, any signs of infection or active blood loss, inflammation, as well as your electrolytes and kidney function and liver enzymes. We are going to check a CT scan of your abdomen and pelvis, and hopefully get this scheduled today at [facility]. We should be able to call with results this afternoon. To the ER for worsening abdominal pain, vomiting blood, weakness, passing out/fainting. [email or web address] Not available 01/14/2024 12:17:49 Reason for Referral Health Consultation for Body mass index 30+ - obesity Referring Physician: [facility], Encounter Date: 10/10/2023 Plastic Surgeon Referral for Macromastia breast reduction surgery consult, chronic thoracic back pain and shoulder pain. wants to exercise Referring Physician: Marcy Schmid [facility], Encounter Date: 10/31/2023 Scrap Sorter Referral for Melena Referring Physician: Vita Blandon [facility], Encounter Date: 01/17/2024 Results Created Date Observation Date Name Description Value Unit Range Abnormal Flag LastModifiedBy Organization Detail LastModifiedTime 01/14/2001/14/2024 fecal occul t blood , immun oassa y, stool iFOB positi ve Not Available [address], [place], [address], 01/14/2024 12:08:17 01/14/20 24 01/14/2024 CT, abdom en + pelvi s, w/ contr ast Patien t Name: Jayjay Michael Unit #: [id number] Loc: DI Orderi ng Provid er: EDNA DO Accoun t #: [id number] Status : REG CLI Primar y [...] treatm ent is sugges grover to [facility] nt resolu tion. 2. No absces s or free air. Unexpe cted findin gs RADIAT ION DOSE DELIVE RED: Total DLP DATA REPOSI TORY: All CT scans at this facili ty are submit grover to the [facility] al Radiol ogy Data Regist ry (NRDR) Dose Index Regist ry (DIR) with the [place] [employer] [place] of Radiol ogy (ACR). RADIAT ION OPTIMI ZATION : All CT scans at this facili ty use at least one of these dose optimi zation techni ques: automa grover exposu re contro l; mA and/or kV adjust ment per patien t size (inclu katy target ed exams where dose is matche d to clinic al indica tion); or iterat ronal recons tructi on. 018: Total DLP = 0.00 mGy-cm Ordere d By: EDNA OD CC: ------ ------ ------ ------ ------ ------ [...] report in error, please notify us immedi mahesh at and return the origin al report to us at the addres s above. Thank- you. [email or web address] [facility] [address], [place], [address], 01/17/2024 12:00:05 Result Notes None recorded. Problems Name Status Onset Date Resolution Date Notes Provider Name and Address Organization Details Recorded Time Body mass index 30+ - obesity Active 201212/16/2022 - Comments only - Marcy Schmid SUPERVISOR ADVICE - Stop phentermine. Weaning schedule given, half a tab daily for a week and then stop. Not helpful even though she has done it before with good effect. Start Wegovy 0.25 mg once weekly for 4 weeks then we will check in by phone. If no side effects we may increase to 0.5 mg. Problem Code: Z68.36; Problem Code Type: ICD-10; Not Available [facility] 3 05:24:51 Herpesvirus infection Active 2012 Problem Code: B00.89; Problem Code Type: ICD-10; Not Available [facility] 3 05:24:51 Hypothyroidis m Active 2012 Problem Code: E03.9; Problem Code Type: ICD-10; Not Available [facility] 3 05:24:51 Dysuria Completed 201402/15/2015 Problem Code: R30.0; Problem Code Type: ICD-10; Not Available [facility] 3 05:24:52 Abdominal pain Completed 201402/05/2015 Problem Code: R10.9; Problem Code Type: ICD-10; Not Available [facility] 3 05:24:52 Otitis media Completed 201608/18/2016 Problem Code: H66.90; Problem Code Type: ICD-10; Not Available [facility] 3 05:24:52 Acute sinusitis Completed 201605/11/2017 Problem Code: J01.90; Problem Code Type: ICD-10; Not Available [facility] 3 05:24:52 Gastroesophag eal reflux disease without esophagitis Active 2018 Problem Code: K21.9; Problem Code Type: ICD-10; Not Available [facility] 3 05:24:52 Generalized anxiety disorder Active 201911/20/2019 - Comments only - Kelly Bonhote GLUE LINE OPERATOR - Less disability related to anxiety. Encouraged counseling to supplement medication and manage anxiety that is situational and reactive with stressors. Problem Code: F41.1; Problem Code Type: ICD-10; Not Available [facility] 3 05:24:52 Hyperglycemia Active 202006/13/2022 - Comments only - Marcy Schmid SUPERVISOR ADVICE - A1C ordered today Problem Code: R73.9; Problem Code Type: ICD-10; Not Available [facility] 3 05:24:52 Hyperlipidemi a Active 202006/13/2022 - Comments only - Marcy Schmid SUPERVISOR ADVICE - cholesterol panel ordered today. Problem Code: E78.5; Problem Code Type: ICD-10; Not Available [facility] 3 05:24:52 Fat necrosis of breast Active 2021 Problem Code: N64.1; Problem Code Type: ICD-10; Not Available [facility] 3 05:24:52 Vitreous degeneration of left eye Active 2021 Problem Code: H43.812; Problem Code Type: ICD-10; Not Available [facility] 3 05:24:53 Chest pain Completed 202111/18/2021 Problem Code: R07.9; Problem Code Type: ICD-10; Not Available [facility] 3 05:24:53 Disorder of tongue Completed 202111/01/2023 06/13/2022 - Comments only - Marcy Schmid SUPERVISOR ADVICE - Will follow up with ENT next week. Problem Code: K14.8; Problem Code Type: ICD-10; [address], [place], [address] , [place] [facility]. 4 14:50:34 Pain in left lower limb Active 202106/13/2022 - Comments only - Marcy Schmid SUPERVISOR ADVICE - Exam and symptoms today consistent with femoral nerve entrapment syndrome. Discussed massage, heat, and montioring for how much it bothers her/affects her sleep or daily activities. Discussed gabapentin trial for at least at bedtime. Can refer to neurology if it continues or she wishes to see them for further testing. Problem Code: M79.605; Problem Code Type: ICD-10; Not Available [facility] 3 05:24:53 Increased frequency of urination Completed 202111/01/2023 06/13/2022 - Comments only - Marcy Schmid SUPERVISOR ADVICE - see above. urinary testing negative today. Problem Code: R35.0; Problem Code Type: ICD-10; [address], [place], [address] , [facility] 4 14:49:39 Femoral neuropathy Active 202106/13/2022 - Comments only - Marcy Schmid SUPERVISOR ADVICE - see above Problem Code: G57.20; Problem Code Type: ICD-10; Not Available [facility] hospital 05:24:53 Counseling Completed 202106/26/2022 06/13/2022 - Comments only - Marcy Schmid SUPERVISOR ADVICE - Now established on my panel. Will follow up as directed below, 6 months. sooner if concerns. Problem Code: Z71.89; Problem Code Type: ICD-10; [address], [place], [address] , [facility] 4 14:50:22 Overactive urinary bladder Active 202210/16/2022 - Comments only - Marcy Schmid SUPERVISOR ADVICE - [facility], Dr. Magana, is managing this for now. Related to postsurgical issue with sutures with recent ureterovagina l prolapse surgical repair. Problem Code: N32.81; Problem Code Type: ICD-10; Not Available [facility] 3 05:24:56 Counseling Completed 202211/01/2023 12/16/2022 - Comments only - Marcy Schmid SUPERVISOR ADVICE - Discussed diet and exercise in addition to starting Wegovy at low-dose 0.25 mg. Problem Code: Z71.89; Problem Code Type: ICD-10; [address], [place], [address] , [facility] 4 14:50:22 Screening for malignant neoplasm of breast Active 2022 Problem Code: Z12.39; Problem Code Type: ICD-10; Not Available [facility] 3 05:24:56 Carpal tunnel syndrome of right wrist Active 202201/20/2023 - Comments only - Marcy Schmid SUPERVISOR ADVICE - try the cock-up wrist splint on [...] G56.01; Problem Code Type: ICD-10; Not Available [facility] 3 05:24:57 Lateral epicondylitis of right humerus Active 2022 Problem Code: M77.11; Problem Code Type: ICD-10; Not Available [facility] 3 05:24:57 Adult health examination Completed 201402/14/2016 Problem Code: Z00.00; Problem Code Type: ICD-10; Not Available [facility] 3 05:24:58 Increased frequency of urination Completed 202105/08/2022 Problem Code: R35.0; Problem Code Type: ICD-10; [address], [place], [address] , [facility]. 4 14:49:39 Acute pharyngitis Completed 201604/11/2017 Problem Code: J02.9; Problem Code Type: ICD-10; Not Available [facility] 3 05:24:59 Obesity Completed 201203/14/2023 Problem Code: E66.9; Problem Code Type: ICD-10; Not Available [facility] 3 05:24:59 History of depression Completed 201203/14/2023 Not Available [facility] 3 05:24:59 Postmenopausa l bleeding Completed 202110/16/2022 Problem Code: N95.0; Problem Code Type: ICD-10; Not Available [facility] 3 05:24:59 Viral screening Completed 202010/22/2020 Problem Code: Z11.59; Problem Code Type: ICD-10; Not Available [facility] 3 05:24:59 Urinary tract infectious disease Completed 201702/20/2019 Problem Code: N39.0; Problem Code Type: ICD-10; Not Available [facility] 3 05:25:00 Hyperlipidemi a Completed 201202/20/2019 Problem Code: E78.5; Problem Code Type: ICD-10; Not Available [facility] 3 05:25:00 Screening for malignant neoplasm of colon Completed 201510/22/2020 Problem Code: Z12.11; Problem Code Type: ICD-10; Not Available [facility] 3 05:25:00 Disorder of urinary bladder Completed 202110/16/2022 Problem Code: N32.9; Problem Code Type: ICD-10; Not Available [facility] 3 05:25:01 Anxiety Completed 201210/22/2020 Problem Code: F41.8; Problem Code Type: ICD-10; [address], [place], [address] , [facility] 3 23:51:48 Fatigue Completed 201504/03/2022 Problem Code: R53.83; Problem Code Type: ICD-10; Not Available [facility] 3 05:25:02 Streptococcal sore throat Completed 202104/03/2022 Problem Code: J02.0; Problem Code Type: ICD-10; Not Available [facility] 3 05:25:02 Adult health examination Completed 201510/16/2022 Problem Code: Z00.00; Problem Code Type: ICD-10; Not Available [facility] 3 05:25:02 Menorrhagia Completed 201402/20/2019 Problem Code: N92.4; Problem Code Type: ICD-10; Not Available [facility] 3 05:25:03 Glossodynia Completed 202104/03/2022 Problem Code: K14.6; Problem Code Type: ICD-10; Not Available [facility] 3 05:25:03 Dyslipidemia Completed 201203/14/2023 Not Available [facility] 3 05:25:05 Lower abdominal pain Completed 201810/22/2020 Problem Code: R10.30; Problem Code Type: ICD-10; Not Available [facility] 3 05:25:06 Abdominal distension, gaseous Completed 201402/20/2019 Problem Code: R14.0; Problem Code Type: ICD-10; Not Available [facility] 3 05:25:06 Disorder of lipoprotein AND/OR lipid metabolism Completed 201404/15/2015 Problem Code: E78.9; Problem Code Type: ICD-10; Not Available [facility] 3 05:25:06 Headache Completed 202104/03/2022 Problem Code: R51.9; Problem Code Type: ICD-10; Not Available [facility] 3 05:25:06 Localized enlarged lymph nodes Completed 201805/27/2019 Problem Code: R59.0; Problem Code Type: ICD-10; Not Available [facility] 3 05:25:07 Noninflammato ry disorder of uterus Completed 202110/16/2022 Problem Code: N85.9; Problem Code Type: ICD-10; Not Available [facility] 3 05:25:07 Anxiety Active 2022 Problem Code: F41.8; Problem Code Type: ICD-10; [address], [place], [address] , [facility]. 3 23:51:48 Binge eating behavior Active [address], [place], [address] , [facility] 4 10:47:45 Femoral neuropathy Active [address], [facility] [address] , [facility] 4 14:52:25 Macromastia Active [address], [facility] [address] , [facility] 4 14:55:33 Thoracic back pain Active [address], [facility] [address] [place] [address] 4 14:55:37 Notes:*Problem Name: Chronic Herpes (hsv) [...] by oral route. 05/04 completed RX from [facility]IN[facility] Not Available Not Available Not Available valacyclo [...] and Address Organization Details Last Updated DateTime 153.04 cm 36.8 kg/m2 94385.5 5 g 98.4 [degF] 97 % 97 % 86 /min 17 /min 117 mm[Hg] 85 mm[Hg] LIZBETH WEISS MA [facility] 11:26:43 Social History Question Answer Notes LastModified by Organizat ion Details LastModified Time Tobacco Smoking Status Never Smoker DAPHNE MARISCAL RN null, [facility] 05/04/2023 09:55:10 What Is Your Level [...] quadrivalent, PF 05/04/[address] [place], [address], [facility] 05/04/2023 21:27:46 MMR 07/06/2014 completed Not Available [facility] 06:23:31 Tdap 02/20/2019 completed Not Available [facility] 06:23:31 Influenza, split virus, trivalent, preservative 08/12/2015 completed Not Available [facility] 04/27/2023 06:23:31 Influenza, split virus, quadrivalent, PF 03/27/2019 completed Not Available [facility] 04/27/2023 06:23:31 Influenza, split virus, quadrivalent, PF 04/03/2022 completed Not Available [facility] 04/27/2023 06:23:31 zoster recombinant 11/30/2020 completed Not Available [facility] 04/27/2023 06:23:32 zoster recombinant 02/01/2021 completed Not Available [facility] 04/27/2023 06:23:32 COVID-19, mRNA, LNP-S, PF, 100 mcg/0.5mL dose or 50 mcg/0.25mL dose 10/03/2020 completed Not Available [facility] 04/27/20 06:23:32 COVID-19, mRNA, LNP-S, PF, 100 mcg/0.5mL dose or 50 mcg/0.25mL dose 10/31/2020 completed Not Available [facility] 04/27/20 06:23:32 COVID-19, mRNA, LNP-S, PF, 100 mcg/0.5mL dose or 50 mcg/0.25mL dose 05/07/2021 completed Not Available [facility] 04/27/20 06:23:32 COVID-19, mRNA, LNP-S, bivalent, PF, 30 mcg/0.3 mL dose 06/06/2022 completed Not Available [facility] 04/27/2023 06:23:32 Hep B, unspecified formulation 07/06/2014 completed Not Available [facility] 04/27/2023 06:23:32 Hep B, unspecified formulation 08/07/2014 completed Not Available [facility] 04/27/2023 06:23:32 influenza, unspecified formulation 07/03/2014 completed Not Available [facility] 04/27/2023 06:23:32 influenza, unspecified formulation 03/25/2021 completed Not Available [facility] 04/27/2023 06:23:32 Past Encounters Encounter ID Performer Location Encounter Start Date Encounter Closed Date Diagnosis/Indication Diagnosis SNOMED-CT Code [id number] SOPHY DO CONCERT SINGER [address] [address] 01/14/2024 10:42:40 01/14/2024 12:28:07 Lower abdominal pain [id number] Melena [id number] Colitis [id number] Health Concerns Section Related Observation LastModified by Organization Detai ls LastModified Time None Recorded Concern Status LastModified by Organization Details LastModified Time None Recorded Payers Encounter Date Sequence Insurance Name Policy Number Policy Multani Covered Member ID Multani Member ID Guarantor Name 01/14/2024 1 FORMERLY [facility], 1928–1983 () Emily Michael [id number] Emily Michael Notes Date Note Type Note Provider Name and Address Organization Details Recorded Time 01/14/2024 text/html HPI Notes: Three nights ago, [...] to possible contaminated food while travelling in [place]. This AM, did have another bowel movement, [...] dizziness. Last night, upon coming home from [place], did feel very fatigued, and woke up [...] PUD. SOPHY DO, [address], [place], [address], [facility]. 01/14/2024 20:00:12 OBGyn Episode No OBEpisode recorded.
== END 2024-01-19 10:05 | disposition home or self-care (01) ==
LOC: LBN 10:04
PROVIDERS: Visit Provider Nurse Practitioner Family
DX: K52.9 Noninfective gastroenteritis and colitis, unspecified (principal)
CPT/HCPCS: 87329; 87177

== ENCOUNTER 2024-04-11 00:35 | Outpatient (CLI) | payer OTHER, SELFPAY ==
--- NOTE | 2024-04-11 | DI.MAMMO_ITS ---
Exam(s) MAMMO SCREENING EXAM: MAMMO SCREENING CLINICAL HISTORY: SCREENING, Z12.31,PREOP FOR BREAST REDUCTION SURGERY. TECHNIQUE: Bilateral full field digital CC and MLO mammographic images were obtained with 3D tomosyn thesis and utilizing computer aided detection (CAD). COMPARISON: Prior mammograms were reviewed. FINDINGS: There has been no significant change in the appearance and distribution of the fibroglandular tissue. There are no CAD designations. There are no new spiculated masses nor malignant appearing microcalcification groups. There is no significant architectural distortion nor skin thickening-retraction. IMPRESSION: No radiographic evidence of malignancy. BI-RADS Category 1 - Negative Breast Density - Category A - Almost entirely fatty Breast density Category C or D implies that the patient has dense breast tissue. Dense breast tissue can make it harder to find cancer on a mammogram. Dense breast tissue is also associated with an incr eased risk of breast cancer. This information about the result of the mammogram report was provided to the patient to raise their awareness. Use this report when you speak with the patient about their risks for breast cancer, which includes their family history. At that time, you may recommend additional screening tests (Ultrasoun d or MRI) as these tests may add significant information. A negative radiographic report should not delay biopsy if a dominant or clinically suspicious mass is present. Up to ten percent of cancers are not identified on mammography. A negative report may reinforce clinical impression. Adenosis and dense breasts may obscure an underlying neoplasm. False positive reports average 6 to 10%. Patient will receive a letter notifying them of these results.
== END 2024-04-11 00:55 ==
PROVIDERS: PCP Nurse Practitioner Family; Visit Provider Nurse Practitioner Family
DX: Z12.31 Encounter for screening mammogram for malignant neoplasm of breast (principal); Z01.818 Encounter for other preprocedural examination
CPT/HCPCS: 77063; 77067

== ENCOUNTER 2024-05-08 16:08 | Outpatient (REF) | payer OTHER, SELFPAY ==
[2024-05-08 18:36] LABS: HCT 42.2 % (36.0-46.0); HGB 13.6 g/dL (11.2-15.7); MCH 28.9 pg (27.0-33.0); MCHC 32.2 % (32.0-36.0); MCV 90 fL (80-95); MPV 11.9 fL (8.0-11.0); Platelet Count 235 10^3/uL (130-400); RDW 12.4 % (11.7-14.6); RDW-SD 41.1 fL; WBC 6.13 10^3/uL (4.4-10.8)
[2024-05-08 19:00] LABS: ALT 29 U/L (14-59); AST 29 U/L (15-37); Albumin 4.2 g/dL (3.4-5.0); Alkaline Phosphatase 131 U/L (46-116); Anion Gap 9.8 mmol/L (3-11); BUN 15 mg/dL (7-18); Bilirubin, Total 0.43 mg/dL (0.2-1.0); CO2 27.2 mmol/L (21.0-32.0); CREATININE 0.9 mg/dL (0.55-1.02); Calculated LDL 105 mg/dL (<100); Chloride 102 mmol/L (98-107); Cholesterol 204 mg/dL (<200); Glucose 84 mg/dL (74-106); HDL Cholesterol 80 mg/dL (40-60); Potassium 4.7 mmol/L (3.5-5.1); Sodium 139 mmol/L (136-145); Total Protein 7.8 g/dL (6.4-8.2); Triglyceride 96 mg/dL (<150)
[2024-05-08 19:17] LABS: Hemoglobin A1C 5.6 % (<5.7)
[2024-05-08 19:52] LABS: FREE T4 1.26 ng/dL (0.76-1.46)
== END 2024-05-08 16:09 | disposition home or self-care (01) ==
LOC: NCHCN 16:08
PROVIDERS: PCP Nurse Practitioner Family; Visit Provider Nurse Practitioner Family
DX: Z01.818 Encounter for other preprocedural examination (principal); E78.5 Hyperlipidemia, unspecified; E03.9 Hypothyroidism, unspecified
CPT/HCPCS: 80053; 80061; 85027; 83036; 84439; 84443

== ENCOUNTER 2024-10-15 19:00 | Outpatient (REF) | payer OTHER, SELFPAY ==
[2024-10-15 20:46] LABS: Abs Immature Grans 0.01 10^3/uL (0.0-0.06); Absolute Basophil Count 0.02 10^3/uL (0.0-0.2); Absolute Eosinophil Count 0.12 10^3/uL (0.0-0.7); Absolute Lymphocyte Count 1.61 10^3/uL (1.2-3.4); Absolute Monocyte Count 0.65 10^3/uL (0.1-0.8); Basophils % 0.4 %; Eosinophils % 2.1 %; HCT 41.5 % (36.0-46.0); Immature Grans % 0.2 %; Lymphocytes % 28.7 %; MCH 29.1 pg (27.0-33.0); MCHC 33.7 % (32.0-36.0); MCV 86 fL (80-95); MPV 12.5 fL (8.0-11.0); Monocytes % 11.6 %; Platelet Count 168 10^3/uL (130-400); RBC 4.81 10^6/uL (3.93-5.22); RDW 13.6 % (11.7-14.6); RDW-SD 43.2 fL; WBC 5.61 10^3/uL (4.4-10.8)
[2024-10-15 21:09] LABS: ALT 54 U/L (14-59); AST 53 U/L (15-37); Albumin 4.3 g/dL (3.4-5.0); Alkaline Phosphatase 191 U/L (46-116); Anion Gap 10.6 mmol/L (3-11); BUN 14 mg/dL (7-18); Bilirubin, Total 0.7 mg/dL (0.2-1.0); CO2 25.4 mmol/L (21.0-32.0); CREATININE 0.8 mg/dL (0.55-1.02); Calcium 9.8 mg/dL (8.5-10.1); Calculated LDL 97 mg/dL (<100); Chloride 102 mmol/L (98-107); Cholesterol 191 mg/dL (<200); Estimated GFR 84.82 (mL/min/1.73m2); Glucose 86 mg/dL (74-106); HDL Cholesterol 80 mg/dL (>or=50); Potassium 4.5 mmol/L (3.5-5.1); Sodium 138 mmol/L (136-145); TSH 0.44 uIU/mL (0.36-3.74); Total Protein 8.1 g/dL (6.4-8.2); Triglyceride 70 mg/dL (<150)
[2024-10-15 21:51] LABS: FREE T4 1.08 ng/dL (0.76-1.46)
== END 2024-10-15 19:01 | disposition home or self-care (01) ==
LOC: NCHCN 19:00
PROVIDERS: PCP Nurse Practitioner Family; Visit Provider Nurse Practitioner Family
DX: E78.5 Hyperlipidemia, unspecified (principal); E03.9 Hypothyroidism, unspecified; F41.9 Anxiety disorder, unspecified
CPT/HCPCS: 80053; 80061; 84439; 84443; 85025

== ENCOUNTER 2024-11-17 17:48 | Outpatient (REF) | payer OTHER, SELFPAY ==
[2024-11-17 15:13] LABS: ALT 64 U/L (14-59); AST 59 U/L (15-37); Albumin 4.2 g/dL (3.4-5.0); Alkaline Phosphatase 202 U/L (46-116); Bilirubin, Direct 0.2 mg/dL (0.0-0.2); Bilirubin, Total 0.5 mg/dL (0.2-1.0); GGT 334 U/L (5-55); Magnesium 2.3 mg/dL (1.8-2.4); Total Protein 7.5 g/dL (6.4-8.2)
[2024-11-17 16:02] LABS: Vitamin B12 368 pg/mL (193-986); Vitamin D 25 Total 33 ng/mL (30-100)
[2024-11-18 03:48] LABS: Hepatitis A Antibody IgM Negative (Negative); Hepatitis B Core Antibody Negative (Negative); Hepatitis B surface Ag Negative (Negative); Hepatitis C Ab w Rflx HCV PCR Negative (Negative)
== END 2024-11-17 17:49 | disposition home or self-care (01) ==
LOC: NCHCN 17:48
PROVIDERS: PCP Nurse Practitioner Family; Visit Provider Nurse Practitioner Family
DX: K22.70 Barrett's esophagus without dysplasia (principal); R79.89 Other specified abnormal findings of blood chemistry
CPT/HCPCS: 80076; 82306; 86704; 86709; 86803; 87340; 82607; 82977; 83735

== ENCOUNTER → 2025-05-25 00:29 | Outpatient (CLI) | payer OTHER, SELFPAY ==
--- NOTE | 2025-05-25 | DI.MAMMO_ITS ---
Exam(s) MAMMO SCREENING EXAM: MAMMO SCREENING CLINICAL HISTORY: SCREENING MAMMO Z12.31 TECHNIQUE: Mammograms were interpreted according to the usual protocol including computer analysis with CAD system, tomosynthesis and C-view imaging. COMPARISON: 2017 through 2023 FINDINGS: The breasts are composed of mainly fatty density , Breast Density category A. No suspicious masses or suspicious microcalcifications are seen. No skin thickening or abnormal axillary lymph nodes are seen. There has been bilateral breast reduction surgery since the previous exam. IMPRESSION: BI-RADS Category 1, Negative mammogram Yearly screening mammography is recommended. Breast Density- Category A - The breast are almost entirely fatty. Breast density Category C or D implies that the patient has dense breast tissue. Dense breast tissue can make it harder to find cancer on a mammogram. Dense breast tissue is also associated with an increased risk of breast cancer. This information about the result of the mammogram report was provided to the patient to raise their awareness. Use this report when you speak with the patient about their risks for breast cancer, which includes their family history. At that time, you may recommend additional screening tests (Ultrasound or MRI) as these tests may add significant information. A negative radiographic report should not delay biopsy if a dominant or clinically suspicious mass is present. Up to ten percent of cancers are not identified on mammography. A negative report may reinforce clinical impression. Adenosis and dense breasts may obscure an underlying neoplasm. False positive reports average 6 to 10%. Patient will receive a letter notifying them of these results.
== END ==
PROVIDERS: PCP Nurse Practitioner Family; Visit Provider Nurse Practitioner Family
DX: Z12.31 Encounter for screening mammogram for malignant neoplasm of breast (principal)
CPT/HCPCS: 77063; 77067